=== PATIENT | female | born 1970 | race Caucasian/White ===

== ENCOUNTER 2019-11-09 12:31 | Observation (INO) | payer BC ==
[2019-11-09] MEDS ORDERED: Sodium Chloride 0.9% 1,000 ML IV ONE ×3 (12:49→14:53)
[2019-11-09] MEDS ORDERED: Ondansetron 4 MG/2 ML SDV IVPUSH ONE (13:15)
--- NOTE | 2019-11-09 13:21 | EDM.PDOC ---
ED HPI GENERAL MEDICAL PROBLEM - General Chief Complaint: General Stated Complaint: VOMITING Time Seen by Provider: 11/09/19 12:53 Source of Information: Reports: Patient History Limitations: Reports: No Limitations - History of Present Illness INITIAL COMMENTS - FREE TEXT/NARRATIVE: HISTORY AND PHYSICAL: History of present illness: Patient is a 49-year-old female who presents to the emergency room today with vague complaints of dizziness and nausea/vomiting. She states she has not felt well over the past few days. She did see Dr. Méndez yesterday, for a follow ( not regarding today s/s) but did mention her nausea and vomiting. He wrote for her to receive Zofran, but hasn't pick it up yet. Patient does mention that she had a family member last month and did have some increased stress related to this, although does not feel this is what is causing her symptoms today. She states that when she gets up from sitting she has the sensation of near syncope and dizziness that improves with taking a few moments to collect herself. She states she does have some generalized shortness of breath with ambulation although states it is not bothersome. She is asymptomatic when at rest. Patient denies any fever, chills, headache, change in vision, syncope or near syncope. Denies any recent head injury, trauma or falls. Denies any chest pain, back pain or cough. Denies any abdominal pain, diarrhea, constipation or dysuria. Denies any chance of . Has not noted any blood in urine or stool. Patient has been eating and drinking appropriately. Review of systems: As per history of present illness and below otherwise all systems reviewed and negative. Past medical history: As per history of present illness and as reviewed below otherwise noncontributory. Surgical history: As per history of present illness and as reviewed below otherwise noncontributory. Social history: See social history for further information Family history: As per history of present illness and as reviewed below otherwise noncontributory. Physical exam: General: Well developed and well nourished 49-year-old female. Alert and oriented. Nontoxic-appearing and in no acute distress. HEENT: Atraumatic, normocephalic, pupils equal and reactive bilaterally, negative for conjunctival pallor or scleral icterus, mucous membranes moist, TMs normal bilaterally, throat clear, neck supple, nontender, trachea midline. No drooling or trismus noted. No meningeal signs. No hot potato voice noted. Lungs: Clear to auscultation, breath sounds equal bilaterally, chest nontender. Heart: S1S2, regular rate and rhythm without overt murmur Abdomen: Soft, nondistended, nontender. Negative for masses or hepatosplenomegaly. Negative for costovertebral tenderness. Pelvis: Stable nontender. Skin: Intact, warm, dry. No lesions or rashes noted. Extremities: Atraumatic, moves all extremities per self without difficulty or deficits, negative for cords or calf pain. Neurovascular unremarkable. Neuro: Awake, alert, oriented. Cranial nerves II through XII unremarkable. Cerebellum unremarkable. Motor and sensory unremarkable throughout. Exam nonfocal. Notes: Patient's pulse remained slightly elevated, lactic was added to her lab work. She does have a pretty significant urinary tract infection along with elevated lactic. Fluids have been running. Patient states she does not have any abdominal or flank pain/tenderness. The hospitalist was consulted on this patient and she is agreeable to keeping her for further care and management. Patient is aware and agreeable as well. Vital signs remained stable Diagnostics: CBC, CMP, UA, CXR, EKG, lactic Therapeutics: Normal Saline x 2, Zofran, Rocephin Impression: Urosepsis Plan: Observation admission to med/surg Definitive disposition and diagnosis as appropriate pending reevaluation and review of above. - Related Data Allergies Allergy/AdvReac Type Severity Reaction Status Date / Time No Known Allergies Allergy Verified 05/04/18 04:11 Home Meds: Home Meds buPROPion HCl [Wellbutrin Xl] 11/09/19 [History] Past Medical History - Past Health History Medical/Surgical History: Denies Medical/Surgical History Cardiovascular History: Reports: Blood Clots/VTE/DVT Musculoskeletal History: Reports: Back Pain, Chronic - Infectious Disease History Infectious Disease History: Reports: Chicken Pox - Past Surgical History HEENT Surgical History: Reports: Tonsillectomy GI Surgical History: Reports: Appendectomy Female Surgical History: Reports: Tubal Ligation Other Musculoskeletal Surgeries/Procedures:: had back surgery with rods/pins Social & Family History - Family History Family Medical History: Noncontributory - Tobacco Use Smoking Status *Q: Never Smoker - Caffeine Use Caffeine Use: Reports: Coffee, Soda - Recreational Drug Use Recreational Drug Use: No ED ROS GENERAL - Review of Systems Review Of Systems: Comprehensive ROS is negative, except as noted in HPI. ED EXAM, GENERAL - Physical Exam Exam: See Below (See dictation) Course - Vital Signs Last Recorded V/S: Last Vital Signs Temp 96.5 F L 11/09/19 12:42 Pulse 101 H 11/09/19 14:05 Resp 18 11/09/19 14:05 BP 138/90 11/09/19 14:05 Pulse Ox 98 11/09/19 14:05 - Orders/Labs/Meds Orders: Active Orders 24 hr Category Date Time Status Admission Status [Patient Status] [ADT] Stat ADT 11/09/19 15:09 Active EKG Documentation Completion [RC] STAT Care 11/09/19 12:49 Active CULTURE URINE [RM] Stat Lab 11/09/19 13:58 Received Sodium Chloride 0.9% [Normal Saline] 1,000 ml Med 11/09/19 14:31 Active IV STAT Sodium Chloride 0.9% [Normal Saline] 1,000 ml Med 11/09/19 14:53 Active IV STAT cefTRIAXone [Rocephin in Dextrose,Iso-Osm 1 GM/50 ML] 1 Med 11/09/19 14:45 Active gm Premix Bag 1 bag IV ONETIME Medication Orders Sodium Chloride (Normal Saline) 1,000 mls @ 999 mls/hr IV STAT ONE Stop: 11/09/19 15:31 Last Admin: 11/09/19 14:57 Dose: 999 mls/hr Ceftriaxone Sodium/Dextrose 1 (gm/ Premix) 50 mls @ 100 mls/hr IV ONETIME ONE Stop: 11/09/19 15:14 Last Admin: 11/09/19 14:57 Dose: 100 mls/hr Sodium Chloride (Normal Saline) 1,000 mls @ 999 mls/hr IV STAT ONE Stop: 11/09/19 15:53 Last Admin: 11/09/19 15:11 Dose: Not Given Labs: Laboratory Tests 11/09/19 11/09/19 11/09/19 Range/Units 12:55 12:55 13:58 WBC 5.95 (4.0-11.0) K/uL RBC 4.42 (4.30-5.90) M/uL Hgb 13.0 (12.0-16.0) g/dL Hct 39.2 (36.0-46.0) % MCV 88.7 (80.0-98.0) fL MCH 29.4 (27.0-32.0) pg MCHC 33.2 (31.0-37.0) g/dL RDW Std Deviation 58.2 (28.0-62.0) fl RDW Coeff of Michalea 18 H (11.0-15.0) % Plt Count 217 (150-400) K/uL MPV 10.80 (7.40-12.00) fL Neut % (Auto) 73.1 (48.0-80.0) % Lymph % (Auto) 15.0 L (16.0-40.0) % [place] % (Auto) 10.4 (0.0-15.0) % Eos % (Auto) 1.0 (0.0-7.0) % Baso % (Auto) 0.5 (0.0-1.5) % Neut # (Auto) 4.4 (1.4-5.7) K/uL Lymph # (Auto) 0.9 (0.6-2.4) K/uL [place] # (Auto) 0.6 (0.0-0.8) K/uL Eos # (Auto) 0.1 (0.0-0.7) K/uL Baso # (Auto) 0.0 (0.0-0.1) K/uL Nucleated RBC % 0.0 /100WBC Nucleated RBCs # 0 K/uL Lactate (0.20-2.00) mmol/L Sodium 139 (136-145) mmol/L Potassium 3.3 L (3.5-5.1) mmol/L Chloride 99 (98-107) mmol/L Carbon Dioxide 24.4 (21.0-32.0) mmol/L BUN 8 (7.0-18.0) mg/dL Creatinine 1.0 (0.6-1.0) mg/dL Est Cr Clr Drug Dosing 78.53 mL/min Estimated GFR (MDRD) 58.9 ml/min Glucose 96 (74-106) mg/dL Calcium 9.6 (8.5-10.1) mg/dL Total Bilirubin 1.6 H (0.2-1.0) mg/dL AST 88 H (15-37) IU/L ALT 73 H (14-63) IU/L Alkaline Phosphatase 84 (46-116) U/L Total Protein 7.8 (6.4-8.2) g/dL Albumin 4.0 (3.4-5.0) g/dL Globulin 3.8 (2.6-4.0) g/dL Albumin/Globulin Ratio 1.1 (0.9-1.6) Urine Color DARK YELLOW Urine Appearance SLT CLOUDY Urine pH 6.0 (5.0-8.0) Ur Specific [place] 1.025 (1.001-1.035) Urine Protein TRACE H (NEGATIVE) mg/dL Urine Glucose (UA) NEGATIVE (NEGATIVE) mg/dL Urine Ketones TRACE H (NEGATIVE) mg/dL Urine Occult Blood NEGATIVE (NEGATIVE) Urine Nitrite POSITIVE H (NEGATIVE) Urine Bilirubin MODERATE H (NEGATIVE) Urine Ictotest NEGATIVE Urine Urobilinogen 4.0 H (<2.0) EU/dL Ur Leukocyte Esterase TRACE H (NEGATIVE) Urine RBC 0-2 (0-2/HPF) Urine WBC 4-6 (0-5/HPF) Ur Epithelial Cells MODERATE (NONE-FEW) Urine Bacteria 4+ H (NEGATIVE) Urine Mucus LIGHT (NONE-MOD) 11/09/19 Range/Units 14:55 WBC (4.0-11.0) K/uL RBC (4.30-5.90) M/uL Hgb (12.0-16.0) g/dL Hct (36.0-46.0) % MCV (80.0-98.0) fL MCH (27.0-32.0) pg MCHC (31.0-37.0) g/dL RDW Std Deviation (28.0-62.0) fl RDW Coeff of Michaela (11.0-15.0) % Plt Count (150-400) K/uL MPV (7.40-12.00) fL Neut % (Auto) (48.0-80.0) % Lymph % (Auto) (16.0-40.0) % [place] % (Auto) (0.0-15.0) % Eos % (Auto) (0.0-7.0) % Baso % (Auto) (0.0-1.5) % Neut # (Auto) (1.4-5.7) K/uL Lymph # (Auto) (0.6-2.4) K/uL [place] # (Auto) (0.0-0.8) K/uL Eos # (Auto) (0.0-0.7) K/uL Baso # (Auto) (0.0-0.1) K/uL Nucleated RBC % /100WBC Nucleated RBCs # K/uL Lactate 3.0 H* (0.20-2.00) mmol/L Sodium (136-145) mmol/L Potassium (3.5-5.1) mmol/L Chloride (98-107) mmol/L Carbon Dioxide (21.0-32.0) mmol/L BUN (7.0-18.0) mg/dL Creatinine (0.6-1.0) mg/dL Est Cr Clr Drug Dosing mL/min Estimated GFR (MDRD) ml/min Glucose (74-106) mg/dL Calcium (8.5-10.1) mg/dL Total Bilirubin (0.2-1.0) mg/dL AST (15-37) IU/L ALT (14-63) IU/L Alkaline Phosphatase (46-116) U/L Total Protein (6.4-8.2) g/dL Albumin (3.4-5.0) g/dL Globulin (2.6-4.0) g/dL Albumin/Globulin Ratio (0.9-1.6) Urine Color Urine Appearance Urine pH (5.0-8.0) Ur Specific [place] (1.001-1.035) Urine Protein (NEGATIVE) mg/dL Urine Glucose (UA) (NEGATIVE) mg/dL Urine Ketones (NEGATIVE) mg/dL Urine Occult Blood (NEGATIVE) Urine Nitrite (NEGATIVE) Urine Bilirubin (NEGATIVE) Urine Ictotest Urine Urobilinogen (<2.0) EU/dL Ur Leukocyte Esterase (NEGATIVE) Urine RBC (0-2/HPF) Urine WBC (0-5/HPF) Ur Epithelial Cells (NONE-FEW) Urine Bacteria (NEGATIVE) Urine Mucus (NONE-MOD) Meds: Medications Generic Name Dose Route Start Last Admin Trade Name Freq PRN Reason Stop Dose Admin Sodium Chloride 1,000 mls @ 999 mls/hr 11/09/19 14:31 11/09/19 14:57 Normal Saline IV 11/09/19 15:31 999 mls/hr STAT ONE Administration Ceftriaxone Sodium/Dextrose 1 50 mls @ 100 mls/hr 11/09/19 14:45 11/09/19 14: 57 gm/ Premix IV 11/09/19 15:14 100 mls/hr ONETIME ONE Administration Sodium Chloride 1,000 mls @ 999 mls/hr 11/09/19 14:53 11/09/19 15:11 Normal Saline IV 11/09/19 15:53 Not Given STAT ONE Discontinued Medications Generic Name Dose Route Start Last Admin Trade Name Alpehsq PRN Reason Stop Dose Admin Sodium Chloride 1,000 mls @ 999 mls/hr 11/09/19 12:49 11/09/19 12:54 Normal Saline IV 11/09/19 13:49 999 mls/hr STAT ONE Administration Ondansetron HCl 4 mg 11/09/19 13:15 11/09/19 13:25 Zofran IVPUSH 11/09/19 13:16 4 mg ONETIME ONE Administration Departure - Departure Time of Disposition: 15:13 Disposition: Refer to Observation Clinical Impression: UTI, Urinary tract infectious disease Sepsis Qualifiers: Sepsis type: sepsis due to unspecified organism Sepsis acute organ dysfunction status: unspecified Qualified Code(s): A41.9 - Sepsis, unspecified organism - Discharge Information Referrals: Ryder Mann MD [Primary Care Provider] - Forms: ED Department Discharge Sepsis Event Note - Evaluation Sepsis Screening Result: No Definite Risk - Focused Exam Vital Signs: Vital Signs Temp Pulse Resp BP Pulse Ox 11/09/19 14:05 101 H 18 138/90 98 11/09/19 12:42 96.5 F L 106 H 16 138/92 H 100 Date Exam was Performed: 11/09/19 Time Exam was Performed: 15:12 - My Orders Last 24 Hours: My Active Orders 11/09/19 12:49 EKG Documentation Completion [RC] STAT 11/09/19 13:58 CULTURE URINE [RM] Stat 11/09/19 14:31 Sodium Chloride 0.9% [Normal Saline] 1,000 ml IV STAT 11/09/19 14:45 cefTRIAXone [Rocephin in Dextrose,Iso-Osm 1 GM/50 ML] 1 gm Premix Bag 1 bag IV ONETIME 11/09/19 14:53 Sodium Chloride 0.9% [Normal Saline] 1,000 ml IV STAT 11/09/19 15:09 Admission Status [Patient Status] [ADT] Stat - Assessment/Plan Last 24 Hours: My Active Orders 11/09/19 12:49 EKG Documentation Completion [RC] STAT 11/09/19 13:58 CULTURE URINE [RM] Stat 11/09/19 14:31 Sodium Chloride 0.9% [Normal Saline] 1,000 ml IV STAT 11/09/19 14:45 cefTRIAXone [Rocephin in Dextrose,Iso-Osm 1 GM/50 ML] 1 gm Premix Bag 1 bag IV ONETIME 11/09/19 14:53 Sodium Chloride 0.9% [Normal Saline] 1,000 ml IV STAT 11/09/19 15:09 Admission Status [Patient Status] [ADT] Stat
[2019-11-09 14:03] LABS: CARBON DIOXIDE,CO2 24.4 mmol/L (21.0-32.0); POTASSIUM,K 3.3 mmol/L (3.5-5.1)
--- NOTE | 2019-11-09 14:15 | CR ---
Chest: Portable view of the chest was obtained. Comparison: Prior chest x-ray of 05/04/18. Heart size and mediastinum are normal. Lungs are clear. Bony structures are grossly intact. Impression: 1. Nothing acute is seen on portable chest x-ray. Diagnostic code #1 This report was dictated in [place] Standard Time
[2019-11-09] MEDS ORDERED: cefTRIAXone 1 GM in Premix Bag 1 BAG IV ONE ×2 (14:45→18:15)
[2019-11-09] MEDS ORDERED: Ondansetron 4 MG Tab.DIS PO PRN (15:22)
[2019-11-09] MEDS ORDERED: Ondansetron 4 MG/2 ML SDV IVPUSH PRN (15:22)
[2019-11-09] MEDS ORDERED: Ibuprofen 600 MG Tab PO PRN (15:22)
[2019-11-09] MEDS ORDERED: Ketorolac 30 MG/ML SDV IV PRN (15:22)
[2019-11-09] MEDS ORDERED: Acetaminophen 325 MG Tab PO PRN (15:22)
[2019-11-09] MEDS ORDERED: Enoxaparin 40 MG/0.4 ML Syringe SUBCUT SCH (15:30)
[2019-11-09] MEDS ORDERED: Pantoprazole 40 MG in Sodium Chloride 0.9% 10 ML IV ONE (15:33)
--- NOTE | 2019-11-09 15:36 | PCM.HP.2 ---
H&P History of Present Illness - General Date of Service: 11/09/19 Admit Problem/Dx: Admission Diagnosis/Problem Admission Diagnosis/Problem Urosepsis - History of Present Illness Initial Comments - Free Text/Narative: 49 y/o female with history of alcohol abuse who presented to the ER complaining of nausea, vomiting and generalized weakness. She was seen yesterday by her PCP and was prescribed Zofran but she states she never picked it up. States she woke up this morning feeling nauseous, dry heaving. No chest pain, dyspnea. She would feel lightheaded when standing up. No syncopal episodes. Denies abdominal pain, dysuria, diarrhea. However, in the ER she was found to have UTI and elevated lactate 3.0. No leukocytosis. Mildly elevated LFTs. She was administered 2 L NS in the ER. - Related Data Allergies/Adverse Reactions: Allergies Allergy/AdvReac Type Severity Reaction Status Date / Time No Known Allergies Allergy Verified 05/04/18 04:11 Home Medications: Home Meds Ondansetron [Zofran ODT] 1 tab PO Q6HR PRN 11/09/19 [History] buPROPion HCl [Wellbutrin Xl] 300 mg PO DAILY 11/09/19 [History] Past Medical History - Past Health History Medical/Surgical History: Denies Medical/Surgical History Cardiovascular History: Reports: Blood Clots/VTE/DVT Musculoskeletal History: Reports: Back Pain, Chronic - Infectious Disease History Infectious Disease History: Reports: Chicken Pox - Past Surgical History HEENT Surgical History: Reports: Tonsillectomy GI Surgical History: Reports: Appendectomy Female Surgical History: Reports: Tubal Ligation Other Musculoskeletal Surgeries/Procedures:: had back surgery with rods/pins Social & Family History - Family History Family Medical History: Noncontributory - Tobacco Use Smoking Status *Q: Never Smoker - Caffeine Use Caffeine Use: Reports: Coffee, Soda - Recreational Drug Use Recreational Drug Use: No H&P Review of Systems - Review of Systems: Review Of Systems: Comprehensive ROS is negative, except as noted in HPI. Exam - Exam Exam: See Below - Vital Signs Vital Signs: Last Vital Signs Temp 36.3 C 11/09/19 14:35 Pulse 89 11/09/19 14:35 Resp 18 11/09/19 14:35 BP 141/92 H 11/09/19 14:35 Pulse Ox 99 02/12/20 14:35 Weight: 102.058 kg - Exam General: Alert, Oriented, Cooperative HEENT: Conjunctiva Clear. No: Mucosa Moist & [place] Lungs: Clear to Auscultation, Normal Respiratory Effort. No: Crackles, Wheezing Cardiovascular: Regular Rate, Regular Rhythm GI/Abdominal Exam: Normal Bowel Sounds, Soft, Non-Tender, No Distention Back Exam: Normal Inspection. No: CVA Tenderness (L), CVA Tenderness (R) Extremities: Normal Inspection, Non-Tender, No Pedal Edema Skin: Warm, Dry - Patient Data Lab Results Last 24 hrs: Laboratory Results - last 24 hr 11/09/19 11/09/19 11/09/19 Range/Units 12:55 12:55 13:58 WBC 5.95 (4.0-11.0) K/uL RBC 4.42 (4.30-5.90) M/uL Hgb 13.0 (12.0-16.0) g/dL Hct 39.2 (36.0-46.0) % MCV 88.7 (80.0-98.0) fL MCH 29.4 (27.0-32.0) pg MCHC 33.2 (31.0-37.0) g/dL RDW Std Deviation 58.2 (28.0-62.0) fl RDW Coeff of Michaela 18 H (11.0-15.0) % Plt Count 217 (150-400) K/uL MPV 10.80 (7.40-12.00) fL Neut % (Auto) 73.1 (48.0-80.0) % Lymph % (Auto) 15.0 L (16.0-40.0) % [place] % (Auto) 10.4 (0.0-15.0) % Eos % (Auto) 1.0 (0.0-7.0) % Baso % (Auto) 0.5 (0.0-1.5) % Neut # (Auto) 4.4 (1.4-5.7) K/uL Lymph # (Auto) 0.9 (0.6-2.4) K/uL [place] # (Auto) 0.6 (0.0-0.8) K/uL Eos # (Auto) 0.1 (0.0-0.7) K/uL Baso # (Auto) 0.0 (0.0-0.1) K/uL Nucleated RBC % 0.0 /100WBC Nucleated RBCs # 0 K/uL Lactate (0.20-2.00) mmol/L Sodium 139 (136-145) mmol/L Potassium 3.3 L (3.5-5.1) mmol/L Chloride 99 (98-107) mmol/L Carbon Dioxide 24.4 (21.0-32.0) mmol/L BUN 8 (7.0-18.0) mg/dL Creatinine 1.0 (0.6-1.0) mg/dL Est Cr Clr Drug Dosing 78.53 mL/min Estimated GFR (MDRD) 58.9 ml/min Glucose 96 (74-106) mg/dL Calcium 9.6 (8.5-10.1) mg/dL Total Bilirubin 1.6 H (0.2-1.0) mg/dL AST 88 H (15-37) IU/L ALT 73 H (14-63) IU/L Alkaline Phosphatase 84 (46-116) U/L Total Protein 7.8 (6.4-8.2) g/dL Albumin 4.0 (3.4-5.0) g/dL Globulin 3.8 (2.6-4.0) g/dL Albumin/Globulin Ratio 1.1 (0.9-1.6) Urine Color DARK YELLOW Urine Appearance SLT CLOUDY Urine pH 6.0 (5.0-8.0) Ur Specific [place] 1.025 (1.001-1.035) Urine Protein TRACE H (NEGATIVE) mg/dL Urine Glucose (UA) NEGATIVE (NEGATIVE) mg/dL Urine Ketones TRACE H (NEGATIVE) mg/dL Urine Occult Blood NEGATIVE (NEGATIVE) Urine Nitrite POSITIVE H (NEGATIVE) Urine Bilirubin MODERATE H (NEGATIVE) Urine Ictotest NEGATIVE Urine Urobilinogen 4.0 H (<2.0) EU/dL Ur Leukocyte Esterase TRACE H (NEGATIVE) Urine RBC 0-2 (0-2/HPF) Urine WBC 4-6 (0-5/HPF) Ur Epithelial Cells MODERATE (NONE-FEW) Urine Bacteria 4+ H (NEGATIVE) Urine Mucus LIGHT (NONE-MOD) 11/09/19 Range/Units 14:55 WBC (4.0-11.0) K/uL RBC (4.30-5.90) M/uL Hgb (12.0-16.0) g/dL Hct (36.0-46.0) % MCV (80.0-98.0) fL MCH (27.0-32.0) pg MCHC (31.0-37.0) g/dL RDW Std Deviation (28.0-62.0) fl RDW Coeff of Michaela (11.0-15.0) % Plt Count (150-400) K/uL MPV (7.40-12.00) fL Neut % (Auto) (48.0-80.0) % Lymph % (Auto) (16.0-40.0) % [place] % (Auto) (0.0-15.0) % Eos % (Auto) (0.0-7.0) % Baso % (Auto) (0.0-1.5) % Neut # (Auto) (1.4-5.7) K/uL Lymph # (Auto) (0.6-2.4) K/uL [place] # (Auto) (0.0-0.8) K/uL Eos # (Auto) (0.0-0.7) K/uL Baso # (Auto) (0.0-0.1) K/uL Nucleated RBC % /100WBC Nucleated RBCs # K/uL Lactate 3.0 H* (0.20-2.00) mmol/L Sodium (136-145) mmol/L Potassium (3.5-5.1) mmol/L Chloride (98-107) mmol/L Carbon Dioxide (21.0-32.0) mmol/L BUN (7.0-18.0) mg/dL Creatinine (0.6-1.0) mg/dL Est Cr Clr Drug Dosing mL/min Estimated GFR (MDRD) ml/min Glucose (74-106) mg/dL Calcium (8.5-10.1) mg/dL Total Bilirubin (0.2-1.0) mg/dL AST (15-37) IU/L ALT (14-63) IU/L Alkaline Phosphatase (46-116) U/L Total Protein (6.4-8.2) g/dL Albumin (3.4-5.0) g/dL Globulin (2.6-4.0) g/dL Albumin/Globulin Ratio (0.9-1.6) Urine Color Urine Appearance Urine pH (5.0-8.0) Ur Specific [place] (1.001-1.035) Urine Protein (NEGATIVE) mg/dL Urine Glucose (UA) (NEGATIVE) mg/dL Urine Ketones (NEGATIVE) mg/dL Urine Occult Blood (NEGATIVE) Urine Nitrite (NEGATIVE) Urine Bilirubin (NEGATIVE) Urine Ictotest Urine Urobilinogen (<2.0) EU/dL Ur Leukocyte Esterase (NEGATIVE) Urine RBC (0-2/HPF) Urine WBC (0-5/HPF) Ur Epithelial Cells (NONE-FEW) Urine Bacteria (NEGATIVE) Urine Mucus (NONE-MOD) Result Diagrams: 11/09/19 12:55 11/09/19 12:55 Angel Luis Results Last 24 hrs: Microbiology 11/09/19 14:34 Influenza Type A Antigen Screen - Final Nasopharyngeal Swab NEGATIVE INFLUENZA A VIRUS AG REFERENCE RANGE: NEGATIVE Influenza Type B Antigen Screen - Final NEGATIVE INFLUENZA B VIRUS AG REFERENCE RANGE: NEGATIVE Sepsis Event Note - Evaluation Sepsis Screening Result: No Definite Risk - Focused Exam Vital Signs: Vital Signs Temp Pulse Resp BP Pulse Ox 11/09/19 14:35 36.3 C 89 18 141/92 H 99 11/09/19 14:05 101 H 18 138/90 98 11/09/19 13:15 89 18 100 11/09/19 12:42 35.8 C L 106 H 16 138/92 H 100 Date Exam was Performed: 11/09/19 Time Exam was Performed: 17:26 Problem List Initiated/Reviewed/Updated: Yes Orders Last 24hrs: Active Orders 24 hr Category Date Time Status Admission Status [Patient Status] [ADT] Stat ADT 11/09/19 15:09 Active EKG Documentation Completion [RC] STAT Care 11/09/19 12:49 Active Intake and Output [RC] QSHIFT Care 11/09/19 15:22 Active Oxygen Therapy [RC] PRN Care 11/09/19 15:22 Active Up ad [place] [RC] ASDIRECTED Care 11/09/19 15:22 Active VTE/DVT Education [RC] PER UNIT ROUTINE Care 11/09/19 15:22 Active Vital Signs [RC] Q4H Care 11/09/19 15:22 Active Nothing per Oral Now Diet [DIET] Diet 11/09/19 Dinner Active Abdomen Pelvis w Cont [CT] Stat Exams 11/09/19 15:28 Ordered CBC WITH AUTO DIFF [HEME] AM Lab 11/10/19 05:11 Ordered CBC WITH AUTO DIFF [HEME] AM Lab 11/11/19 05:11 Ordered COMPREHENSIVE METABOLIC PN,CMP [CHEM] AM Lab 11/10/19 05:11 Ordered COMPREHENSIVE METABOLIC PN,CMP [CHEM] AM Lab 11/11/19 05:11 Ordered CULTURE BLOOD [BC] Stat Lab 11/09/19 15:25 Ordered CULTURE BLOOD [BC] Stat Lab 11/09/19 15:25 Ordered CULTURE URINE [RM] Stat Lab 11/09/19 13:58 Received HCG QUALITATIVE,URINE [URCHEM] Stat Lab 11/09/19 13:58 Received LACTATE WITH REFLEX [BG] Stat Lab 11/09/19 20:00 Ordered MAGNESIUM [CHEM] Stat Lab 11/09/19 15:35 Ordered Acetaminophen [Tylenol] Med 11/09/19 15:22 Active 650 mg PO Q4H PRN Enoxaparin [Lovenox] Med 11/09/19 15:30 Active 40 mg SUBCUT Q24H Ibuprofen [Motrin] Med 11/09/19 15:22 Active 600 mg PO Q6H PRN Ketorolac [Toradol] Med 11/09/19 15:22 Active 30 mg IV Q6H PRN Ondansetron [Zofran ODT] Med 11/09/19 15:22 Active 4 mg PO Q4H PRN Ondansetron [Zofran] Med 11/09/19 15:22 Active 4 mg IVPUSH Q4H PRN Pantoprazole [ProTONIX IV] 40 mg Med 11/10/19 09:00 Active Sodium Chloride 0.9% [Normal Saline] 10 ml IV DAILY Sodium Chloride 0.9% [Normal Saline] 1,000 ml Med 11/09/19 14:53 Active IV STAT Sodium Chloride 0.9% [Normal Saline] 1,000 ml Med 11/09/19 15:30 Active IV STAT cefTRIAXone [Rocephin in Dextrose,Iso-Osm 1 GM/50 ML] 1 Med 11/09/19 15:32 Active gm Premix Bag 1 bag IV ONETIME cefTRIAXone [Rocephin in Dextrose,Iso-Osm 2 GM/50 ML] 2 Med 11/10/19 14:00 Active gm Premix Bag 1 bag IV Q24H Blood Culture x2 Reflex Set [OM.PC] Stat Oth 11/09/19 15:25 Ordered Resuscitation Status Routine Resus Stat 11/09/19 15:22 Ordered Medication Orders Acetaminophen (Tylenol) 650 mg PO Q4H PRN PRN Reason: Pain (Mild 1-3)/fever Enoxaparin Sodium (Lovenox) 40 mg SUBCUT Q24H MARYAN Sodium Chloride (Normal Saline) 1,000 mls @ 999 mls/hr IV STAT ONE Stop: 11/09/19 15:53 Last Admin: 11/09/19 15:11 Dose: Not Given Sodium Chloride (Normal Saline) 1,000 mls @ 200 mls/hr IV STAT MARYAN Stop: 11/10/19 20:29 Ceftriaxone Sodium/Dextrose 1 (gm/ Premix) 50 mls @ 100 mls/hr IV ONETIME ONE Stop: 11/09/19 16:01 Ceftriaxone Sodium/Dextrose 2 (gm/ Premix) 50 mls @ 100 mls/hr IV Q24H MARYAN Pantoprazole Sodium 40 mg/ (Sodium Chloride) 10 mls @ 300 mls/hr IV DAILY MARYAN Ibuprofen (Motrin) 600 mg PO Q6H PRN PRN Reason: Pain (mild 1-3) Ketorolac Tromethamine (Toradol) 30 mg IV Q6H PRN PRN Reason: Pain (moderate 4-6) Ondansetron HCl (Zofran Odt) 4 mg PO Q4H PRN PRN Reason: nausea, able to take PO Ondansetron HCl (Zofran) 4 mg IVPUSH Q4H PRN PRN Reason: Nausea Assessment/Plan Comment:: A: 1. Severe sepsis secondary to UTI 2. Nausea, vomiting 3. Mildly elevated liver enzymes 4. PMH alcohol abuse, depression P: 1. Unsure about elevated lactate. Likely multifactorial due to UTI, dehydration. Will treat for sepsis secondary to UTI. Hydrate with NS 2L. Continue ceftriaxone 2 g IV daily, pending urine, blood cultures. Repeat lactate Q5H until normalized. Will advance diet as tolerated. Pantoprazole IV daily for suspected gastritis due to alcohol intake. May consider starting carafate once she can tolerate PO. CIWA assessment and ativan PRN for withdrawal symptoms. Dispo: 1-2 days.
[2019-11-09] MEDS: Sodium Chloride 0.9% 1,000 ML IV SCH ×2 (16:25→22:22)
[2019-11-09] MEDS ORDERED: Magnesium Sulfate/Water 2 GM in Premix Bag 1 BAG IV ONE (16:46)
[2019-11-09] MEDS: cefTRIAXone 1 GM in Premix Bag 1 BAG IV ONE ×2 (16:46→18:22)
[2019-11-09] MEDS ORDERED: Iopamidol 755 MG/ML 200 ML Multipack Bottle IVPUSH ONE (16:54)
--- NOTE | 2019-11-09 17:15 | CT ---
CT abdomen and pelvis Technique: Multiple axial sections were obtained from above the dome of the diaphragm inferiorly through the pubic symphysis. Intravenous contrast was utilized. No oral contrast has been given. Comparison: No prior abdominal imaging. Findings: Visualized lung bases show nothing acute. Diffuse fatty infiltration is seen within the liver. Spleen appears within normal limits. Adrenal glands show no nodule. Pancreas appears within normal limits. Gallbladder contains no calcified gallstones. Kidneys show symmetric contrast enhancement. No inflammatory change is noted around the kidneys. Aorta shows no aneurysm. No retroperitoneal adenopathy or mesenteric abnormalities are seen. No pelvic mass or adenopathy is seen. No free fluid or inflammatory change is seen within the abdomen or pelvis. Surgical material is seen next to the tip of the cecum. Appendix is not visualized. Bone window settings were reviewed which show degenerative change within the spine with previous surgery at L5-S1. No acute osseous finding is appreciated. Small fat-containing umbilical hernia is noted. Impression: 1. Diffuse fatty infiltration within the liver. 2. Other findings believed to be incidental as noted above. 3. Nothing acute is appreciated on CT study of the abdomen and pelvis. Note: Normal CT study does not exclude pyelonephritis. Study does excludes complications of pyelonephritis. Diagnostic code #2 This report was dictated in [place] Standard Time
[2019-11-09] MEDS ORDERED: LORazepam 2 MG/ML SDV IVPUSH PRN (17:17)
[2019-11-09] MEDS ORDERED: Temazepam 15 MG Cap PO PRN (17:39)
[2019-11-09] MEDS ORDERED: Morphine 2 MG/ML Syringe IVPUSH PRN (23:46)
[2019-11-10] MEDS: Apixaban 5 MG Tab PO SCH ×2 (00:24→08:34)
[2019-11-10] MEDS ORDERED: Sodium Chloride 0.9% 1,000 ML IV SCH (03:30)
[2019-11-10 06:25] LABS: BLOOD UREA NITROGEN,BUN 6 mg/dL (7.0-18.0); CARBON DIOXIDE,CO2 25.7 mmol/L (21.0-32.0); CHLORIDE,CL 106 mmol/L (98-107); GLUCOSE RANDOM 75 mg/dL (74-106); POTASSIUM,K 3.6 mmol/L (3.5-5.1); SODIUM,NA 140 mmol/L (136-145)
[2019-11-10] MEDS ORDERED: Pantoprazole 40 MG in Sodium Chloride 0.9% 10 ML IV SCH (09:00)
[2019-11-10 11:49] VITALS: BP 144/96; PULSE 79
--- NOTE | 2019-11-10 12:28 | PCM.DCSUM1 ---
Discharge Summary - Hospital Course Free Text/Narrative:: 49 y/o female who presented to the ER complaining of nausea, vomiting. She was found to have elevated lactate and UTI. Admitted for severe sepsis secondary to UTI. She was aggressively hydrated and started on ceftriaxone. She did relatively well. Lactate normalized and symptoms had resolved. She was discharged home on omeprazole, carafate and nitrofurantoin. She was advised to abstain from alcohol and any mood altering substance. Follow-up with PCP in 1-2 weeks. - Discharge Data Discharge Date: 11/10/19 Discharge Disposition: Home, Self-Care 01 Condition: Good - Referral to Home Health Primary Care Physician: Ryder Brewer MD - Patient Instructions Diet: Regular Diet as Tolerated, No Alcoholic Beverages Activity: As Tolerated Notify Provider of: Fever, Increased Pain, Swelling and Redness, Nausea and/or Vomiting - Discharge Plan Prescriptions/Med Rec: Nitrofurantoin Monohyd/M-Cryst [Macrobid 100 mg Capsule] 100 mg PO BID 3 Days # 6 capsule Omeprazole 20 mg PO ACBREAKFAST 30 Days #30 cap.sr Sucralfate [Carafate] 1 gm PO TIDAC 5 Days #15 cup Home Medications: Home Meds Apixaban [Eliquis] 5 mg PO BID 11/09/19 [History] Ondansetron [Zofran ODT] 1 tab PO Q6HR PRN 11/09/19 [History] buPROPion HCl [Wellbutrin Xl] 300 mg PO DAILY 11/09/19 [History] Nitrofurantoin Monohyd/M-Cryst [Macrobid 100 mg Capsule] 100 mg PO BID 3 Days # 6 capsule 11/10/19 [Rx] Omeprazole 20 mg PO ACBREAKFAST 30 Days #30 cap.sr 11/10/19 [Rx] Sucralfate [Carafate] 1 gm PO TIDAC 5 Days #15 cup 11/10/19 [Rx] Patient Handouts: Nitrofurantoin tablets or capsules, Gastritis, Adult, Sucralfate tablets, Urosepsis, Omeprazole tablets (OTC) Referrals: Ryder Mann MD [Primary Care Provider] - 11/22/19 1:00 pm - Discharge Summary/Plan Comment DC Time >30 min.: No - Patient Data Vitals - Most Recent: Last Vital Signs Temp 36.6 C 11/10/19 11:57 Pulse 79 11/10/19 11:57 Resp 16 11/10/19 11:57 BP 144/96 H 11/10/19 11:57 Pulse Ox 96 11/10/19 11:57 Weight - Most Recent: 102.058 kg I&O - Last 24 hours: Intake & Output 11/09/19 11/10/19 11/10/19 22:59 06:59 14:59 Intake Total 60 980 Output Total 400 Balance 60 580 Lab Results - Last 24 hrs: Laboratory Results - last 24 hr 11/09/19 11/09/19 11/09/19 Range/Units 12:55 12:55 12:55 WBC 5.95 (4.0-11.0) K/uL RBC 4.42 (4.30-5.90) M/uL Hgb 13.0 (12.0-16.0) g/dL Hct 39.2 (36.0-46.0) % MCV 88.7 (80.0-98.0) fL MCH 29.4 (27.0-32.0) pg MCHC 33.2 (31.0-37.0) g/dL RDW Std Deviation 58.2 (28.0-62.0) fl RDW Coeff of Michaela 18 H (11.0-15.0) % Plt Count 217 (150-400) K/uL MPV 10.80 (7.40-12.00) fL Neut % (Auto) 73.1 (48.0-80.0) % Lymph % (Auto) 15.0 L (16.0-40.0) % Meade % (Auto) 10.4 (0.0-15.0) % Eos % (Auto) 1.0 (0.0-7.0) % Baso % (Auto) 0.5 (0.0-1.5) % Neut # (Auto) 4.4 (1.4-5.7) K/uL Lymph # (Auto) 0.9 (0.6-2.4) K/uL Meade # (Auto) 0.6 (0.0-0.8) K/uL Eos # (Auto) 0.1 (0.0-0.7) K/uL Baso # (Auto) 0.0 (0.0-0.1) K/uL Nucleated RBC % 0.0 /100WBC Nucleated RBCs # 0 K/uL Lactate (0.20-2.00) mmol/L Sodium 139 (136-145) mmol/L Potassium 3.3 L (3.5-5.1) mmol/L Chloride 99 (98-107) mmol/L Carbon Dioxide 24.4 (21.0-32.0) mmol/L BUN 8 (7.0-18.0) mg/dL Creatinine 1.0 (0.6-1.0) mg/dL Est Cr Clr Drug Dosing 78.53 mL/min Estimated GFR (MDRD) 58.9 ml/min Glucose 96 (74-106) mg/dL Calcium 9.6 (8.5-10.1) mg/dL Magnesium 1.3 L (1.8-2.4) mg/dL Total Bilirubin 1.6 H (0.2-1.0) mg/dL AST 88 H (15-37) IU/L ALT 73 H (14-63) IU/L Alkaline Phosphatase 84 (46-116) U/L Total Protein 7.8 (6.4-8.2) g/dL Albumin 4.0 (3.4-5.0) g/dL Globulin 3.8 (2.6-4.0) g/dL Albumin/Globulin Ratio 1.1 (0.9-1.6) Urine Color Urine Appearance Urine pH (5.0-8.0) Ur Specific [place] (1.001-1.035) Urine Protein (NEGATIVE) mg/dL Urine Glucose (UA) (NEGATIVE) mg/dL Urine Ketones (NEGATIVE) mg/dL Urine Occult Blood (NEGATIVE) Urine Nitrite (NEGATIVE) Urine Bilirubin (NEGATIVE) Urine Ictotest Urine Urobilinogen (<2.0) EU/dL Ur Leukocyte Esterase (NEGATIVE) Urine RBC (0-2/HPF) Urine WBC (0-5/HPF) Ur Epithelial Cells (NONE-FEW) Urine Bacteria (NEGATIVE) Urine Mucus (NONE-MOD) Urine HCG, Qual (NEGATIVE) 11/09/19 11/09/19 11/09/19 Range/Units 13:58 13:58 14:55 WBC (4.0-11.0) K/uL RBC (4.30-5.90) M/uL Hgb (12.0-16.0) g/dL Hct (36.0-46.0) % MCV (80.0-98.0) fL MCH (27.0-32.0) pg MCHC (31.0-37.0) g/dL RDW Std Deviation (28.0-62.0) fl RDW Coeff of Michaela (11.0-15.0) % Plt Count (150-400) K/uL MPV (7.40-12.00) fL Neut % (Auto) (48.0-80.0) % Lymph % (Auto) (16.0-40.0) % Meade % (Auto) (0.0-15.0) % Eos % (Auto) (0.0-7.0) % Baso % (Auto) (0.0-1.5) % Neut # (Auto) (1.4-5.7) K/uL Lymph # (Auto) (0.6-2.4) K/uL Meade # (Auto) (0.0-0.8) K/uL Eos # (Auto) (0.0-0.7) K/uL Baso # (Auto) (0.0-0.1) K/uL Nucleated RBC % /100WBC Nucleated RBCs # K/uL Lactate 3.0 H* (0.20-2.00) mmol/L Sodium (136-145) mmol/L Potassium (3.5-5.1) mmol/L Chloride (98-107) mmol/L Carbon Dioxide (21.0-32.0) mmol/L BUN (7.0-18.0) mg/dL Creatinine (0.6-1.0) mg/dL Est Cr Clr Drug Dosing mL/min Estimated GFR (MDRD) ml/min Glucose (74-106) mg/dL Calcium (8.5-10.1) mg/dL Magnesium (1.8-2.4) mg/dL Total Bilirubin (0.2-1.0) mg/dL AST (15-37) IU/L ALT (14-63) IU/L Alkaline Phosphatase (46-116) U/L Total Protein (6.4-8.2) g/dL Albumin (3.4-5.0) g/dL Globulin (2.6-4.0) g/dL Albumin/Globulin Ratio (0.9-1.6) Urine Color DARK YELLOW Urine Appearance SLT CLOUDY Urine pH 6.0 (5.0-8.0) Ur Specific [place] 1.025 (1.001-1.035) Urine Protein TRACE H (NEGATIVE) mg/dL Urine Glucose (UA) NEGATIVE (NEGATIVE) mg/dL Urine Ketones TRACE H (NEGATIVE) mg/dL Urine Occult Blood NEGATIVE (NEGATIVE) Urine Nitrite POSITIVE H (NEGATIVE) Urine Bilirubin MODERATE H (NEGATIVE) Urine Ictotest NEGATIVE Urine Urobilinogen 4.0 H (<2.0) EU/dL Ur Leukocyte Esterase TRACE H (NEGATIVE) Urine RBC 0-2 (0-2/HPF) Urine WBC 4-6 (0-5/HPF) Ur Epithelial Cells MODERATE (NONE-FEW) Urine Bacteria 4+ H (NEGATIVE) Urine Mucus LIGHT (NONE-MOD) Urine HCG, Qual NEGATIVE (NEGATIVE) 11/09/19 11/10/19 11/10/19 Range/Units 20:06 05:57 05:57 WBC 2.39 L (4.0-11.0) K/uL RBC 3.50 L (4.30-5.90) M/uL Hgb 10.3 L (12.0-16.0) g/dL Hct 32.0 L (36.0-46.0) % MCV 91.4 (80.0-98.0) fL MCH 29.4 (27.0-32.0) pg MCHC 32.2 (31.0-37.0) g/dL RDW Std Deviation 61.1 (28.0-62.0) fl RDW Coeff of Michaela 18 H (11.0-15.0) % Plt Count 121 L (150-400) K/uL MPV 10.30 (7.40-12.00) fL Neut % (Auto) 62.0 (48.0-80.0) % Lymph % (Auto) 22.6 (16.0-40.0) % [place] % (Auto) 12.1 (0.0-15.0) % Eos % (Auto) 2.5 (0.0-7.0) % Baso % (Auto) 0.8 (0.0-1.5) % Neut # (Auto) 1.5 (1.4-5.7) K/uL Lymph # (Auto) 0.5 L (0.6-2.4) K/uL [place] # (Auto) 0.3 (0.0-0.8) K/uL Eos # (Auto) 0.1 (0.0-0.7) K/uL Baso # (Auto) 0.0 (0.0-0.1) K/uL Nucleated RBC % 0.0 /100WBC Nucleated RBCs # 0 K/uL Lactate 1.3 (0.20-2.00) mmol/L Sodium 140 (136-145) mmol/L Potassium 3.6 (3.5-5.1) mmol/L Chloride 106 (98-107) mmol/L Carbon Dioxide 25.7 (21.0-32.0) mmol/L BUN 6 L (7.0-18.0) mg/dL Creatinine 0.8 (0.6-1.0) mg/dL Est Cr Clr Drug Dosing 98.16 mL/min Estimated GFR (MDRD) > 60.0 ml/min Glucose 75 (74-106) mg/dL Calcium 7.7 L (8.5-10.1) mg/dL Magnesium 1.8 (1.8-2.4) mg/dL Total Bilirubin 1.0 (0.2-1.0) mg/dL AST 49 H (15-37) IU/L ALT 53 (14-63) IU/L Alkaline Phosphatase 62 (46-116) U/L Total Protein 5.8 L (6.4-8.2) g/dL Albumin 2.8 L (3.4-5.0) g/dL Globulin 3.0 (2.6-4.0) g/dL Albumin/Globulin Ratio 0.9 (0.9-1.6) Urine Color Urine Appearance Urine pH (5.0-8.0) Ur Specific [place] (1.001-1.035) Urine Protein (NEGATIVE) mg/dL Urine Glucose (UA) (NEGATIVE) mg/dL Urine Ketones (NEGATIVE) mg/dL Urine Occult Blood (NEGATIVE) Urine Nitrite (NEGATIVE) Urine Bilirubin (NEGATIVE) Urine Ictotest Urine Urobilinogen (<2.0) EU/dL Ur Leukocyte Esterase (NEGATIVE) Urine RBC (0-2/HPF) Urine WBC (0-5/HPF) Ur Epithelial Cells (NONE-FEW) Urine Bacteria (NEGATIVE) Urine Mucus (NONE-MOD) Urine HCG, Qual (NEGATIVE) KAYLYN Results - Last 24 hrs: Microbiology 11/09/19 14:34 Influenza Type A Antigen Screen - Final Nasopharyngeal Swab NEGATIVE INFLUENZA A VIRUS AG REFERENCE RANGE: NEGATIVE Influenza Type B Antigen Screen - Final NEGATIVE INFLUENZA B VIRUS AG REFERENCE RANGE: NEGATIVE Med Orders - Current: Current Medications Acetaminophen (Tylenol) 650 mg PO Q4H PRN PRN Reason: Pain (Mild 1-3)/fever Apixaban (Eliquis) 5 mg PO BID [facility] Last Admin: 11/10/19 08:34 Dose: 5 mg Ceftriaxone Sodium/Dextrose 2 (gm/ Premix) 50 mls @ 100 mls/hr IV Q24H [facility] Pantoprazole Sodium 40 mg/ (Sodium Chloride) 10 mls @ 300 mls/hr IV DAILY [facility] Last Admin: 11/10/19 08:35 Dose: 300 mls/hr Ibuprofen (Motrin) 600 mg PO Q6H PRN PRN Reason: Pain (mild 1-3) Lorazepam (Ativan) 0 mg IVPUSH Q4H PRN; Protocol PRN Reason: Withdrawal Symptoms Morphine Sulfate (Morphine) 1 mg IVPUSH Q4H PRN PRN Reason: Pain Ondansetron HCl (Zofran Odt) 4 mg PO Q4H PRN PRN Reason: nausea, able to take PO Ondansetron HCl (Zofran) 4 mg IVPUSH Q4H PRN PRN Reason: Nausea Temazepam (Restoril) 15 mg PO BEDTIME PRN PRN Reason: Insomnia Discontinued Medications Enoxaparin Sodium (Lovenox) 40 mg SUBCUT Q24H [facility] Last Admin: 11/09/19 17:24 Dose: 40 mg Sodium Chloride (Normal Saline) 1,000 mls @ 999 mls/hr IV STAT ONE Stop: 11/09/19 13:49 Last Admin: 11/09/19 12:54 Dose: 999 mls/hr Sodium Chloride (Normal Saline) 1,000 mls @ 999 mls/hr IV STAT ONE Stop: 11/09/19 15:31 Last Admin: 11/09/19 14:57 Dose: 999 mls/hr Ceftriaxone Sodium/Dextrose 1 (gm/ Premix) 50 mls @ 100 mls/hr IV ONETIME ONE Stop: 11/09/19 15:14 Last Admin: 11/09/19 14:57 Dose: 100 mls/hr Sodium Chloride (Normal Saline) 1,000 mls @ 999 mls/hr IV STAT ONE Stop: 11/09/19 15:53 Last Admin: 11/09/19 15:11 Dose: Not Given Sodium Chloride (Normal Saline) 1,000 mls @ 200 mls/hr IV STAT MARYAN Stop: 11/10/19 20:29 Last Admin: 11/09/19 22:22 Dose: 200 mls/hr Ceftriaxone Sodium/Dextrose 1 (gm/ Premix) 50 mls @ 100 mls/hr IV ONETIME ONE Stop: 11/09/19 16:01 Last Admin: 11/09/19 18:22 Dose: Not Given Pantoprazole Sodium 40 mg/ (Sodium Chloride) 10 mls @ 300 mls/hr IV NOW ONE Stop: 11/09/19 15:34 Last Admin: 11/09/19 17:22 Dose: 300 mls/hr Magnesium Sulfate 2 gm/ Premix 50 mls @ 25 mls/hr IV ONETIME ONE Stop: 11/09/19 18:45 Last Admin: 11/09/19 17:26 Dose: 25 mls/hr Ceftriaxone Sodium/Dextrose 1 (gm/ Premix) 50 mls @ 100 mls/hr IV ONETIME ONE Stop: 11/09/19 18:44 Last Admin: 11/09/19 19:26 Dose: 100 mls/hr Sodium Chloride (Normal Saline) 1,000 mls @ 125 mls/hr IV ASDIRECTED MARYAN Last Admin: 11/10/19 03:34 Dose: 125 mls/hr Iopamidol (Isovue Multipack-370 (76%)) 100 ml IVPUSH ONETIME ONE Stop: 11/09/19 16:55 Last Admin: 11/09/19 16:55 Dose: 100 ml Ketorolac Tromethamine (Toradol) 30 mg IV Q6H PRN PRN Reason: Pain (moderate 4-6) Ondansetron HCl (Zofran) 4 mg IVPUSH ONETIME ONE Stop: 11/09/19 13:16 Last Admin: 11/09/19 13:25 Dose: 4 mg
[2019-11-10] MEDS ORDERED: cefTRIAXone 2 GM in Premix Bag 1 BAG IV SCH (14:00)
== END 2019-11-10 12:55 | disposition home or self-care (01) ==
LOC: MW.ED 12:31 → MW.MS 15:09
PROVIDERS: ADMIT Student in an Organized Health Care Education/Training Program; ATTEND Student in an Organized Health Care Education/Training Program
DX: A41.9 Sepsis, unspecified organism (principal); N39.0 Urinary tract infection, site not specified; E86.0 Dehydration; R94.5 Abnormal results of liver function studies; R74.0 Nonspecific elevation of levels of transaminase and lactic acid dehydrogenase [LDH]; F32.9 Major depressive disorder, single episode, unspecified; Z86.718 Personal history of other venous thrombosis and embolism; Z79.01 Long term (current) use of anticoagulants
CPT/HCPCS: 36415; 71045; 74177; 80053; 81001; 81025; 83605; 83735; 85025; 87040; 87086; 87088; 87186; 87804; 93005; 96361; 96365; 96375; 99285; A9270; C9113; J0696; J1650; J2405; J3475; J7030; J7050; Q9967

== ENCOUNTER 2020-01-08 09:30 | Emergency (ER) | payer BC ==
[2020-01-08] MEDS: Acetaminophen 325 MG Tab PO ONE (09:55)
--- NOTE | 2020-01-08 10:00 | EDM.PDOC ---
ED HPI GENERAL MEDICAL PROBLEM - General Chief Complaint: Lower Extremity Injury/Pain Stated Complaint: INJURED LT FOOT Time Seen by Provider: 01/08/20 09:58 Source of Information: Reports: Patient History Limitations: Reports: No Limitations - History of Present Illness INITIAL COMMENTS - FREE TEXT/NARRATIVE: Patient is 49-year-old female with a complaint of left foot pain. Patient states she had a mechanical fall down several stairs on Thursday. Patient denies any other bodily trauma. Patient reports constant left foot pain without radiation. Pain is mostly in the left lateral foot. Patient states pain is slightly relieved with Motrin and Tylenol. Patient reports problems with numbness and tingling in her abdomen and lower extremities bilaterally which is a chronic problem for which she has an MRI tomorrow. She denies any new numbness or tingling of the foot. Denies head injuries Pmhx: Per chart Pshx: None Family Hx: noncontributory Smoking history? no Etoh use? none Drug use? none Comprehensive review of systems performed and otherwise negative I have reviewed the triage vital signs Const: Well nourished, well developed, appears stated age Eyes: PERRL, no conjunctival injection HENT: NCAT, Neck supple without meningismus CV: RRR, Warm, well-perfused extremities RESP: CTAB, Unlabored respiratory effort GI: soft, non-tender, non-distended, no masses MSK: Tender about tenderness palpation of the left fifth metatarsal. Left lateral malleolus is tender to palpation. Neuro and vascularly intact. No gross deformities appreciated Skin: Warm, dry. No rashes Neuro: Alert, database admin II-XII grossly intact. Sensation and motor function of extremities grossly intact. Psych: Appropriate mood and affect Assessment and plan: Patient's 49-year-old female presenting with left foot pain status post injury. Patient has a fracture of the fifth metatarsal base. The fracture is nondisplaced not requiring any urgent intervention. Patient was placed in a boot and made nonweightbearing with assistance of crutches. Patient instructed to follow-up as an outpatient with either podiatry or orthopedics for possible surgical correction. All questions were addressed and answered. Patient agrees with plan. left foot Pain Score (Numeric/FACES): 10 - Related Data Allergies Allergy/AdvReac Type Severity Reaction Status Date / Time No Known Allergies Allergy Verified 01/08/20 09:39 Home Meds: Home Meds Apixaban [Eliquis] 5 mg PO BID 11/09/19 [History] Ondansetron [Zofran ODT] 1 tab PO Q6HR PRN 11/09/19 [History] buPROPion HCl [Wellbutrin Xl] 300 mg PO DAILY 11/09/19 [History] Past Medical History - Past Health History Medical/Surgical History: Denies Medical/Surgical History HEENT History: Reports: None Cardiovascular History: Reports: Blood Clots/VTE/DVT Respiratory History: Reports: None Gastrointestinal History: Reports: None Genitourinary History: Reports: None GROUP TESTER History: Reports: Musculoskeletal History: Reports: Back Pain, Chronic Neurological History: Reports: None Psychiatric History: Reports: Anxiety, Other (See Below) Other Psychiatric History: anxiety after of brother Endocrine/Metabolic History: Reports: None Hematologic History: Reports: None Immunologic History: Reports: None Oncologic (Cancer) History: Reports: None Dermatologic History: Reports: None - Infectious Disease History Infectious Disease History: Reports: None - Past Surgical History Head Surgeries/Procedures: Reports: None HEENT Surgical History: Reports: Tonsillectomy Cardiovascular Surgical History: Reports: None Respiratory Surgical History: Reports: None GI Surgical History: Reports: Appendectomy Female Surgical History: Reports: Tubal Ligation Endocrine Surgical History: Reports: None Neurological Surgical History: Reports: None Musculoskeletal Surgical History: Reports: Other (See Below) Other Musculoskeletal Surgeries/Procedures:: had back surgery with rods/pins Oncologic Surgical History: Reports: None Dermatological Surgical History: Reports: None Social & Family History - Family History Family Medical History: Noncontributory Oncologic: Reports: Brain - Tobacco Use Smoking Status *Q: Never Smoker Second Hand Smoke Exposure: No - Caffeine Use Caffeine Use: Reports: Soda, Tea - Recreational Drug Use Recreational Drug Use: No Review of Systems - Review of Systems Review Of Systems: See Below ED EXAM, GENERAL - Physical Exam Exam: See Below Course - Vital Signs Last Recorded V/S: Last Vital Signs Temp 36.0 C L 01/08/20 09:40 Pulse 96 01/08/20 10:25 Resp 18 01/08/20 10:25 BP 102/72 01/08/20 10:25 Pulse Ox 98 01/08/20 10:25 - Orders/Labs/Meds Orders: Active Orders 24 hr Category Date Time Status DME for Discharge [COMM] Stat Oth 01/08/20 10:28 Ordered Meds: Medications Discontinued Medications Generic Name Dose Route Start Last Admin Trade Name Maxx PRN Reason Stop Dose Admin Acetaminophen 650 mg 01/08/20 09:46 01/08/20 09:55 Tylenol PO 01/08/20 09:47 650 mg NOW ONE Administration Departure - Departure Time of Disposition: 10:13 Disposition: Home, Self-Care 01 Clinical Impression: Law fracture, Nondisplaced fracture of fifth left metatarsal bone - Discharge Information Instructions: Metatarsal Fracture Referrals: Janak Bales MD [Primary Care Provider] - Forms: ED Department Discharge Additional Instructions: The following information is given to patients seen in the emergency department who are being discharged to home. This information is to outline your options for follow-up care. We provide all patients seen in our emergency department with a follow-up referral. The need for follow-up, as well as the timing and circumstances, are variable depending upon the specifics of your emergency department visit. If you don't have a primary care physician on staff, we will provide you with a referral. We always advise you to contact your personal physician following an emergency department visit to inform them of the circumstance of the visit and for follow-up with them and/or the need for any referrals to a consulting specialist. The emergency department will also refer you to a specialist when appropriate. This referral assures that you have the opportunity for follow-up care with a specialist. All of these measure are taken in an effort to provide you with optimal care, which includes your follow-up. Under all circumstances we always encourage you to contact your private physician who remains a resource for coordinating your care. When calling for follow-up care, please make the office aware that this follow-up is from your recent emergency room visit. If for any reason you are refused follow-up, please contact the [facility] Emergency Department at and asked to speak to the emergency department charge nurse. Avoid weightbearing on the left foot until evaluated by specialist. Use crutches to assist with ambulation. Sepsis Event Note - Evaluation Sepsis Screening Result: No Definite Risk - Focused Exam Vital Signs: Vital Signs Temp Pulse Resp BP Pulse Ox 01/08/20 10:25 96 18 102/72 98 04/12/20 09:40 36.0 C L 108 H 18 104/80 98 Date Exam was Performed: 01/08/20 Time Exam was Performed: 10:44 - My Orders Last 24 Hours: My Active Orders 01/08/20 10:28 DME for Discharge [COMM] Stat - Assessment/Plan Last 24 Hours: My Active Orders 01/08/20 10:28 DME for Discharge [COMM] Stat
--- NOTE | 2020-01-08 10:08 | CR ---
Left ankle: 2 views of the left ankle were obtained. Comparison: No prior ankle imaging is available. Fracture is identified within the base of the fifth metatarsal. Ankle mortise is symmetric. Plantar spur is noted. No additional fracture or other bony abnormality is identified. Impression: 1. Nondisplaced fracture involving the base of the fifth metatarsal. 2. Plantar spur. 3. No additional abnormality is identified. Diagnostic code #3 Study was dictated in MDT
--- NOTE | 2020-01-08 10:13 | CR ---
Left foot: 3 views of the left foot were obtained. Comparison: Study correlated with ankle exam performed on the same day, no previous left foot study is available. Plantar spur is noted. Fracture is identified within the base of the fifth metatarsal. Alignment remains close to anatomic. No additional fracture or other bony abnormality is appreciated. Impression: 1. Plantar spur. 2. Nondisplaced fracture within the base of the fifth metatarsal. Diagnostic code #3 Study was dictated in MDT
[2020-01-08 10:41] VITALS: BP 102/72; PULSE 96
== END 2020-01-08 10:30 | disposition home or self-care (01) ==
LOC: MW.ED 09:30
DX: S92.355A Nondisplaced fracture of fifth metatarsal bone, left foot, initial encounter for closed fracture (principal); F41.9 Anxiety disorder, unspecified; Z86.718 Personal history of other venous thrombosis and embolism; Z79.01 Long term (current) use of anticoagulants; W10.9XXA Fall (on) (from) unspecified stairs and steps, initial encounter
CPT/HCPCS: 73600; 73630; 99283; A9270

== ENCOUNTER 2020-03-04 13:09 | Inpatient (IN) | payer BC ==
[2020-03-04] MEDS ORDERED: Sodium Chloride 0.9% 2.5 ML Syringe FLUSH PRN (13:25)
[2020-03-04] MEDS ORDERED: Sodium Chloride 0.9% 10 ML SDV IV PRN (13:25)
[2020-03-04] MEDS ORDERED: Sodium Chloride 0.9% 10 ML Syringe FLUSH PRN (13:25)
[2020-03-04] MEDS ORDERED: fentaNYL 50 MCG/ML SDV IVPUSH ONE ×2 (13:31→16:01)
--- NOTE | 2020-03-04 13:35 | EDM.PDOC ---
ED HPI GENERAL MEDICAL PROBLEM - General Chief Complaint: Abdominal Pain Stated Complaint: UPPER ABDOMINAL PAIN Time Seen by Provider: 03/04/20 13:15 Source of Information: Reports: Patient History Limitations: Reports: No Limitations - History of Present Illness INITIAL COMMENTS - FREE TEXT/NARRATIVE: 49-year-old female with past medical history of alcohol dependence and withdrawal, depression, DVT (partially completed course of anticoagulation in 2019) presenting with abdominal pain. She reports an 11-hour history of epigastric abdominal pain. It woke her up from sleep, sudden onset. Described as "sharp", radiating to the back. Rated as 10 out of 10. Nothing makes it better or worse. No history of prior pain. No self treatment prior to arrival. No extremity pain, swelling, SOB, or chest discomfort. No other complaints. Upper Abdomen Pain Score (Numeric/FACES): 8 - Related Data Allergies Allergy/AdvReac Type Severity Reaction Status Date / Time No Known Allergies Allergy Verified 03/04/20 13:25 Home Meds: Home Meds . [No Known Home Meds] 03/04/20 [History] Past Medical History - Past Health History Medical/Surgical History: Denies Medical/Surgical History HEENT History: Reports: None Cardiovascular History: Reports: Blood Clots/VTE/DVT Respiratory History: Reports: None Gastrointestinal History: Reports: None Genitourinary History: Reports: None [employer] History: Reports: Musculoskeletal History: Reports: Back Pain, Chronic Neurological History: Reports: None Psychiatric History: Reports: Anxiety, Other (See Below) Other Psychiatric History: anxiety after of brother Endocrine/Metabolic History: Reports: None Hematologic History: Reports: None Immunologic History: Reports: None Oncologic (Cancer) History: Reports: None Dermatologic History: Reports: None - Infectious Disease History Infectious Disease History: Reports: None - Past Surgical History Head Surgeries/Procedures: Reports: None HEENT Surgical History: Reports: Tonsillectomy Cardiovascular Surgical History: Reports: None Respiratory Surgical History: Reports: None GI Surgical History: Reports: Appendectomy Female Surgical History: Reports: Tubal Ligation Endocrine Surgical History: Reports: None Neurological Surgical History: Reports: None Musculoskeletal Surgical History: Reports: Other (See Below) Other Musculoskeletal Surgeries/Procedures:: had back surgery with rods/pins Oncologic Surgical History: Reports: None Dermatological Surgical History: Reports: None Social & Family History - Family History Family Medical History: Noncontributory Oncologic: Reports: Brain - Tobacco Use Smoking Status *Q: Never Smoker Second Hand Smoke Exposure: No - Caffeine Use Caffeine Use: Reports: None - Alcohol Use Days Per Week of Alcohol Use: 1 Number of Drinks Per Day: 2 Total Drinks Per Week: 2 - Recreational Drug Use Recreational Drug Use: No ED ROS GENERAL - Review of Systems Review Of Systems: See Below Constitutional: Denies: Fever, Chills HEENT: Reports: No Symptoms Respiratory: Denies: Shortness of Breath Cardiovascular: Denies: Chest Pain, Edema GI/Abdominal: Reports: Abdominal Pain. Denies: Black Stool, Bloody Stool, Diarrhea, Distension, Hematemesis, Hematochezia, Melena, Nausea, Vomiting : Denies: Discharge, Dysuria, Flank Pain, Hematuria, Urgency Musculoskeletal: Denies: Neck Pain Skin: Denies: Pallor Neurological: Denies: Headache Psychiatric: Reports: No Symptoms Hematologic/Lymphatic: Reports: No Symptoms Immunologic: Reports: No Symptoms ED EXAM, GI/ABD - Physical Exam Exam: See Below Text/Narrative:: Vital signs reviewed. Nursing notes reviewed. Constitutional: Awake, alert, non-distressed. Head: Normocephalic, atraumatic. Eyes: EOMI, conjunctiva normal, no discharge, no scleral icterus. Ears, Nose, Throat: External ears and nose normal, moist oral mucosa. Cardiovascular: 2+ radial pulse, capillary refill less than 2 seconds. Pulmonary: normal work of breathing, no accessory muscle use. Abdomen/GI: Soft, moderate tenderness in the epigastrium, nondistended, no guarding or rigidity, no masses. Musculoskeletal: No deformities. Integumentary: Appropriate color for ethnicity, warm, dry, no pallor or jaundice , no rash. Neurologic: Alert, answering questions appropriately, normal speech, no facial droop, moving all extremities well. Psychiatric: Appropriate mood and affect, normal thought process. EKG INTERPRETATION EKG Interpretation Comments: 12-Lead ECG Interpretation Acquired: 1:31 PM Rhythm: Sinus rhythm Rate: 74 bpm [place]: Normal Intervals: Normal Ectopy: None Ischemic Changes: None apparent RV Strain: No obvious RV strain pattern. ST Segments/T-Waves: No notable changes Interpretation: Unremarkable Course - Vital Signs Text/Narrative:: 49-year-old female presenting with epigastric abdominal pain. Patient [hemodynamically stable, afebrile], well-appearing, looks nontoxic. Differential diagnosis includes but is not limited to: pancreatitis, gastritis, GERD, peptic ulcer disease, AAA, acute coronary syndrome, acute hepatitis, cholecystitis, biliary colic, pyelonephritis, nonspecific abdominal pain, and many others CBC shows a normocytic anemia, normal white blood cell count. Chemistry panel shows moderate hypokalemia, hypochloremia, normal renal function. Troponin is negative. Lipase is normal, test is negative. LFTs are deranged, bilirubin is elevated at 2.4, AST 186, ALT 68. Hypokalemia was addressed with IV magnesium sulfate and enteral potassium replacement. CT abdomen pelvis showed mild fatty infiltration of the liver, the appendix was not visualized. Otherwise no acute findings were noted. There was some concern for acute alcoholic hepatitis, however, the patient states she is only had 1 alcoholic beverage in the past 6 to 7 days. No urinary symptoms. Ultrasound of the abdomen demonstrated a thickened gallbladder wall with gallstones, a positive sonographic Brown sign. The CBD was measured within normal limits. Given her abnormal LFTs with ongoing pain and concerning ultrasound, there is some concern for early cholecystitis or a common bile duct stone. I did contact the hospitalist Dr. Rivera for admission, she agrees to admit. IV Zosyn was ordered. I also consulted our general surgeon Dr. Waldrop who evaluated the patient in the emergency department. She is concerned for cholecystitis or CBD stone as well and requested that the patient be made n.p.o. , will plan for MRCP when available, likely tomorrow. Patient will be admitted to the hospitalist service in the interim. Last Recorded V/S: Last Vital Signs Temp 36.6 C 03/04/20 18:25 Pulse 80 03/04/20 18:25 Resp 14 03/04/20 18:25 BP 123/92 H 03/04/20 18:25 Pulse Ox 100 03/04/20 18:25 - Orders/Labs/Meds Orders: Active Orders 24 hr Category Date Time Status Cardiac Monitoring [RC] . DIRECTED Care 03/04/20 13:26 Active Sodium Chloride 0.9% [Normal Saline] Med 03/04/20 13:25 Active 10 ml IV ASDIRECTED PRN Sodium Chloride 0.9% [Saline Flush] Med 03/04/20 13:25 Active 10 ml FLUSH ASDIRECTED PRN Sodium Chloride 0.9% [Saline Flush] Med 03/04/20 13:25 Active 2.5 ml FLUSH ASDIRECTED PRN Peripheral IV Insertion Adult [OM.PC] Stat Oth 03/04/20 13:25 Ordered Medication Orders Albuterol/Ipratropium (Duoneb 3.0-0.5 Mg/3 Ml) 3 ml NEB Q4HRRT PRN PRN Reason: Shortness Of Breath/wheezing Enoxaparin Sodium (Lovenox) 40 mg SUBCUT Q24H MARYAN Hydromorphone HCl (Dilaudid) 0.5 mg IVPUSH Q2H PRN PRN Reason: Pain (severe 7-10) Lactated Ringer's (Ringers, Lactated) 1,000 mls @ 125 mls/hr IV ASDIRECTED MARYAN Last Admin: 03/04/20 17:47 Dose: 125 mls/hr Pantoprazole Sodium 40 mg/ (Sodium Chloride) 10 mls @ 300 mls/hr IV DAILY MARYAN Potassium Chloride 40 meq/ (Dextrose/Lactated Ringer's) 1,020 mls @ 100 mls/hr IV ONETIME ONE Stop: 03/05/20 03:11 Piperacillin Sod/Tazobactam (Sod 3.375 gm/ Sodium Chloride) 50 mls @ 100 mls/ hr IV Q6H MARYAN Ondansetron HCl (Zofran) 4 mg IVPUSH Q4H PRN PRN Reason: Nausea/Vomiting Sodium Chloride (Saline Flush) 10 ml FLUSH ASDIRECTED PRN PRN Reason: Keep Vein Open Sodium Chloride (Saline Flush) 2.5 ml FLUSH ASDIRECTED PRN PRN Reason: Keep Vein Open Sodium Chloride (Normal Saline) 10 ml IV ASDIRECTED PRN PRN Reason: IV Use Labs: Laboratory Tests 03/04/20 03/04/20 03/04/20 Range/Units 13:28 13:28 13:28 WBC 6.42 (4.0-11.0) K/uL RBC 3.86 L (4.30-5.90) M/uL Hgb 11.1 L (12.0-16.0) g/dL Hct 34.6 L (36.0-46.0) % MCV 89.6 (80.0-98.0) fL MCH 28.8 (27.0-32.0) pg MCHC 32.1 (31.0-37.0) g/dL RDW Std Deviation 56.9 (28.0-62.0) fl RDW Coeff of Michaela 18 H (11.0-15.0) % Plt Count 183 (150-400) K/uL MPV 9.80 (7.40-12.00) fL Neut % (Auto) 81.1 H (48.0-80.0) % Lymph % (Auto) 11.5 L (16.0-40.0) % Ellis % (Auto) 6.9 (0.0-15.0) % Eos % (Auto) 0.3 (0.0-7.0) % Baso % (Auto) 0.2 (0.0-1.5) % Neut # (Auto) 5.2 (1.4-5.7) K/uL Lymph # (Auto) 0.7 (0.6-2.4) K/uL Ellis # (Auto) 0.4 (0.0-0.8) K/uL Eos # (Auto) 0.0 (0.0-0.7) K/uL Baso # (Auto) 0.0 (0.0-0.1) K/uL Nucleated RBC % 0.0 /100WBC Nucleated RBCs # 0 K/uL Sodium 136 (136-145) mmol/L Potassium 2.8 L (3.5-5.1) mmol/L Chloride 97 L (98-107) mmol/L Carbon Dioxide 27.5 (21.0-32.0) mmol/L BUN 9 (7.0-18.0) mg/dL Creatinine 0.8 (0.6-1.0) mg/dL Est Cr Clr Drug Dosing 98.16 mL/min Estimated GFR (MDRD) > 60.0 ml/min Glucose 106 (74-106) mg/dL Calcium 8.4 L (8.5-10.1) mg/dL Total Bilirubin 2.4 H (0.2-1.0) mg/dL AST 186 H (15-37) IU/L ALT 68 H (14-63) IU/L Alkaline Phosphatase 103 (46-116) U/L Troponin I < 0.050 (0.000-0.056) ng/mL Total Protein 6.8 (6.4-8.2) g/dL Albumin 3.2 L (3.4-5.0) g/dL Globulin 3.6 (2.6-4.0) g/dL Albumin/Globulin Ratio 0.9 (0.9-1.6) Lipase 339 (73-393) U/L HCG, Qual NEGATIVE (NEG) Meds: Medications Generic Name Dose Route Start Last Admin Trade Name Freq PRN Reason Stop Dose Admin Albuterol/Ipratropium 3 ml 03/04/20 16:59 Duoneb 3.0-0.5 Mg/3 Ml NEB Q4HRRT PRN Shortness Of Breath/wheezing Enoxaparin Sodium 40 mg 03/05/20 09:00 Lovenox SUBCUT Q24H MARYAN Hydromorphone HCl 0.5 mg 03/04/20 16:52 Dilaudid IVPUSH Q2H PRN Pain (severe 7-10) Lactated Ringer's 1,000 mls @ 125 mls/hr 03/04/20 17:00 03/04/20 17:47 Ringers, Lactated IV 125 mls/hr ASDIRECTED MARYAN Administration Pantoprazole Sodium 40 mg/ 10 mls @ 300 mls/hr 03/05/20 09:00 Sodium Chloride IV DAILY MARYAN Potassium Chloride 40 meq/ 1,020 mls @ 100 mls/hr 03/04/20 17:21 Dextrose/Lactated Ringer's IV 03/05/20 03:11 ONETIME ONE Piperacillin Sod/Tazobactam 50 mls @ 100 mls/hr 03/05/20 00:00 Sod 3.375 gm/ Sodium Chloride IV Q6H MARYAN Ondansetron HCl 4 mg 03/04/20 16:52 Zofran IVPUSH Q4H PRN Nausea/Vomiting Sodium Chloride 10 ml 03/04/20 13:25 Saline Flush FLUSH ASDIRECTED PRN Keep Vein Open Sodium Chloride 2.5 ml 03/04/20 13:25 Saline Flush FLUSH ASDIRECTED PRN Keep Vein Open Sodium Chloride 10 ml 03/04/20 13:25 Normal Saline IV ASDIRECTED PRN IV Use Discontinued Medications Generic Name Dose Route Start Last Admin Trade Name Freq PRN Reason Stop Dose Admin Fentanyl 50 mcg 03/04/20 13:31 03/04/20 13:35 Fentanyl IVPUSH 03/04/20 13:32 50 mcg ONETIME ONE Administration Fentanyl 50 mcg 03/04/20 16:01 03/04/20 17:55 Fentanyl IVPUSH 03/04/20 16:02 50 mcg ONETIME ONE Administration Magnesium Sulfate 2 gm/ Premix 50 mls @ 50 mls/hr 03/04/20 14:48 03/04/20 14: 59 IV 03/04/20 15:47 50 mls/hr ONETIME ONE Administration Piperacillin Sod/Tazobactam 50 mls @ 100 mls/hr 03/04/20 16:25 03/04/20 17:47 Sod 3.375 gm/ Sodium Chloride IV 03/04/20 16:54 100 mls/hr ONETIME ONE Administration Piperacillin Sod/Tazobactam 50 mls @ 100 mls/hr 03/04/20 01:00 03/04/20 18:31 Sod 3.375 gm/ Sodium Chloride IV Not Given Q8H [facility] Potassium Chloride 40 meq/ 1,020 mls @ 100 mls/hr 03/04/20 17:15 Dextrose/Lactated Ringer's IV ASDIRECTED MARYAN Iopamidol 100 ml 03/04/20 14:38 03/04/20 14:38 Isovue Multipack-370 (76%) IVPUSH 03/04/20 14:39 100 ml ONETIME ONE Administration Potassium Chloride 60 meq 03/04/20 14:49 03/04/20 14:58 Potassium Chloride PO 03/04/20 14:50 60 meq ONETIME ONE Administration Departure - Departure Time of Disposition: 17:30 Disposition: Refer to Observation Condition: Good Clinical Impression: Acute cholecystitis - Discharge Information Sepsis Event Note - Evaluation Sepsis Screening Result: No Definite Risk - Focused Exam Vital Signs: Vital Signs Temp Pulse Resp BP Pulse Ox 03/04/20 15:30 78 17 150/99 H 98 03/04/20 14:40 74 17 145/98 H 98 03/04/20 13:22 36.4 C 77 18 141/93 H 100 Date Exam was Performed: 03/04/20 Time Exam was Performed: 18:34 - My Orders Last 24 Hours: My Active Orders 03/04/20 13:25 Sodium Chloride 0.9% [Normal Saline] 10 ml IV ASDIRECTED PRN Sodium Chloride 0.9% [Saline Flush] 10 ml FLUSH ASDIRECTED PRN Sodium Chloride 0.9% [Saline Flush] 2.5 ml FLUSH ASDIRECTED PRN Peripheral IV Insertion Adult [OM.PC] Stat 03/04/20 13:26 Cardiac Monitoring [RC] . DIRECTED - Assessment/Plan Last 24 Hours: My Active Orders 03/04/20 13:25 Sodium Chloride 0.9% [Normal Saline] 10 ml IV ASDIRECTED PRN Sodium Chloride 0.9% [Saline Flush] 10 ml FLUSH ASDIRECTED PRN Sodium Chloride 0.9% [Saline Flush] 2.5 ml FLUSH ASDIRECTED PRN Peripheral IV Insertion Adult [OM.PC] Stat 03/04/20 13:26 Cardiac Monitoring [RC] . DIRECTED
[2020-03-04 14:03] LABS: BLOOD UREA NITROGEN,BUN 9 mg/dL (7.0-18.0); CARBON DIOXIDE,CO2 27.5 mmol/L (21.0-32.0); CHLORIDE,CL 97 mmol/L (98-107); GLUCOSE RANDOM 106 mg/dL (74-106); LIPASE 339 U/L (73-393); SODIUM,NA 136 mmol/L (136-145)
[2020-03-04 14:07] LABS: POTASSIUM,K 2.8 mmol/L (3.5-5.1)
[2020-03-04] MEDS ORDERED: Iopamidol 755 MG/ML 500 ML Multipack Bottle IVPUSH ONE (14:38)
[2020-03-04] MEDS ORDERED: Magnesium Sulfate/Water 2 GM in Premix Bag 1 BAG IV ONE (14:48)
[2020-03-04] MEDS ORDERED: Potassium Chloride 10% 20 MEQ/15 ML Soln 30 ML UD Cup PO ONE (14:49)
--- NOTE | 2020-03-04 15:03 | CT ---
CT abdomen and pelvis Technique: Multiple axial sections were obtained from above the dome of the diaphragm inferiorly through the pubic symphysis. Intravenous contrast was utilized. Comparison: Prior CT abdomen and pelvis exam of 11/09/19. Findings: Visualized lung bases show nothing acute. Liver shows mild fatty infiltration. Spleen shows no focal abnormality. Gallbladder contains no calcified gallstones. Pancreas is within normal limits. Adrenal glands show no nodule. Kidneys show symmetric contrast enhancement without hydronephrosis or mass. Aorta shows no aneurysm. No retroperitoneal adenopathy or mesenteric abnormalities are seen. Small fat-containing umbilical hernia is noted. Appendix not visualized. No pelvic mass or adenopathy is seen. Minimal diverticulosis is noted within the sigmoid colon without diverticuli. Bone window settings were reviewed which shows surgical change at L5-S1. Mild scattered degenerative change noted within other portions of the visualized spine. No acute osseous abnormality is appreciated. Impression: 1. Findings believed to be incidental as noted above. 2. Nothing acute is identified on CT study of the abdomen and pelvis. Diagnostic code #2 This report was dictated in MDT
--- NOTE | 2020-03-04 16:10 | US ---
Abdominal ultrasound: Multiple real-time images of the abdomen were obtained. Comparison: Prior CT abdomen and pelvis exam performed earlier on the same day (2:35 PM). Findings: Spleen size is normal. Kidneys show no hydronephrosis or mass. Right kidney has a length of 10.3 cm and left kidney has a length of 10.6 cm. Aorta shows no aneurysm. Liver is slightly echogenic compatible with fatty infiltration. No focal abnormality is seen within the liver. Gallbladder shows a mild amount of sludge as well as gallstones. Minimal areas of gallbladder wall thickening are seen. No pericholecystic fluid is seen. No definite biliary duct dilatation is seen. Inferior vena cava is patent. Visualized portions of the pancreas shows no discrete abnormality. Impression: 1. Sludge and gallstones within the gallbladder. Gallbladder wall shows minimal areas of wall thickening. No pericholecystic fluid is seen. No biliary duct dilatation is seen. 2. Fatty infiltration within the liver. 3. No additional abnormality is appreciated. Diagnostic code #3 This report was dictated in MDT
[2020-03-04] MEDS ORDERED: Piperacillin/Tazobactam 3.375 GM in Sodium Chloride 0.9% 50 ML IV ONE (16:25)
[2020-03-04] MEDS ORDERED: Ondansetron 4 MG/2 ML SDV IVPUSH PRN (16:52)
[2020-03-04] MEDS ORDERED: Albuterol/Ipratropium 3.0-0.5 MG/3 ML Neb Soln NEB PRN (16:59)
[2020-03-04] MEDS ORDERED: Potassium Chloride 40 MEQ in Dextrose 5%-Lactated Ringers 1,000 ML IV SCH (17:15)
[2020-03-04] MEDS ORDERED: Potassium Chloride 40 MEQ in Dextrose 5%-Lactated Ringers 1,000 ML IV ONE (17:21)
[2020-03-04] MEDS: Lactated Ringers 1,000 ML IV SCH (17:47)
--- NOTE | 2020-03-04 17:55 | PCM.CONS ---
H&P History of Present Illness - General Date of Service: 03/04/20 Admit Problem/Dx: Admission Diagnosis/Problem Admission Diagnosis/Problem Cholecystitis Source of Information: Patient History Limitations: Reports: No Limitations - History of Present Illness Initial Comments - Free Text/Narative: Patient is a 49 year old female who presents with severe epigastric pain. She states that Thursday she was feeling malaise and lack of appetite. This slowly improved. Last evening she had spaghetti. This morning she was woken up with severe pain in her epigastric area. This did not improve with movement. She states that it felt like "gas pain". The pain radiates around and to her back. It continued and got more severe so she came to the ER. Her past medical history is significant for alcohol abuse, but states she has cut back significantly and hasnet drank in ~ 5 days. She has a history of withdrawl symptoms but has not had these lately. She has a history of a spontaneous DVT with no known etiology. She stopped her anticoagulation herself. She was hypertensive on vital signs. WBC was normal but there was a predominance of neutrophils. AST and ALT were mildly elevated. Her bilirubin was 2.4. CT abdomen pelvis was read as negative however the gallbladder appeared distended to me and I could see what I felt were small stones. US showed cholelithiasis with a normal sized CBD and no evidence of fluid or uniform wall thickening. Upper Abdomen Pain Score (Numeric/FACES): 8 - Related Data Allergies/Adverse Reactions: Allergies Allergy/AdvReac Type Severity Reaction Status Date / Time No Known Allergies Allergy Verified 03/04/20 13:25 Home Medications: Home Meds . 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 CATH History: Reports: Musculoskeletal History: Reports: Back Pain, Chronic Neurological History: Reports: None Psychiatric History: Reports: Anxiety, Other (See Below) Other Psychiatric History: anxiety after of brother Endocrine/Metabolic History: Reports: None Hematologic History: Reports: None Immunologic History: Reports: None Oncologic (Cancer) History: Reports: None Dermatologic History: Reports: None - Infectious Disease History Infectious Disease History: Reports: None - Past Surgical History Head Surgeries/Procedures: Reports: None HEENT Surgical History: Reports: Tonsillectomy Cardiovascular Surgical History: Reports: None Respiratory Surgical History: Reports: None GI Surgical History: Reports: Appendectomy Female Surgical History: Reports: Tubal Ligation Endocrine Surgical History: Reports: None Neurological Surgical History: Reports: None Musculoskeletal Surgical History: Reports: Other (See Below) Other Musculoskeletal Surgeries/Procedures:: had back surgery with rods/pins Oncologic Surgical History: Reports: None Dermatological Surgical History: Reports: None Social & Family History - Family History Family Medical History: Noncontributory Oncologic: Reports: Brain - Tobacco Use Smoking Status *Q: Never Smoker Second Hand Smoke Exposure: No - Caffeine Use Caffeine Use: Reports: None - Alcohol Use Days Per Week of Alcohol Use: 1 Number of Drinks Per Day: 2 Total Drinks Per Week: 2 - Recreational Drug Use Recreational Drug Use: No H&P Review of Systems - Review of Systems: Review Of Systems: Comprehensive ROS is negative, except as noted in HPI. Exam - Exam Exam: See Below - Vital Signs Vital Signs: Last Vital Signs Temp 36.4 C 03/04/20 13:22 Pulse 78 03/04/20 15:30 Resp 17 03/04/20 15:30 BP 150/99 H 03/04/20 15:30 Pulse Ox 98 03/04/20 15:30 Weight: 96 kg - Exam General: Alert, Oriented, Mild Distress HEENT: Conjunctiva Clear, Mucosa Moist & [place], Posterior Pharynx Clear Neck: Trachea Midline Lungs: Clear to Auscultation, Normal Respiratory Effort Cardiovascular: Regular Rate, Regular Rhythm GI/Abdominal Exam: Soft, No Distention, Other (positive florentino's sign. I think I can feel her gallbladder in the RUQ. ) Rectal (Female) Exam: Normal Exam, Normal Rectal Tone Back Exam: Normal Inspection, Full Range of Motion Extremities: Normal Inspection Skin: Warm, Dry, Intact - Patient Data Lab Results Last 24 hrs: Laboratory Results - last 24 hr 03/04/20 03/04/20 03/04/20 Range/Units 13:28 13:28 13:28 WBC 6.42 (4.0-11.0) K/uL RBC 3.86 L (4.30-5.90) M/uL Hgb 11.1 L (12.0-16.0) g/dL Hct 34.6 L (36.0-46.0) % MCV 89.6 (80.0-98.0) fL MCH 28.8 (27.0-32.0) pg MCHC 32.1 (31.0-37.0) g/dL RDW Std Deviation 56.9 (28.0-62.0) fl RDW Coeff of Michaela 18 H (11.0-15.0) % Plt Count 183 (150-400) K/uL MPV 9.80 (7.40-12.00) fL Neut % (Auto) 81.1 H (48.0-80.0) % Lymph % (Auto) 11.5 L (16.0-40.0) % [place] % (Auto) 6.9 (0.0-15.0) % Eos % (Auto) 0.3 (0.0-7.0) % Baso % (Auto) 0.2 (0.0-1.5) % Neut # (Auto) 5.2 (1.4-5.7) K/uL Lymph # (Auto) 0.7 (0.6-2.4) K/uL [place] # (Auto) 0.4 (0.0-0.8) K/uL Eos # (Auto) 0.0 (0.0-0.7) K/uL Baso # (Auto) 0.0 (0.0-0.1) K/uL Nucleated RBC % 0.0 /100WBC Nucleated RBCs # 0 K/uL Sodium 136 (136-145) mmol/L Potassium 2.8 L (3.5-5.1) mmol/L Chloride 97 L (98-107) mmol/L Carbon Dioxide 27.5 (21.0-32.0) mmol/L BUN 9 (7.0-18.0) mg/dL Creatinine 0.8 (0.6-1.0) mg/dL Est Cr Clr Drug Dosing 98.16 mL/min Estimated GFR (MDRD) > 60.0 ml/min Glucose 106 (74-106) mg/dL Calcium 8.4 L (8.5-10.1) mg/dL Total Bilirubin 2.4 H (0.2-1.0) mg/dL AST 186 H (15-37) IU/L ALT 68 H (14-63) IU/L Alkaline Phosphatase 103 (46-116) U/L Troponin I < 0.050 (0.000-0.056) ng/mL Total Protein 6.8 (6.4-8.2) g/dL Albumin 3.2 L (3.4-5.0) g/dL Globulin 3.6 (2.6-4.0) g/dL Albumin/Globulin Ratio 0.9 (0.9-1.6) Lipase 339 (73-393) U/L HCG, Qual NEGATIVE (NEG) Result Diagrams: 03/04/20 13:28 03/04/20 13:28 Sepsis Event Note - Evaluation Sepsis Screening Result: No Definite Risk - Focused Exam Vital Signs: Vital Signs Temp Pulse Resp BP Pulse Ox 03/04/20 15:30 78 17 150/99 H 98 03/04/20 14:40 74 17 145/98 H 98 03/04/20 13:22 36.4 C 77 18 141/93 H 100 Date Exam was Performed: 03/04/20 Time Exam was Performed: 17:50 Consult PN Assessment/Plan Procedures: Procedures ASSAY OF FOLIC ACID SERUM (11/17/19) ASSAY OF LACTIC ACID (11/09/19) ASSAY OF LIPASE (08/11/18) ASSAY OF MAGNESIUM (11/09/19) ASSAY OF TROPONIN QUANT (04/18/15) ASSAY THYROID STIM HORMONE (11/17/19) BLOOD CULTURE FOR BACTERIA (11/09/19) CHEST X-RAY 1 VIEW FRONTAL (04/18/15) COMPLETE CBC W/AUTO DIFF WBC (11/09/19) COMPREHEN METABOLIC PANEL (11/09/19) CT ABD & PELV W/CONTRAST (11/09/19) ECHO EXAM OF ABDOMEN (08/18/18) ELECTROCARDIOGRAM TRACING (11/09/19) EMERGENCY DEPT VISIT (01/08/20) EMERGENCY DEPT VISIT (11/09/19) GLYCOSYLATED HEMOGLOBIN TEST (11/17/19) HYDRATE IV INFUSION ADD-ON (11/09/19) INFLUENZA ASSAY W/OPTIC (11/09/19) MICROBE SUSCEPTIBLE KAYLYN (11/09/19) MRI CHEST SPINE W/O & W/DYE (01/09/20) MRI NECK SPINE W/O & W/DYE (01/09/20) ROUTINE VENIPUNCTURE (11/17/19) THER/PROPH/DIAG INJ SC/IM (11/09/19) THER/PROPH/DIAG IV INF ADDON (11/09/19) THER/PROPH/DIAG IV INF INIT (11/09/19) TX/PRO/DX INJ NEW DRUG ADDON (11/09/19) TX/PRO/DX INJ SAME DRUG MYSQL DBA (11/09/19) TX/PROPH/DG ADDL SEQ IV INF (11/09/19) URINALYSIS AUTO W/SCOPE (11/09/19) URINE BACTERIA CULTURE (11/09/19) URINE CULTURE/COLONY COUNT (11/09/19) URINE TEST (11/09/19) VITAMIN B-12 (11/17/19) X-RAY EXAM CHEST 1 VIEW (11/09/19) X-RAY EXAM OF ANKLE (01/08/20) X-RAY EXAM OF FOOT (02/23/20) (1) Cholelithiasis SNOMED Code(s): 825467559 Code(s): K80.20 - CALCULUS OF GALLBLADDER W/O CHOLECYSTITIS W/O OBSTRUCTION Current Visit: Yes (2) Elevated liver function tests SNOMED Code(s): 518410530, 887238880 Code(s): R94.5 - ABNORMAL RESULTS OF LIVER FUNCTION STUDIES Current Visit: No Problem List Initiated/Reviewed/Updated: Yes Plan: The patient and I discussed the pathology of biliary disease. I am concerned that she may have choledocholithiasis or has passed a stone. However given her mild elevation of bili and LFTs, will admit with medicine for close monitoring. As I told her we will recheck her labs in the AM. If her LFTs and/or bilirubin is higher will need to be transfered to [place] for an ERCP. If they are the same or better, will get an MRCP. NPO except ice chips, but strict NPO at midnight for possible MRCP. IV dilaudid 0.5mg q 1hr as needed. Ok to give IV zosyn 3.375mg q 6hr. Fluid resucitation. Will continue to follow closely. Please call with questions.
--- NOTE | 2020-03-04 18:20 | PCM.HP.2 ---
H&P History of Present Illness - General Date of Service: 03/04/20 Admit Problem/Dx: Admission Diagnosis/Problem Admission Diagnosis/Problem Cholecystitis - History of Present Illness Initial Comments - Free Text/Narative: Patient is a 49 year old female with PMH of alcohol abuse, alcohol withdrawal, DVT not on any AC, who came in to the ER with c/o of severe epigastric pain. She states her symptoms started on Thursday with generalized weakness, and decreased appetite. States this morning she was woken up with severe pain in her epigastric areawhich was radiating to her back. Her pain didnt improve so she came in to ER. Patient states that she has cut back on her alcohol consumption significantly significantly and hasn't drank in ~ 5 days although she did have a bottle of beer 2 days back. In the ER patient was fiund to be hypertensive, Lab showed that WBC count was normal but there was a predominance of neutrophils. AST and ALT were mildly elevated. Her bilirubin was 2.4. CT abdomen pelvis was read as negative, US showed cholelithiasis with a normal sized CBD and no evidence of fluid or uniform wall thickening. Surgery evlauated the patient , felt that gallbladder appeared distended on CT scan with small stones. Patient was admitted for further care Upper Abdomen Pain Score (Numeric/FACES): 8 - Related Data Allergies/Adverse Reactions: Allergies Allergy/AdvReac Type Severity Reaction Status Date / Time No Known Allergies Allergy Verified 03/04/20 18:37 Home Medications: Home Meds . [No Known Home Meds] 03/04/20 [History] Past Medical History - Past Health History Medical/Surgical History: Denies Medical/Surgical History HEENT History: Reports: None Cardiovascular History: Reports: Blood Clots/VTE/DVT Respiratory History: Reports: None Gastrointestinal History: Reports: None Genitourinary History: Reports: None [employer] History: Reports: Musculoskeletal History: Reports: Back Pain, Chronic Neurological History: Reports: None Psychiatric History: Reports: Anxiety, Other (See Below) Other Psychiatric History: anxiety after of brother Endocrine/Metabolic History: Reports: None Hematologic History: Reports: None Immunologic History: Reports: None Oncologic (Cancer) History: Reports: None Dermatologic History: Reports: None - Infectious Disease History Infectious Disease History: Reports: None - Past Surgical History Head Surgeries/Procedures: Reports: None HEENT Surgical History: Reports: Tonsillectomy Cardiovascular Surgical History: Reports: None Respiratory Surgical History: Reports: None GI Surgical History: Reports: Appendectomy Female Surgical History: Reports: Tubal Ligation Endocrine Surgical History: Reports: None Neurological Surgical History: Reports: None Musculoskeletal Surgical History: Reports: Other (See Below) Other Musculoskeletal Surgeries/Procedures:: had back surgery with rods/pins Oncologic Surgical History: Reports: None Dermatological Surgical History: Reports: None Social & Family History - Family History Family Medical History: Noncontributory Oncologic: Reports: Brain - Tobacco Use Smoking Status *Q: Never Smoker Second Hand Smoke Exposure: No - Caffeine Use Caffeine Use: Reports: None - Alcohol Use Days Per Week of Alcohol Use: 1 Number of Drinks Per Day: 2 Total Drinks Per Week: 2 - Recreational Drug Use Recreational Drug Use: No H&P Review of Systems - Review of Systems: Review Of Systems: See Below General: Reports: Fever, Malaise. Denies: Chills, Diaphoresis HEENT: Reports: Dysphasia. Denies: Ear Pain Pulmonary: Reports: Shortness of Breath. Denies: Wheezing, Pleuritic Chest Pain Cardiovascular: Reports: Chest Pain. Denies: Palpitations, Dyspnea on Exertion Gastrointestinal: Reports: Abdominal Pain, Anorexia, Decreased Appetite, Nausea , Vomiting. Denies: Black Stool, Constipation, Diarrhea Genitourinary: Denies: Dysuria, Frequency, Burning Musculoskeletal: Denies: Neck Pain, Shoulder Pain, Arm Pain Exam - Exam Exam: See Below - Vital Signs Vital Signs: Last Vital Signs Temp 36.4 C 03/04/20 13:22 Pulse 78 03/04/20 15:30 Resp 17 03/04/20 15:30 BP 150/99 H 03/04/20 15:30 Pulse Ox 98 03/04/20 15:30 Weight: 96 kg - Exam General: Alert, Oriented Neck: Supple, Trachea Midline Lungs: Clear to Auscultation Cardiovascular: Regular Rate, Regular Rhythm GI/Abdominal Exam: Normal Bowel Sounds, Soft, Guarding, Tender. No: Hernia, Mass, Hepatomegaly, Splenomegaly Skin: Warm, Intact - Patient Data Lab Results Last 24 hrs: Laboratory Results - last 24 hr 03/04/20 03/04/20 03/04/20 Range/Units 13:28 13:28 13:28 WBC 6.42 (4.0-11.0) K/uL RBC 3.86 L (4.30-5.90) M/uL Hgb 11.1 L (12.0-16.0) g/dL Hct 34.6 L (36.0-46.0) % MCV 89.6 (80.0-98.0) fL MCH 28.8 (27.0-32.0) pg MCHC 32.1 (31.0-37.0) g/dL RDW Std Deviation 56.9 (28.0-62.0) fl RDW Coeff of Michaela 18 H (11.0-15.0) % Plt Count 183 (150-400) K/uL MPV 9.80 (7.40-12.00) fL Neut % (Auto) 81.1 H (48.0-80.0) % Lymph % (Auto) 11.5 L (16.0-40.0) % [place] % (Auto) 6.9 (0.0-15.0) % Eos % (Auto) 0.3 (0.0-7.0) % Baso % (Auto) 0.2 (0.0-1.5) % Neut # (Auto) 5.2 (1.4-5.7) K/uL Lymph # (Auto) 0.7 (0.6-2.4) K/uL [place] # (Auto) 0.4 (0.0-0.8) K/uL Eos # (Auto) 0.0 (0.0-0.7) K/uL Baso # (Auto) 0.0 (0.0-0.1) K/uL Nucleated RBC % 0.0 /100WBC Nucleated RBCs # 0 K/uL Sodium 136 (136-145) mmol/L Potassium 2.8 L (3.5-5.1) mmol/L Chloride 97 L (98-107) mmol/L Carbon Dioxide 27.5 (21.0-32.0) mmol/L BUN 9 (7.0-18.0) mg/dL Creatinine 0.8 (0.6-1.0) mg/dL Est Cr Clr Drug Dosing 98.16 mL/min Estimated GFR (MDRD) > 60.0 ml/min Glucose 106 (74-106) mg/dL Calcium 8.4 L (8.5-10.1) mg/dL Total Bilirubin 2.4 H (0.2-1.0) mg/dL AST 186 H (15-37) IU/L ALT 68 H (14-63) IU/L Alkaline Phosphatase 103 (46-116) U/L Troponin I < 0.050 (0.000-0.056) ng/mL Total Protein 6.8 (6.4-8.2) g/dL Albumin 3.2 L (3.4-5.0) g/dL Globulin 3.6 (2.6-4.0) g/dL Albumin/Globulin Ratio 0.9 (0.9-1.6) Lipase 339 (73-393) U/L HCG, Qual NEGATIVE (NEG) Result Diagrams: 03/04/20 13:28 03/04/20 13:28 Sepsis Event Note - Evaluation Sepsis Screening Result: No Definite Risk - Focused Exam Vital Signs: Vital Signs Temp Pulse Resp BP Pulse Ox 03/04/20 15:30 78 17 150/99 H 98 03/04/20 14:40 74 17 145/98 H 98 03/04/20 13:22 36.4 C 77 18 141/93 H 100 Date Exam was Performed: 03/04/20 Time Exam was Performed: 21:12 - Problem List (1) Alcohol abuse SNOMED Code(s): 05157485 ICD Code: F10.10 - ALCOHOL ABUSE, UNCOMPLICATED Status: Acute Current Visit: Yes (2) Acute cholecystitis SNOMED Code(s): 26128458 ICD Code: K81.0 - ACUTE CHOLECYSTITIS Status: Acute Current Visit: Yes (3) Cholelithiasis SNOMED Code(s): 173889803 ICD Code: K80.20 - CALCULUS OF GALLBLADDER W/O CHOLECYSTITIS W/O OBSTRUCTION Status: Acute Current Visit: Yes (4) Elevated liver function tests SNOMED Code(s): 417089878, 436456381 ICD Code: R94.5 - ABNORMAL RESULTS OF LIVER FUNCTION STUDIES Status: Acute Current Visit: No Orders Last 24hrs: Active Orders 24 hr Category Date Time Status Patient Status [ADT] Stat ADT 03/04/20 16:30 Active Ambulate [RC] ASDIRECTED Care 03/04/20 16:52 Active Antiembolic Devices [RC] PER UNIT ROUTINE Care 03/04/20 16:53 Active Cardiac Monitoring [RC] . DIRECTED Care 03/04/20 13:26 Active Notify Provider Consults [RC] ASDIRECTED Care 03/04/20 17:05 Active Oxygen Therapy [RC] PRN Care 03/04/20 16:52 Active RT Aerosol Therapy [RC] ASDIRECTED Care 03/04/20 17:05 Active VTE/DVT Education [RC] PER UNIT ROUTINE Care 03/04/20 16:52 Active Vital Signs [RC] Q4H Care 03/04/20 16:52 Active Consult to Physician [CONS] Routine Cons 03/04/20 16:59 Active Nothing per Oral After Midnight Diet [DIET] Diet 03/04/20 Dinner Active Abdomen wo Cont [MR] Routine Exams 03/05/20 08:00 Ordered CORONAVIRUS COVID-19 RAPID PCR [MOLEC] Stat Lab 03/04/20 17:56 Received Albuterol/Ipratropium [DuoNeb 3.0-0.5 MG/3 ML] Med 03/04/20 16:59 Active 3 ml NEB Q4HRRT PRN Enoxaparin [Lovenox] Med 03/05/20 09:00 Active 40 mg SUBCUT Q24H HYDROmorphone [Dilaudid] Med 03/04/20 16:52 Active 0.5 mg IVPUSH Q2H PRN Lactated Ringers [Ringers, Lactated] 1,000 ml Med 03/04/20 17:00 Active IV ASDIRECTED Ondansetron [Zofran] Med 03/04/20 16:52 Active 4 mg IVPUSH Q4H PRN Pantoprazole [ProTONIX IV] 40 mg Med 03/05/20 09:00 Active Sodium Chloride 0.9% [Normal Saline] 10 ml IV DAILY Piperacillin/Tazobactam [Piperacil-Tazobact] 3.375 gm Med 03/04/20 18:30 Ordered Sodium Chloride 0.9% [Normal Saline] 50 ml IV Q6H Piperacillin/Tazobactam [Piperacil-Tazobact] 3.375 gm Med 03/04/20 01:00 Stop Req Sodium Chloride 0.9% [Normal Saline] 50 ml IV Q8H Potassium Chloride 40 meq Med 03/04/20 17:21 Active Dextrose 5%-Lactated Ringers 1,000 ml IV ONETIME Sodium Chloride 0.9% [Normal Saline] Med 03/04/20 13:25 Active 10 ml IV ASDIRECTED PRN Sodium Chloride 0.9% [Saline Flush] Med 03/04/20 13:25 Active 10 ml FLUSH ASDIRECTED PRN Sodium Chloride 0.9% [Saline Flush] Med 03/04/20 13:25 Active 2.5 ml FLUSH ASDIRECTED PRN Peripheral IV Insertion Adult [OM.PC] Stat Oth 03/04/20 13:25 Ordered Sequential Compression Device [OM.PC] Per Unit Routine Oth 03/04/20 16:53 Ordered Resuscitation Status Routine Resus Stat 03/04/20 16:52 Ordered Medication Orders Albuterol/Ipratropium (Duoneb 3.0-0.5 Mg/3 Ml) 3 ml NEB Q4HRRT PRN PRN Reason: Shortness Of Breath/wheezing Enoxaparin Sodium (Lovenox) 40 mg SUBCUT Q24H MARYAN Hydromorphone HCl (Dilaudid) 0.5 mg IVPUSH Q2H PRN PRN Reason: Pain (severe 7-10) Lactated Ringer's (Ringers, Lactated) 1,000 mls @ 125 mls/hr IV ASDIRECTED MARYAN Last Admin: 03/04/20 17:47 Dose: 125 mls/hr Piperacillin Sod/Tazobactam (Sod 3.375 gm/ Sodium Chloride) 50 mls @ 100 mls/ hr IV Q8H [facility] Pantoprazole Sodium 40 mg/ (Sodium Chloride) 10 mls @ 300 mls/hr IV DAILY [facility] Potassium Chloride 40 meq/ (Dextrose/Lactated Ringer's) 1,020 mls @ 100 mls/hr IV ONETIME ONE Stop: 03/05/20 03:11 Ondansetron HCl (Zofran) 4 mg IVPUSH Q4H PRN PRN Reason: Nausea/Vomiting Sodium Chloride (Saline Flush) 10 ml FLUSH ASDIRECTED PRN PRN Reason: Keep Vein Open Sodium Chloride (Saline Flush) 2.5 ml FLUSH ASDIRECTED PRN PRN Reason: Keep Vein Open Sodium Chloride (Normal Saline) 10 ml IV ASDIRECTED PRN PRN Reason: IV Use Assessment/Plan Comment:: A/P: 49 y/o F admitted for Acute cholecystitis Admit to telemetry Start IV Zosyn Dilaudid for pain per orders IV fluids for hydration IV Zofran for N/V NPO with Ice chips for now Strict NPO past midnight for MRCP in AM Monitor and replete electrolytes as needed SCD for DVT ppx CIWA protocol for alcohol withdrawal Surgery consulted, recommendations appreciated
[2020-03-04] MEDS: Piperacillin/Tazobactam 3.375 GM in Sodium Chloride 0.9% 50 ML IV SCH ×2 (18:30→18:31)
[2020-03-04] MEDS: HYDROmorphone 2 MG/ML Syringe IVPUSH PRN ×2 (19:58→23:45)
[2020-03-04] MEDS ORDERED: LORazepam 2 MG/ML SDV IVPUSH PRN (21:08)
[2020-03-05] MEDS: Piperacillin/Tazobactam 3.375 GM in Sodium Chloride 0.9% 50 ML IV SCH ×5 (00:12→23:35)
[2020-03-05] MEDS: HYDROmorphone 2 MG/ML Syringe IVPUSH PRN (03:28)
[2020-03-05 06:35] LABS: BLOOD UREA NITROGEN,BUN 7 mg/dL (7.0-18.0); CARBON DIOXIDE,CO2 26.4 mmol/L (21.0-32.0); CHLORIDE,CL 103 mmol/L (98-107); GLUCOSE RANDOM 104 mg/dL (74-106); POTASSIUM,K 3.5 mmol/L (3.5-5.1); SODIUM,NA 138 mmol/L (136-145)
[2020-03-05] MEDS: HYDROmorphone 1 MG/ML Syringe IVPUSH PRN ×5 (08:45→23:50)
[2020-03-05] MEDS: Pantoprazole 40 MG in Sodium Chloride 0.9% 10 ML IV SCH (08:46)
--- NOTE | 2020-03-05 08:46 | MR ---
MRI abdomen Technique: Various sequences were obtained in axial venous contrast was not utilized. MRCP was also performed. Comparison: Prior CT abdomen and pelvis of 03/04/20 as well as prior abdominal ultrasound 03/04/20. Findings numerous gallstones are seen within the gallbladder. Common bile duct measures at the upper limits of normal at 6 mm. There are no definite filling to indicate definite CBD stone. Small amount of pericholecystic fluid is seen. Small abnormality is noted within the posterior right lobe of the liver measuring 6 mm. This is not seen on prior ultrasound or CT exam but is felt to be benign as no other abnormalities are seen within the liver. Kidneys show no hydronephrosis or mass. Spleen appears normal. Adrenal glands show no discrete nodule. Pancreas shows no discrete abnormality. Impression: 1. Gallstones within the gallbladder. Mild amount of pericholecystic fluid is seen. Please correlate if patient has any symptoms to suggest acute cholecystitis. 2. CBD at the upper limits of normal at 6 mm without definite choledocholithiasis. 3. Small abnormality within the right lobe of the liver believed benign as no other liver lesion is seen. Diagnostic code #3 This report was dictated in MDT
[2020-03-05] MEDS: Enoxaparin 40 MG/0.4 ML Syringe SUBCUT SCH (08:47)
--- NOTE | 2020-03-05 09:31 | PCM.PN ---
- General Info Date of Service: 03/05/20 Admission Dx/Problem (Free Text): Admission Diagnosis/Problem Admission Diagnosis/Problem Cholecystitis Subjective Update: feeling a little improved today, but still having abdominal pain. Passing flatus. No BM. No chest pain or SOB. No alcohol withdrawal symptoms. Functional Status: Reports: Pain Controlled, Ambulating, Urinating - Review of Systems HEENT: Reports: No Symptoms. Denies: Headaches, Visual Changes Pulmonary: Reports: No Symptoms. Denies: Shortness of Breath Cardiovascular: Reports: No Symptoms. Denies: Chest Pain Gastrointestinal: Reports: Abdominal Pain (epigastric and RUQ), Flatus. Denies : Diarrhea, Nausea, Vomiting Genitourinary: Reports: No Symptoms. Denies: Dysuria, Frequency, Burning Musculoskeletal: Reports: No Symptoms. Denies: Neck Pain Skin: Reports: No Symptoms Neurological: Reports: No Symptoms Psychiatric: Reports: No Symptoms - Patient Data Vitals - Most Recent: Last Vital Signs Temp 97.9 F 03/05/20 07:10 Pulse 77 03/05/20 07:10 Resp 17 03/05/20 07:10 BP 124/86 03/05/20 07:10 Pulse Ox 98 03/05/20 07:10 Weight - Most Recent: 96 kg I&O - Last 24 Hours: Intake & Output 03/04/20 03/05/20 03/05/20 22:59 06:59 14:59 Intake Total 10 Output Total 300 Balance -290 Lab Results Last 24 Hours: Laboratory Results - last 24 hr 03/04/20 03/04/20 03/04/20 Range/Units 13:28 13:28 13:28 WBC 6.42 (4.0-11.0) K/uL RBC 3.86 L (4.30-5.90) M/uL Hgb 11.1 L (12.0-16.0) g/dL Hct 34.6 L (36.0-46.0) % MCV 89.6 (80.0-98.0) fL MCH 28.8 (27.0-32.0) pg MCHC 32.1 (31.0-37.0) g/dL RDW Std Deviation 56.9 (28.0-62.0) fl RDW Coeff of Michaela 18 H (11.0-15.0) % Plt Count 183 (150-400) K/uL MPV 9.80 (7.40-12.00) fL Neut % (Auto) 81.1 H (48.0-80.0) % Lymph % (Auto) 11.5 L (16.0-40.0) % [place] % (Auto) 6.9 (0.0-15.0) % Eos % (Auto) 0.3 (0.0-7.0) % Baso % (Auto) 0.2 (0.0-1.5) % Neut # (Auto) 5.2 (1.4-5.7) K/uL Lymph # (Auto) 0.7 (0.6-2.4) K/uL [place] # (Auto) 0.4 (0.0-0.8) K/uL Eos # (Auto) 0.0 (0.0-0.7) K/uL Baso # (Auto) 0.0 (0.0-0.1) K/uL Nucleated RBC % 0.0 /100WBC Nucleated RBCs # 0 K/uL Sodium 136 (136-145) mmol/L Potassium 2.8 L (3.5-5.1) mmol/L Chloride 97 L (98-107) mmol/L Carbon Dioxide 27.5 (21.0-32.0) mmol/L BUN 9 (7.0-18.0) mg/dL Creatinine 0.8 (0.6-1.0) mg/dL Est Cr Clr Drug Dosing 98.16 mL/min Estimated GFR (MDRD) > 60.0 ml/min Glucose 106 (74-106) mg/dL Calcium 8.4 L (8.5-10.1) mg/dL Phosphorus (2.6-4.7) mg/dL Magnesium (1.8-2.4) mg/dL Total Bilirubin 2.4 H (0.2-1.0) mg/dL AST 186 H (15-37) IU/L ALT 68 H (14-63) IU/L Alkaline Phosphatase 103 (46-116) U/L Troponin I < 0.050 (0.000-0.056) ng/mL Total Protein 6.8 (6.4-8.2) g/dL Albumin 3.2 L (3.4-5.0) g/dL Globulin 3.6 (2.6-4.0) g/dL Albumin/Globulin Ratio 0.9 (0.9-1.6) Lipase 339 (73-393) U/L HCG, Qual NEGATIVE (NEG) SARS-CoV-2 RNA (RT-PCR) (NEGATIVE) 03/04/20 03/05/20 03/05/20 Range/Units 17:56 05:55 05:55 WBC 2.03 L (4.0-11.0) K/uL RBC 3.41 L (4.30-5.90) M/uL Hgb 9.7 L (12.0-16.0) g/dL Hct 31.0 L (36.0-46.0) % MCV 90.9 (80.0-98.0) fL MCH 28.4 (27.0-32.0) pg MCHC 31.3 (31.0-37.0) g/dL RDW Std Deviation 57.9 (28.0-62.0) fl RDW Coeff of Michaela 18 H (11.0-15.0) % Plt Count 140 L (150-400) K/uL MPV 10.00 (7.40-12.00) fL Neut % (Auto) 64.5 (48.0-80.0) % Lymph % (Auto) 23.6 (16.0-40.0) % [place] % (Auto) 9.9 (0.0-15.0) % Eos % (Auto) 1.5 (0.0-7.0) % Baso % (Auto) 0.5 (0.0-1.5) % Neut # (Auto) 1.3 L (1.4-5.7) K/uL Lymph # (Auto) 0.5 L (0.6-2.4) K/uL [place] # (Auto) 0.2 (0.0-0.8) K/uL Eos # (Auto) 0.0 (0.0-0.7) K/uL Baso # (Auto) 0.0 (0.0-0.1) K/uL Nucleated RBC % 0.0 /100WBC Nucleated RBCs # 0 K/uL Sodium 138 (136-145) mmol/L Potassium 3.5 (3.5-5.1) mmol/L Chloride 103 (98-107) mmol/L Carbon Dioxide 26.4 (21.0-32.0) mmol/L BUN 7 (7.0-18.0) mg/dL Creatinine 0.8 (0.6-1.0) mg/dL Est Cr Clr Drug Dosing 98.16 mL/min Estimated GFR (MDRD) > 60.0 ml/min Glucose 104 (74-106) mg/dL Calcium 8.0 L (8.5-10.1) mg/dL Phosphorus 2.9 (2.6-4.7) mg/dL Magnesium 2.0 (1.8-2.4) mg/dL Total Bilirubin 1.5 H (0.2-1.0) mg/dL AST 108 H (15-37) IU/L ALT 66 H (14-63) IU/L Alkaline Phosphatase 84 (46-116) U/L Troponin I (0.000-0.056) ng/mL Total Protein 5.5 L (6.4-8.2) g/dL Albumin 2.5 L (3.4-5.0) g/dL Globulin 3.0 (2.6-4.0) g/dL Albumin/Globulin Ratio 0.8 L (0.9-1.6) Lipase (73-393) U/L HCG, Qual (NEG) SARS-CoV-2 RNA (RT-PCR) NEGATIVE (NEGATIVE) Med Orders - Current: Current Medications Albuterol/Ipratropium (Duoneb 3.0-0.5 Mg/3 Ml) 3 ml NEB Q4HRRT PRN PRN Reason: Shortness Of Breath/wheezing Enoxaparin Sodium (Lovenox) 40 mg SUBCUT Q24H [facility] Last Admin: 03/05/20 08:47 Dose: 40 mg Hydromorphone HCl (Dilaudid) 0.5 mg IVPUSH Q2H PRN PRN Reason: Pain (severe 7-10) Last Admin: 03/05/20 08:45 Dose: 0.5 mg Lactated Ringer's (Ringers, Lactated) 1,000 mls @ 125 mls/hr IV ASDIRECTED [facility] Last Admin: 03/04/20 17:47 Dose: 125 mls/hr Pantoprazole Sodium 40 mg/ (Sodium Chloride) 10 mls @ 300 mls/hr IV DAILY [facility] Last Admin: 03/05/20 08:46 Dose: 300 mls/hr Piperacillin Sod/Tazobactam (Sod 3.375 gm/ Sodium Chloride) 50 mls @ 100 mls/ hr IV Q6H [facility] Last Admin: 03/05/20 06:30 Dose: 100 mls/hr Lorazepam (Ativan) 0 mg IVPUSH Q4H PRN; Protocol PRN Reason: Withdrawal Symptoms Ondansetron HCl (Zofran) 4 mg IVPUSH Q4H PRN PRN Reason: Nausea/Vomiting Sodium Chloride (Saline Flush) 10 ml FLUSH ASDIRECTED PRN PRN Reason: Keep Vein Open Sodium Chloride (Saline Flush) 2.5 ml FLUSH ASDIRECTED PRN PRN Reason: Keep Vein Open Sodium Chloride (Normal Saline) 10 ml IV ASDIRECTED PRN PRN Reason: IV Use Discontinued Medications Fentanyl (Fentanyl) 50 mcg IVPUSH ONETIME ONE Stop: 03/04/20 13:32 Last Admin: 03/04/20 13:35 Dose: 50 mcg Fentanyl (Fentanyl) 50 mcg IVPUSH ONETIME ONE Stop: 03/04/20 16:02 Last Admin: 03/04/20 17:55 Dose: 50 mcg Hydromorphone HCl (Dilaudid) 0.5 mg IVPUSH Q2H PRN PRN Reason: Pain (severe 7-10) Last Admin: 03/05/20 03:28 Dose: 0.5 mg Magnesium Sulfate 2 gm/ Premix 50 mls @ 50 mls/hr IV ONETIME ONE Stop: 03/04/20 15:47 Last Admin: 03/04/20 14:59 Dose: 50 mls/hr Piperacillin Sod/Tazobactam (Sod 3.375 gm/ Sodium Chloride) 50 mls @ 100 mls/ hr IV ONETIME ONE Stop: 03/04/20 16:54 Last Admin: 03/04/20 17:47 Dose: 100 mls/hr Piperacillin Sod/Tazobactam (Sod 3.375 gm/ Sodium Chloride) 50 mls @ 100 mls/ hr IV Q8H [facility] Last Admin: 03/04/20 18:31 Dose: Not Given Potassium Chloride 40 meq/ (Dextrose/Lactated Ringer's) 1,020 mls @ 100 mls/hr IV ASDIRECTED MARYAN Potassium Chloride 40 meq/ (Dextrose/Lactated Ringer's) 1,020 mls @ 100 mls/hr IV ONETIME ONE Stop: 03/05/20 03:11 Last Admin: 03/04/20 20:04 Dose: 100 mls/hr Iopamidol (Isovue Multipack-370 (76%)) 100 ml IVPUSH ONETIME ONE Stop: 03/04/20 14:39 Last Admin: 03/04/20 14:38 Dose: 100 ml Potassium Chloride (Potassium Chloride) 60 meq PO ONETIME ONE Stop: 03/04/20 14:50 Last Admin: 03/04/20 14:58 Dose: 60 meq - Exam General: Alert, Oriented, Cooperative, No Acute Distress Lungs: Clear to Auscultation, Normal Respiratory Effort Cardiovascular: Regular Rate, Regular Rhythm GI/Abdominal Exam: Normal Bowel Sounds, Soft, Tender (epigastric and RUQ) Extremities: Normal Inspection, Normal Range of Motion, Non-Tender, No Pedal Edema Neurological: No New Focal Deficit Psy/Mental Status: No: Withdrawal Symptoms Sepsis Event Note - Evaluation Sepsis Screening Result: No Definite Risk - Focused Exam Vital Signs: Vital Signs Temp Pulse Resp BP Pulse Ox 03/05/20 07:10 97.9 F 77 17 124/86 98 03/05/20 04:40 97.9 F 76 16 122/88 97 03/05/20 00:00 97.0 F 74 16 138/100 H 97 Date Exam was Performed: 03/05/20 Time Exam was Performed: 11:33 - Problem List & Annotations (1) Acute cholecystitis SNOMED Code(s): 41170219 Code(s): K81.0 - ACUTE CHOLECYSTITIS Status: Acute Current Visit: Yes (2) Cholelithiasis SNOMED Code(s): 048095690 Code(s): K80.20 - CALCULUS OF GALLBLADDER W/O CHOLECYSTITIS W/O OBSTRUCTION Status: Acute Current Visit: Yes (3) History of alcohol abuse SNOMED Code(s): 934918292 Code(s): F10.11 - ALCOHOL ABUSE, IN REMISSION Status: Chronic Current Visit: Yes - Problem List Review Problem List Initiated/Reviewed/Updated: Yes - Plan Plan:: This 49 year old admitted for acute cholecystitis 1. Acute cholecystitis - Consult Dr Waldrop, general surgery. - MRCP obtained this morning, continues to show acute cholecystitis no CBD stone. - Clear liquids today, NPO at midnight - Continue Zosyn - Dilaudid for pain per orders - IV fluids for hydration - IV Zofran for N/V 2. Alcohol abuse - No current withdrawal symptoms. - CIWAA protocol with Ativan PRN, has not needed this. VTE prophylaxis: Lovenox Dispo: Will change to inpatient today as patient will have surgery in the morning and will need greater than 2 midnights stay.
--- NOTE | 2020-03-05 14:34 | PCM.CONSN ---
- General Info Date of Service: 03/05/20 Functional Status: Reports: Pain Controlled, Tolerating Diet, Ambulating, Urinating - Review of Systems General: Reports: No Symptoms HEENT: Reports: No Symptoms Pulmonary: Reports: No Symptoms Cardiovascular: Reports: No Symptoms Gastrointestinal: Reports: No Symptoms Genitourinary: Reports: No Symptoms Musculoskeletal: Reports: No Symptoms - Patient Data Vitals - Most Recent: Last Vital Signs Temp 36.8 C 03/05/20 11:00 Pulse 76 03/05/20 11:00 Resp 16 03/05/20 11:00 BP 136/92 H 03/05/20 11:00 Pulse Ox 100 03/05/20 11:00 Weight - Most Recent: 96 kg I&O - Last 24 Hours: Intake & Output 03/04/20 03/05/20 03/05/20 22:59 06:59 14:59 Intake Total 10 Output Total 300 Balance -290 Lab Results Last 24 Hours: Laboratory Results - last 24 hr 03/04/20 03/05/20 03/05/20 Range/Units 17:56 05:55 05:55 WBC 2.03 L (4.0-11.0) K/uL RBC 3.41 L (4.30-5.90) M/uL Hgb 9.7 L (12.0-16.0) g/dL Hct 31.0 L (36.0-46.0) % MCV 90.9 (80.0-98.0) fL MCH 28.4 (27.0-32.0) pg MCHC 31.3 (31.0-37.0) g/dL RDW Std Deviation 57.9 (28.0-62.0) fl RDW Coeff of Michaela 18 H (11.0-15.0) % Plt Count 140 L (150-400) K/uL MPV 10.00 (7.40-12.00) fL Neut % (Auto) 64.5 (48.0-80.0) % Lymph % (Auto) 23.6 (16.0-40.0) % Ritchie % (Auto) 9.9 (0.0-15.0) % Eos % (Auto) 1.5 (0.0-7.0) % Baso % (Auto) 0.5 (0.0-1.5) % Neut # (Auto) 1.3 L (1.4-5.7) K/uL Lymph # (Auto) 0.5 L (0.6-2.4) K/uL Ritchie # (Auto) 0.2 (0.0-0.8) K/uL Eos # (Auto) 0.0 (0.0-0.7) K/uL Baso # (Auto) 0.0 (0.0-0.1) K/uL Nucleated RBC % 0.0 /100WBC Nucleated RBCs # 0 K/uL Sodium 138 (136-145) mmol/L Potassium 3.5 (3.5-5.1) mmol/L Chloride 103 (98-107) mmol/L Carbon Dioxide 26.4 (21.0-32.0) mmol/L BUN 7 (7.0-18.0) mg/dL Creatinine 0.8 (0.6-1.0) mg/dL Est Cr Clr Drug Dosing 98.16 mL/min Estimated GFR (MDRD) > 60.0 ml/min Glucose 104 (74-106) mg/dL Calcium 8.0 L (8.5-10.1) mg/dL Phosphorus 2.9 (2.6-4.7) mg/dL Magnesium 2.0 (1.8-2.4) mg/dL Total Bilirubin 1.5 H (0.2-1.0) mg/dL AST 108 H (15-37) IU/L ALT 66 H (14-63) IU/L Alkaline Phosphatase 84 (46-116) U/L Total Protein 5.5 L (6.4-8.2) g/dL Albumin 2.5 L (3.4-5.0) g/dL Globulin 3.0 (2.6-4.0) g/dL Albumin/Globulin Ratio 0.8 L (0.9-1.6) SARS-CoV-2 RNA (RT-PCR) NEGATIVE (NEGATIVE) Med Orders - Current: Current Medications Albuterol/Ipratropium (Duoneb 3.0-0.5 Mg/3 Ml) 3 ml NEB Q4HRRT PRN PRN Reason: Shortness Of Breath/wheezing Enoxaparin Sodium (Lovenox) 40 mg SUBCUT Q24H [facility] Last Admin: 03/05/20 08:47 Dose: 40 mg Hydromorphone HCl (Dilaudid) 0.5 mg IVPUSH Q2H PRN PRN Reason: Pain (severe 7-10) Last Admin: 03/05/20 12:24 Dose: 0.5 mg Lactated Ringer's (Ringers, Lactated) 1,000 mls @ 125 mls/hr IV ASDIRECTED [facility] Last Admin: 03/04/20 17:47 Dose: 125 mls/hr Pantoprazole Sodium 40 mg/ (Sodium Chloride) 10 mls @ 300 mls/hr IV DAILY [facility] Last Admin: 03/05/20 08:46 Dose: 300 mls/hr Piperacillin Sod/Tazobactam (Sod 3.375 gm/ Sodium Chloride) 50 mls @ 100 mls/ hr IV Q6H [facility] Last Admin: 03/05/20 12:08 Dose: 100 mls/hr Lorazepam (Ativan) 0 mg IVPUSH Q4H PRN; Protocol PRN Reason: Withdrawal Symptoms Ondansetron HCl (Zofran) 4 mg IVPUSH Q4H PRN PRN Reason: Nausea/Vomiting Sodium Chloride (Saline Flush) 10 ml FLUSH ASDIRECTED PRN PRN Reason: Keep Vein Open Sodium Chloride (Saline Flush) 2.5 ml FLUSH ASDIRECTED PRN PRN Reason: Keep Vein Open Sodium Chloride (Normal Saline) 10 ml IV ASDIRECTED PRN PRN Reason: IV Use Discontinued Medications Fentanyl (Fentanyl) 50 mcg IVPUSH ONETIME ONE Stop: 03/04/20 13:32 Last Admin: 03/04/20 13:35 Dose: 50 mcg Fentanyl (Fentanyl) 50 mcg IVPUSH ONETIME ONE Stop: 03/04/20 16:02 Last Admin: 03/04/20 17:55 Dose: 50 mcg Hydromorphone HCl (Dilaudid) 0.5 mg IVPUSH Q2H PRN PRN Reason: Pain (severe 7-10) Last Admin: 03/05/20 03:28 Dose: 0.5 mg Magnesium Sulfate 2 gm/ Premix 50 mls @ 50 mls/hr IV ONETIME ONE Stop: 03/04/20 15:47 Last Admin: 03/04/20 14:59 Dose: 50 mls/hr Piperacillin Sod/Tazobactam (Sod 3.375 gm/ Sodium Chloride) 50 mls @ 100 mls/ hr IV ONETIME ONE Stop: 03/04/20 16:54 Last Admin: 03/04/20 17:47 Dose: 100 mls/hr Piperacillin Sod/Tazobactam (Sod 3.375 gm/ Sodium Chloride) 50 mls @ 100 mls/ hr IV Q8H [facility] Last Admin: 03/04/20 18:31 Dose: Not Given Potassium Chloride 40 meq/ (Dextrose/Lactated Ringer's) 1,020 mls @ 100 mls/hr IV ASDIRECTED [facility] Potassium Chloride 40 meq/ (Dextrose/Lactated Ringer's) 1,020 mls @ 100 mls/hr IV ONETIME ONE Stop: 03/05/20 03:11 Last Admin: 03/04/20 20:04 Dose: 100 mls/hr Iopamidol (Isovue Multipack-370 (76%)) 100 ml IVPUSH ONETIME ONE Stop: 03/04/20 14:39 Last Admin: 03/04/20 14:38 Dose: 100 ml Potassium Chloride (Potassium Chloride) 60 meq PO ONETIME ONE Stop: 03/04/20 14:50 Last Admin: 03/04/20 14:58 Dose: 60 meq - Exam Quality Assessment: Supplemental Oxygen General: Alert, Oriented HEENT: Pupils Equal, Pupils Reactive Lungs: Clear to Auscultation, Normal Respiratory Effort Cardiovascular: Regular Rate, Regular Rhythm GI/Abdominal Exam: Soft, Non-Tender, No Distention, No Mass Extremities: Normal Inspection Sepsis Event Note - Evaluation Sepsis Screening Result: No Definite Risk - Focused Exam Vital Signs: Vital Signs Temp Pulse Resp BP Pulse Ox 03/05/20 11:00 36.8 C 76 16 136/92 H 100 03/05/20 07:10 36.6 C 77 17 124/86 98 03/05/20 04:40 36.6 C 76 16 122/88 97 Date Exam was Performed: 03/05/20 Time Exam was Performed: 17:30 Consult PN Assessment/Plan Procedures: Procedures ASSAY OF FOLIC ACID SERUM (11/17/19) ASSAY OF LACTIC ACID (11/09/19) ASSAY OF LIPASE (08/11/18) ASSAY OF MAGNESIUM (11/09/19) ASSAY OF TROPONIN QUANT (04/18/15) ASSAY THYROID STIM HORMONE (11/17/19) BLOOD CULTURE FOR BACTERIA (11/09/19) CHEST X-RAY 1 VIEW FRONTAL (04/18/15) COMPLETE CBC W/AUTO DIFF WBC (11/09/19) COMPREHEN METABOLIC PANEL (11/09/19) CT ABD & PELV W/CONTRAST (11/09/19) ECHO EXAM OF ABDOMEN (08/18/18) ELECTROCARDIOGRAM TRACING (11/09/19) EMERGENCY DEPT VISIT (01/08/20) EMERGENCY DEPT VISIT (11/09/19) GLYCOSYLATED HEMOGLOBIN TEST (11/17/19) HYDRATE IV INFUSION ADD-ON (11/09/19) INFLUENZA ASSAY W/OPTIC (11/09/19) MICROBE SUSCEPTIBLE KAYLYN (11/09/19) MRI CHEST SPINE W/O & W/DYE (01/09/20) MRI NECK SPINE W/O & W/DYE (01/09/20) ROUTINE VENIPUNCTURE (11/17/19) THER/PROPH/DIAG INJ SC/IM (11/09/19) THER/PROPH/DIAG IV INF ADDON (11/09/19) THER/PROPH/DIAG IV INF INIT (11/09/19) TX/PRO/DX INJ NEW DRUG ADDON (11/09/19) TX/PRO/DX INJ SAME DRUG ETIOLOGIST (11/09/19) TX/PROPH/DG ADDL SEQ IV INF (11/09/19) URINALYSIS AUTO W/SCOPE (11/09/19) URINE BACTERIA CULTURE (11/09/19) URINE CULTURE/COLONY COUNT (11/09/19) URINE TEST (11/09/19) VITAMIN B-12 (11/17/19) X-RAY EXAM CHEST 1 VIEW (11/09/19) X-RAY EXAM OF ANKLE (01/08/20) X-RAY EXAM OF FOOT (02/23/20) (1) Cholelithiasis SNOMED Code(s): 371032397 Code(s): K80.20 - CALCULUS OF GALLBLADDER W/O CHOLECYSTITIS W/O OBSTRUCTION Current Visit: Yes (2) Elevated liver function tests SNOMED Code(s): 898190358, 919655244 Code(s): R94.5 - ABNORMAL RESULTS OF LIVER FUNCTION STUDIES Current Visit: No (3) Acute cholecystitis SNOMED Code(s): 10104089 Code(s): K81.0 - ACUTE CHOLECYSTITIS Current Visit: Yes Problem List Initiated/Reviewed/Updated: Yes Plan: The patient's MRI shows no evidence of a common bile duct stone. Her gallbladder does contain stones and there is pericholecystic fluid consistent with acute cholecystitis. Her LFTs and bilirubin are going down. It is unlikely she has a common bile duct stone since this is not seen on the MRCP and the improvement in her LFTs, bilirubin. Given how distended her gallbladder was, likely she had some obstruction due to the size of the gallbladder and/or she passed a very small stone. Her back pain is gone now and she is very comfortable. The patient and I discussed the pathophysiology of biliary disease. For acute cholelithiasis, treatment is removal of the gallbladder. The patient and I discussed the laparoscopic and open approach to cholecystectomy. Should I be unable to remove the gallbladder safely via the laparoscopic approach I will convert to open. We discussed the expected perioperative course as well as the risks including bleeding infection or damage to surrounding structures. Patient verbalized understanding and wishes to proceed. Please make the patient NPO at midnight. Continue IV zosyn. Continue IVF. CBC, CMP, and type and cross for the morning.
[2020-03-05] MEDS: Lactated Ringers 1,000 ML IV SCH (19:25)
[2020-03-06] MEDS: Lactated Ringers 1,000 ML IV SCH ×2 (04:46→16:40)
[2020-03-06] MEDS: HYDROmorphone 1 MG/ML Syringe IVPUSH PRN ×3 (04:47→21:06)
[2020-03-06] MEDS: Piperacillin/Tazobactam 3.375 GM in Sodium Chloride 0.9% 50 ML IV SCH ×4 (06:08→23:17)
[2020-03-06 06:36] LABS: BLOOD UREA NITROGEN,BUN 5 mg/dL (7.0-18.0); CARBON DIOXIDE,CO2 26.5 mmol/L (21.0-32.0); CHLORIDE,CL 103 mmol/L (98-107); GLUCOSE RANDOM 91 mg/dL (74-106); POTASSIUM,K 4.1 mmol/L (3.5-5.1); SODIUM,NA 137 mmol/L (136-145)
--- NOTE | 2020-03-06 08:03 | PCM.PN ---
- General Info Date of Service: 03/06/20 Admission Dx/Problem (Free Text): Admission Diagnosis/Problem Admission Diagnosis/Problem Cholecystitis Subjective Update: Feeling slightly improved, pain remains 5/10 to RUQ. No nausea. No chest pain or SOB. No other concerns this morning. Functional Status: Reports: Ambulating, Urinating - Review of Systems Pulmonary: Reports: No Symptoms. Denies: Shortness of Breath Cardiovascular: Reports: No Symptoms. Denies: Chest Pain Gastrointestinal: Reports: Abdominal Pain (RUQ), Flatus. Denies: Nausea, Vomiting Genitourinary: Reports: No Symptoms. Denies: Dysuria, Frequency, Burning Musculoskeletal: Reports: No Symptoms Skin: Reports: No Symptoms Neurological: Reports: No Symptoms Psychiatric: Reports: No Symptoms - Patient Data Vitals - Most Recent: Last Vital Signs Temp 98.3 F 03/06/20 07:34 Pulse 79 03/06/20 07:34 Resp 18 03/06/20 07:34 BP 139/102 H 03/06/20 07:34 Pulse Ox 100 03/06/20 07:34 Weight - Most Recent: 96 kg I&O - Last 24 Hours: Intake & Output 03/05/20 03/06/20 03/06/20 22:59 06:59 14:59 Intake Total 350 50 Output Total 1800 Balance -1450 50 Lab Results Last 24 Hours: Laboratory Results - last 24 hr 03/06/20 03/06/20 03/06/20 Range/Units 05:57 05:57 05:57 WBC 2.56 L (4.0-11.0) K/uL RBC 3.49 L (4.30-5.90) M/uL Hgb 10.0 L (12.0-16.0) g/dL Hct 31.9 L (36.0-46.0) % MCV 91.4 (80.0-98.0) fL MCH 28.7 (27.0-32.0) pg MCHC 31.3 (31.0-37.0) g/dL RDW Std Deviation 59.6 (28.0-62.0) fl RDW Coeff of Michaela 18 H (11.0-15.0) % Plt Count 145 L (150-400) K/uL MPV 10.30 (7.40-12.00) fL Neut % (Auto) 61.4 (48.0-80.0) % Lymph % (Auto) 23.0 (16.0-40.0) % Mccracken % (Auto) 11.7 (0.0-15.0) % Eos % (Auto) 3.5 (0.0-7.0) % Baso % (Auto) 0.4 (0.0-1.5) % Neut # (Auto) 1.6 (1.4-5.7) K/uL Lymph # (Auto) 0.6 (0.6-2.4) K/uL Mccracken # (Auto) 0.3 (0.0-0.8) K/uL Eos # (Auto) 0.1 (0.0-0.7) K/uL Baso # (Auto) 0.0 (0.0-0.1) K/uL Nucleated RBC % 0.0 /100WBC Nucleated RBCs # 0 K/uL Sodium 137 (136-145) mmol/L Potassium 4.1 (3.5-5.1) mmol/L Chloride 103 (98-107) mmol/L Carbon Dioxide 26.5 (21.0-32.0) mmol/L BUN 5 L (7.0-18.0) mg/dL Creatinine 0.6 (0.6-1.0) mg/dL Est Cr Clr Drug Dosing 130.89 mL/min Estimated GFR (MDRD) > 60.0 ml/min Glucose 91 (74-106) mg/dL Calcium 8.0 L (8.5-10.1) mg/dL Magnesium 1.8 (1.8-2.4) mg/dL Total Bilirubin 1.0 (0.2-1.0) mg/dL AST 68 H (15-37) IU/L ALT 58 (14-63) IU/L Alkaline Phosphatase 78 (46-116) U/L Total Protein 5.8 L (6.4-8.2) g/dL Albumin 2.5 L (3.4-5.0) g/dL Globulin 3.3 (2.6-4.0) g/dL Albumin/Globulin Ratio 0.8 L (0.9-1.6) Blood Type AB NEGATIVE Antibody Screen NEGATIVE Med Orders - Current: Current Medications Albuterol/Ipratropium (Duoneb 3.0-0.5 Mg/3 Ml) 3 ml NEB Q4HRRT PRN PRN Reason: Shortness Of Breath/wheezing Enoxaparin Sodium (Lovenox) 40 mg SUBCUT Q24H [facility] Last Admin: 03/05/20 08:47 Dose: 40 mg Hydromorphone HCl (Dilaudid) 0.5 mg IVPUSH Q2H PRN PRN Reason: Pain (severe 7-10) Last Admin: 03/06/20 04:47 Dose: 0.5 mg Lactated Ringer's (Ringers, Lactated) 1,000 mls @ 125 mls/hr IV ASDIRECTED [facility] Last Admin: 03/06/20 04:46 Dose: 125 mls/hr Pantoprazole Sodium 40 mg/ (Sodium Chloride) 10 mls @ 300 mls/hr IV DAILY [facility] Last Admin: 03/05/20 08:46 Dose: 300 mls/hr Piperacillin Sod/Tazobactam (Sod 3.375 gm/ Sodium Chloride) 50 mls @ 100 mls/ hr IV Q6H [facility] Last Admin: 03/06/20 06:08 Dose: 100 mls/hr Lorazepam (Ativan) 0 mg IVPUSH Q4H PRN; Protocol PRN Reason: Withdrawal Symptoms Ondansetron HCl (Zofran) 4 mg IVPUSH Q4H PRN PRN Reason: Nausea/Vomiting Sodium Chloride (Saline Flush) 10 ml FLUSH ASDIRECTED PRN PRN Reason: Keep Vein Open Sodium Chloride (Saline Flush) 2.5 ml FLUSH ASDIRECTED PRN PRN Reason: Keep Vein Open Sodium Chloride (Normal Saline) 10 ml IV ASDIRECTED PRN PRN Reason: IV Use Discontinued Medications Fentanyl (Fentanyl) 50 mcg IVPUSH ONETIME ONE Stop: 03/04/20 13:32 Last Admin: 03/04/20 13:35 Dose: 50 mcg Fentanyl (Fentanyl) 50 mcg IVPUSH ONETIME ONE Stop: 03/04/20 16:02 Last Admin: 03/04/20 17:55 Dose: 50 mcg Hydromorphone HCl (Dilaudid) 0.5 mg IVPUSH Q2H PRN PRN Reason: Pain (severe 7-10) Last Admin: 03/05/20 03:28 Dose: 0.5 mg Magnesium Sulfate 2 gm/ Premix 50 mls @ 50 mls/hr IV ONETIME ONE Stop: 03/04/20 15:47 Last Admin: 03/04/20 14:59 Dose: 50 mls/hr Piperacillin Sod/Tazobactam (Sod 3.375 gm/ Sodium Chloride) 50 mls @ 100 mls/ hr IV ONETIME ONE Stop: 03/04/20 16:54 Last Admin: 03/04/20 17:47 Dose: 100 mls/hr Piperacillin Sod/Tazobactam (Sod 3.375 gm/ Sodium Chloride) 50 mls @ 100 mls/ hr IV Q8H [facility] Last Admin: 03/04/20 18:31 Dose: Not Given Potassium Chloride 40 meq/ (Dextrose/Lactated Ringer's) 1,020 mls @ 100 mls/hr IV ASDIRECTED [facility] Potassium Chloride 40 meq/ (Dextrose/Lactated Ringer's) 1,020 mls @ 100 mls/hr IV ONETIME ONE Stop: 03/05/20 03:11 Last Admin: 03/04/20 20:04 Dose: 100 mls/hr Iopamidol (Isovue Multipack-370 (76%)) 100 ml IVPUSH ONETIME ONE Stop: 03/04/20 14:39 Last Admin: 03/04/20 14:38 Dose: 100 ml Potassium Chloride (Potassium Chloride) 60 meq PO ONETIME ONE Stop: 03/04/20 14:50 Last Admin: 03/04/20 14:58 Dose: 60 meq - Exam General: Alert, Oriented, Cooperative, No Acute Distress Lungs: Clear to Auscultation, Normal Respiratory Effort Cardiovascular: Regular Rate, Regular Rhythm GI/Abdominal Exam: Normal Bowel Sounds, Soft, Non-Tender Extremities: Normal Inspection, Normal Range of Motion, Non-Tender, No Pedal Edema Neurological: No New Focal Deficit Psy/Mental Status: Alert, Normal Affect, Normal Mood Sepsis Event Note - Evaluation Sepsis Screening Result: No Definite Risk - Focused Exam Vital Signs: Vital Signs Temp Pulse Resp BP Pulse Ox 03/06/20 07:34 98.3 F 79 18 139/102 H 100 03/06/20 04:00 98.6 F 74 17 148/98 H 100 03/05/20 23:42 99 F 79 17 139/85 98 Date Exam was Performed: 03/06/20 Time Exam was Performed: 09:18 - Problem List & Annotations (1) Acute cholecystitis SNOMED Code(s): 43816042 Code(s): K81.0 - ACUTE CHOLECYSTITIS Status: Acute Current Visit: Yes (2) Cholelithiasis SNOMED Code(s): 370039167 Code(s): K80.20 - CALCULUS OF GALLBLADDER W/O CHOLECYSTITIS W/O OBSTRUCTION Status: Acute Current Visit: Yes (3) History of alcohol abuse SNOMED Code(s): 815961860 Code(s): F10.11 - ALCOHOL ABUSE, IN REMISSION Status: Chronic Current Visit: Yes - Problem List Review Problem List Initiated/Reviewed/Updated: Yes - My Orders Last 24 Hours: My Active Orders 03/05/20 11:32 Patient Status [ADT] Routine 03/05/20 Dinner NPO After Midnight [Nothing per Oral After Midnight Diet] [DIET] 03/07/20 05:11 CBC WITH AUTO DIFF [HEME] AM COMPREHENSIVE METABOLIC PN,CMP [CHEM] AM MAGNESIUM [CHEM] AM 03/08/20 05:11 CBC WITH AUTO DIFF [HEME] AM COMPREHENSIVE METABOLIC PN,CMP [CHEM] AM MAGNESIUM [CHEM] AM - Plan Plan:: This 49 year old admitted for acute cholecystitis 1. Acute cholecystitis: - Consult Dr Waldrop, general surgery, to OR today for cholecystectomy. - MRCP yesterday revealed acute cholecystitis no CBD stone, cholelithiasis - NPO since midnight - Continue Zosyn - Dilaudid for pain per orders - IV fluids for hydration - IV Zofran for N/V 2. Alcohol abuse: - No current withdrawal symptoms. - CIWAA protocol with Ativan PRN, has not needed this. VTE prophylaxis: Lovenox Dispo: 2-3 days pending post-operative course.
[2020-03-06] MEDS: Pantoprazole 40 MG in Sodium Chloride 0.9% 10 ML IV SCH (09:12)
[2020-03-06] MEDS: Enoxaparin 40 MG/0.4 ML Syringe SUBCUT SCH (09:12)
[2020-03-06] MEDS ORDERED: Midazolam 1 MG/ML 2 ML SDV ONE (12:18)
[2020-03-06] MEDS ORDERED: Propofol 200 MG/20 ML SDV ONE (12:18)
[2020-03-06] MEDS ORDERED: fentaNYL 250 MCG/5 ML SDV ONE (12:18)
[2020-03-06] MEDS ORDERED: Succinylcholine/Sod PF 100 MG/5 ML SYRINGE IV ONE (12:21)
[2020-03-06] MEDS ORDERED: Rocuronium 100 MG/10 ML Syringe ONE (12:21)
[2020-03-06] MEDS ORDERED: Dexamethasone 4 MG/ML 5 ML MDV ONE (12:22)
[2020-03-06] MEDS ORDERED: Ondansetron 4 MG/2 ML SDV ONE (12:22)
--- NOTE | 2020-03-06 12:44 | PCM.PREANE ---
Preanesthetic Assessment - Anesthesia/Transfusion/Family Hx Anesthesia History: Prior Anesthesia Without Reaction Family History of Anesthesia Reaction: No Transfusion History: Prior Transfusion Without Reaction - Review of Systems General: No Symptoms Pulmonary: No Symptoms Cardiovascular: No Symptoms Gastrointestinal: No Symptoms Neurological: No Symptoms Other: Reports: None - Physical Assessment NPO Status Date: 03/05/20 Vital Signs: Last Vital Signs Temp 99 F 03/06/20 11:22 Pulse 78 03/06/20 11:22 Resp 16 03/06/20 11:22 BP 165/105 H 03/06/20 11:22 Pulse Ox 100 03/06/20 11:22 Height: 6 ft Weight: 96 kg ASA Class: 2 Mental Status: Alert & Oriented x3 Dentition: Reports: Normal Dentition ROM/Head Extension: Full Lungs: Clear to Auscultation, Normal Respiratory Effort Cardiovascular: Regular Rate, Regular Rhythm - Lab Values: Laboratory Last Values WBC 2.56 K/uL (4.0-11.0) L 03/06/20 05:57 RBC 3.49 M/uL (4.30-5.90) L 03/06/20 05:57 Hgb 10.0 g/dL (12.0-16.0) L 03/06/20 05:57 Hct 31.9 % (36.0-46.0) L 03/06/20 05:57 MCV 91.4 fL (80.0-98.0) 03/06/20 05:57 MCH 28.7 pg (27.0-32.0) 03/06/20 05:57 MCHC 31.3 g/dL (31.0-37.0) 03/06/20 05:57 RDW Std Deviation 59.6 fl (28.0-62.0) 03/06/20 05:57 RDW Coeff of Michaela 18 % (11.0-15.0) H 03/06/20 05:57 Plt Count 145 K/uL (150-400) L 03/06/20 05:57 MPV 10.30 fL (7.40-12.00) 03/06/20 05:57 Neut % (Auto) 61.4 % (48.0-80.0) 03/06/20 05:57 Lymph % (Auto) 23.0 % (16.0-40.0) 03/06/20 05:57 [place] % (Auto) 11.7 % (0.0-15.0) 03/06/20 05:57 Eos % (Auto) 3.5 % (0.0-7.0) 03/06/20 05:57 Baso % (Auto) 0.4 % (0.0-1.5) 03/06/20 05:57 Neut # (Auto) 1.6 K/uL (1.4-5.7) 03/06/20 05:57 Lymph # (Auto) 0.6 K/uL (0.6-2.4) 03/06/20 05:57 [place] # (Auto) 0.3 K/uL (0.0-0.8) 03/06/20 05:57 Eos # (Auto) 0.1 K/uL (0.0-0.7) 03/06/20 05:57 Baso # (Auto) 0.0 K/uL (0.0-0.1) 03/06/20 05:57 Nucleated RBC % 0.0 /100WBC 03/06/20 05:57 Nucleated RBCs # 0 K/uL 03/06/20 05:57 Sodium 137 mmol/L (136-145) 03/06/20 05:57 Potassium 4.1 mmol/L (3.5-5.1) 03/06/20 05:57 Chloride 103 mmol/L (98-107) 03/06/20 05:57 Carbon Dioxide 26.5 mmol/L (21.0-32.0) 03/06/20 05:57 BUN 5 mg/dL (7.0-18.0) L 03/06/20 05:57 Creatinine 0.6 mg/dL (0.6-1.0) 03/06/20 05:57 Est Cr Clr Drug Dosing 130.89 mL/min 03/06/20 05:57 Estimated GFR (MDRD) > 60.0 ml/min 03/06/20 05:57 Glucose 91 mg/dL (74-106) 03/06/20 05:57 Calcium 8.0 mg/dL (8.5-10.1) L 03/06/20 05:57 Phosphorus 2.9 mg/dL (2.6-4.7) 03/05/20 05:55 Magnesium 1.8 mg/dL (1.8-2.4) 03/06/20 05:57 Total Bilirubin 1.0 mg/dL (0.2-1.0) 03/06/20 05:57 AST 68 IU/L (15-37) H 03/06/20 05:57 ALT 58 IU/L (14-63) 03/06/20 05:57 Alkaline Phosphatase 78 U/L (46-116) 03/06/20 05:57 Troponin I < 0.050 ng/mL (0.000-0.056) 03/04/20 13:28 Total Protein 5.8 g/dL (6.4-8.2) L 03/06/20 05:57 Albumin 2.5 g/dL (3.4-5.0) L 03/06/20 05:57 Globulin 3.3 g/dL (2.6-4.0) 03/06/20 05:57 Albumin/Globulin Ratio 0.8 (0.9-1.6) L 03/06/20 05:57 Lipase 339 U/L (73-393) 03/04/20 13:28 HCG, Qual NEGATIVE (NEG) 03/04/20 13:28 SARS-CoV-2 RNA (RT-PCR) NEGATIVE (NEGATIVE) 03/04/20 17:56 Blood Type AB NEGATIVE 03/06/20 05:57 Antibody Screen NEGATIVE 03/06/20 05:57 - Allergies Allergies/Adverse Reactions: Allergies Allergy/AdvReac Type Severity Reaction Status Date / Time No Known Allergies Allergy Verified 03/04/20 18:37 - Anesthesia Plan Pre-Op Medication Ordered: None - Acknowledgements Anesthesia Type Planned: General Anesthesia Pt an Appropriate Candidate for the Planned Anesthesia: Yes Alternatives and Risks of Anesthesia Discussed w Pt/Guardian: Yes Pt/Guardian Understands and Agrees with Anesthesia Plan: Yes Additional Comments: PMH: anemia, hx of DVT, chronic LBP, anxiety, AUD- no alcohol x 7 days, no withdrawal sx. PLAN: get PreAnesthesia Questionnaire - Past Health History Medical/Surgical History: Denies Medical/Surgical History HEENT History: Reports: None Cardiovascular History: Reports: Blood Clots/VTE/DVT Respiratory History: Reports: None Gastrointestinal History: Reports: None Genitourinary History: Reports: None [employer] History: Reports: Musculoskeletal History: Reports: Back Pain, Chronic Neurological History: Reports: None Psychiatric History: Reports: Anxiety, Other (See Below) Other Psychiatric History: anxiety after of brother Endocrine/Metabolic History: Reports: None Hematologic History: Reports: None Immunologic History: Reports: None Oncologic (Cancer) History: Reports: None Dermatologic History: Reports: None - Infectious Disease History Infectious Disease History: Reports: None - Past Surgical History Head Surgeries/Procedures: Reports: None HEENT Surgical History: Reports: Tonsillectomy Cardiovascular Surgical History: Reports: None Respiratory Surgical History: Reports: None GI Surgical History: Reports: Appendectomy Female Surgical History: Reports: Tubal Ligation Endocrine Surgical History: Reports: None Neurological Surgical History: Reports: None Musculoskeletal Surgical History: Reports: Other (See Below) Other Musculoskeletal Surgeries/Procedures:: had back surgery with rods/pins Oncologic Surgical History: Reports: None Dermatological Surgical History: Reports: None - SUBSTANCE USE Smoking Status *Q: Never Smoker Second Hand Smoke Exposure: No Days Per Week of Alcohol Use: 1 Number of Drinks Per Day: 2 Total Drinks Per Week: 2 Date of Last Drink: 03/03/20 Recreational Drug Use History: No - HOME MEDS Home Medications: Home Meds . [No Known Home Meds] 03/04/20 [History] - CURRENT (IN HOUSE) MEDS Current Meds: Current Medications Albuterol/Ipratropium (Duoneb 3.0-0.5 Mg/3 Ml) 3 ml NEB Q4HRRT PRN PRN Reason: Shortness Of Breath/wheezing Enoxaparin Sodium (Lovenox) 40 mg SUBCUT Q24H [facility] Last Admin: 03/06/20 09:12 Dose: 40 mg Hydromorphone HCl (Dilaudid) 0.5 mg IVPUSH Q2H PRN PRN Reason: Pain (severe 7-10) Last Admin: 03/06/20 04:47 Dose: 0.5 mg Lactated Ringer's (Ringers, Lactated) 1,000 mls @ 125 mls/hr IV ASDIRECTED MARYAN Last Admin: 03/06/20 04:46 Dose: 125 mls/hr Pantoprazole Sodium 40 mg/ (Sodium Chloride) 10 mls @ 300 mls/hr IV DAILY MARYAN Last Admin: 03/06/20 09:12 Dose: 300 mls/hr Piperacillin Sod/Tazobactam (Sod 3.375 gm/ Sodium Chloride) 50 mls @ 100 mls/ hr IV Q6H MARYAN Last Admin: 03/06/20 11:24 Dose: 100 mls/hr Lorazepam (Ativan) 0 mg IVPUSH Q4H PRN; Protocol PRN Reason: Withdrawal Symptoms Ondansetron HCl (Zofran) 4 mg IVPUSH Q4H PRN PRN Reason: Nausea/Vomiting Sodium Chloride (Saline Flush) 10 ml FLUSH ASDIRECTED PRN PRN Reason: Keep Vein Open Sodium Chloride (Saline Flush) 2.5 ml FLUSH ASDIRECTED PRN PRN Reason: Keep Vein Open Sodium Chloride (Normal Saline) 10 ml IV ASDIRECTED PRN PRN Reason: IV Use Discontinued Medications Dexamethasone (Dexamethasone) Confirm Administered Dose 20 mg .ROUTE .STK-MED ONE Stop: 03/06/20 12:23 Fentanyl (Fentanyl) 50 mcg IVPUSH ONETIME ONE Stop: 03/04/20 13:32 Last Admin: 03/04/20 13:35 Dose: 50 mcg Fentanyl (Fentanyl) 50 mcg IVPUSH ONETIME ONE Stop: 03/04/20 16:02 Last Admin: 03/04/20 17:55 Dose: 50 mcg Fentanyl (Sublimaze) Confirm Administered Dose 250 mcg .ROUTE .STK-MED ONE Stop: 03/06/20 12:19 Hydromorphone HCl (Dilaudid) 0.5 mg IVPUSH Q2H PRN PRN Reason: Pain (severe 7-10) Last Admin: 03/05/20 03:28 Dose: 0.5 mg Magnesium Sulfate 2 gm/ Premix 50 mls @ 50 mls/hr IV ONETIME ONE Stop: 03/04/20 15:47 Last Admin: 03/04/20 14:59 Dose: 50 mls/hr Piperacillin Sod/Tazobactam (Sod 3.375 gm/ Sodium Chloride) 50 mls @ 100 mls/ hr IV ONETIME ONE Stop: 03/04/20 16:54 Last Admin: 03/04/20 17:47 Dose: 100 mls/hr Piperacillin Sod/Tazobactam (Sod 3.375 gm/ Sodium Chloride) 50 mls @ 100 mls/ hr IV Q8H [facility] Last Admin: 03/04/20 18:31 Dose: Not Given Potassium Chloride 40 meq/ (Dextrose/Lactated Ringer's) 1,020 mls @ 100 mls/hr IV ASDIRECTED MARYAN Potassium Chloride 40 meq/ (Dextrose/Lactated Ringer's) 1,020 mls @ 100 mls/hr IV ONETIME ONE Stop: 03/05/20 03:11 Last Admin: 03/04/20 20:04 Dose: 100 mls/hr Iopamidol (Isovue Multipack-370 (76%)) 100 ml IVPUSH ONETIME ONE Stop: 03/04/20 14:39 Last Admin: 03/04/20 14:38 Dose: 100 ml Lidocaine HCl (Xylocaine-Mpf 1%) Confirm Administered Dose 5 ml .ROUTE .STK-MED ONE Stop: 03/06/20 12:22 Midazolam HCl (Versed 1 Mg/Ml) Confirm Administered Dose 2 mg .ROUTE .STK-MED ONE Stop: 03/06/20 12:19 Ondansetron HCl (Zofran) Confirm Administered Dose 4 mg .ROUTE .STK-MED ONE Stop: 03/06/20 12:23 Potassium Chloride (Potassium Chloride) 60 meq PO ONETIME ONE Stop: 03/04/20 14:50 Last Admin: 03/04/20 14:58 Dose: 60 meq Propofol (Diprivan 20 Ml) Confirm Administered Dose 200 mg .ROUTE .STK-MED ONE Stop: 03/06/20 12:19 Rocuronium [place] (Zemuron) Confirm Administered Dose 100 mg .ROUTE .STK-MED ONE Stop: 03/06/20 12:22
[2020-03-06] MEDS ORDERED: Bupivacaine 0.5% 30 ML SDV ONE (12:56)
[2020-03-06] MEDS ORDERED: Vasopressin 20 Units/1 ML MDV ONE (14:44)
[2020-03-06] MEDS ORDERED: Glycopyrrolate 0.2 MG/ML SDV ONE (15:01)
[2020-03-06] MEDS ORDERED: Albumin 5% 250 ML IV PRN (15:02)
--- NOTE | 2020-03-06 15:47 | PCM.OPNOTE ---
- General Post-Op/Procedure Note Date of Surgery/Procedure: 03/06/20 Operative Procedure(s): Laparoscopic cholecystectomy Findings: Grossly enlarged and inflamed gallbladder consistent with acute cholecystitis. Gallbladder contained sludge-like dark bile. Pre Op Diagnosis: Acute cholecystitis Post-Op Diagnosis: same Anesthesia Technique: General ET Tube Primary Surgeon: Grace Waldrop Fluid Replacement, Intraop: 1,800 Output, Urine Amount: 550 EBL in mLs: 30 Condition: Fair Free Text/Narrative:: Intake & Output 03/06/20 03/06/20 03/06/20 06:59 14:59 22:59 Intake Total 350 50 Output Total 1800 Balance -1450 50
[2020-03-06] MEDS ORDERED: Acetaminophen 1,000 MG in Premix Bag 1 BAG IV PRN (15:51)
[2020-03-06] MEDS ORDERED: Ketorolac 30 MG/ML SDV IVPUSH ONE (15:53)
--- NOTE | 2020-03-06 15:56 | PCM.SN.2 ---
- Free Text/Narrative Note: Patient did well overnight. Vitals stable. LFTs and Bilirubin normal. WBC unchanged. Patient and I discussed the immobilizer boot on her left lower extremity. She has a broken bone. This will not be removed during the case since she will be placed into reverse Trendelenburg position and have to weight bear on that side. There is metal in the boot, however none of it is touching the patient. She and I discussed the slight risk of electrocautery injury and wright to the area. She verbalized understanding. Will proceed with laparoscopic possible open cholecystectomy today.
[2020-03-06] MEDS ORDERED: fentaNYL 100 MCG/2 ML SDV IVPUSH PRN (16:08)
[2020-03-06] MEDS: Cyclobenzaprine 5 MG Tab PO PRN (19:56)
[2020-03-06] MEDS ORDERED: Ketorolac 10 MG Tab PO PRN (22:00)
[2020-03-06] MEDS: Acetaminophen/oxyCODONE 325-5 MG Tab PO PRN (23:18)
[2020-03-07] MEDS: HYDROmorphone 1 MG/ML Syringe IVPUSH PRN (01:39)
[2020-03-07] MEDS: Lactated Ringers 1,000 ML IV SCH (01:48)
[2020-03-07] MEDS: Acetaminophen/oxyCODONE 325-5 MG Tab PO PRN ×2 (03:55→08:08)
[2020-03-07] MEDS: Piperacillin/Tazobactam 3.375 GM in Sodium Chloride 0.9% 50 ML IV SCH (05:51)
[2020-03-07 06:38] LABS: BLOOD UREA NITROGEN,BUN 6 mg/dL (7.0-18.0); CARBON DIOXIDE,CO2 25.3 mmol/L (21.0-32.0); CHLORIDE,CL 101 mmol/L (98-107); GLUCOSE RANDOM 86 mg/dL (74-106); POTASSIUM,K 4.4 mmol/L (3.5-5.1); SODIUM,NA 134 mmol/L (136-145)
[2020-03-07] MEDS ORDERED: Magnesium Sulfate/Water 2 GM in Premix Bag 1 BAG IV ONE (07:53)
[2020-03-07] MEDS: Pantoprazole 40 MG in Sodium Chloride 0.9% 10 ML IV SCH (08:09)
--- NOTE | 2020-03-07 08:35 | PCM.SURGPN ---
- General Info Date of Service: 03/07/20 Date of Surgery/Procedure: 03/06/20 POD#: 1 Functional Status: Reports: Pain Controlled, Tolerating Diet, Ambulating, Urinating. Denies: New Symptoms - Review of Systems General: Reports: No Symptoms HEENT: Reports: No Symptoms Pulmonary: Reports: No Symptoms, Other (Hiccups) Cardiovascular: Reports: No Symptoms Gastrointestinal: Reports: No Symptoms Musculoskeletal: Reports: No Symptoms - Patient Data Vitals - Most Recent: Last Vital Signs Temp 36.7 C 03/07/20 04:00 Pulse 82 03/07/20 04:00 Resp 17 03/07/20 04:00 BP 135/83 03/07/20 04:00 Pulse Ox 98 03/07/20 04:00 Weight - Most Recent: 96 kg I&O - Last 24 Hours: Intake & Output 03/06/20 03/07/20 03/07/20 22:59 06:59 14:59 Intake Total 5063 1948 50 Output Total 1100 1200 Balance 3963 748 50 Lab Results Last 24 Hrs: Laboratory Results - last 24 hr 03/07/20 03/07/20 Range/Units 06:04 06:04 WBC 4.75 (4.0-11.0) K/uL RBC 3.48 L (4.30-5.90) M/uL Hgb 10.0 L (12.0-16.0) g/dL Hct 31.6 L (36.0-46.0) % MCV 90.8 (80.0-98.0) fL MCH 28.7 (27.0-32.0) pg MCHC 31.6 (31.0-37.0) g/dL RDW Std Deviation 58.1 (28.0-62.0) fl RDW Coeff of Michaela 18 H (11.0-15.0) % Plt Count 165 (150-400) K/uL MPV 10.40 (7.40-12.00) fL Neut % (Auto) 74.1 (48.0-80.0) % Lymph % (Auto) 12.4 L (16.0-40.0) % [place] % (Auto) 13.3 (0.0-15.0) % Eos % (Auto) 0.2 (0.0-7.0) % Baso % (Auto) 0.0 (0.0-1.5) % Neut # (Auto) 3.5 (1.4-5.7) K/uL Lymph # (Auto) 0.6 (0.6-2.4) K/uL [place] # (Auto) 0.6 (0.0-0.8) K/uL Eos # (Auto) 0.0 (0.0-0.7) K/uL Baso # (Auto) 0.0 (0.0-0.1) K/uL Nucleated RBC % 0.0 /100WBC Nucleated RBCs # 0 K/uL Sodium 134 L (136-145) mmol/L Potassium 4.4 (3.5-5.1) mmol/L Chloride 101 (98-107) mmol/L Carbon Dioxide 25.3 (21.0-32.0) mmol/L BUN 6 L (7.0-18.0) mg/dL Creatinine 0.8 (0.6-1.0) mg/dL Est Cr Clr Drug Dosing 98.16 mL/min Estimated GFR (MDRD) > 60.0 ml/min Glucose 86 (74-106) mg/dL Calcium 8.1 L (8.5-10.1) mg/dL Magnesium 1.6 L (1.8-2.4) mg/dL Total Bilirubin 0.9 (0.2-1.0) mg/dL AST 42 H (15-37) IU/L ALT 46 (14-63) IU/L Alkaline Phosphatase 74 (46-116) U/L Total Protein 5.7 L (6.4-8.2) g/dL Albumin 2.4 L (3.4-5.0) g/dL Globulin 3.3 (2.6-4.0) g/dL Albumin/Globulin Ratio 0.7 L (0.9-1.6) Med Orders - Current: Current Medications Albuterol/Ipratropium (Duoneb 3.0-0.5 Mg/3 Ml) 3 ml NEB Q4HRRT PRN PRN Reason: Shortness Of Breath/wheezing Cyclobenzaprine HCl (Flexeril) 5 mg PO TID PRN PRN Reason: Muscle Spasm Last Admin: 03/06/20 19:56 Dose: 5 mg Enoxaparin Sodium (Lovenox) 40 mg SUBCUT Q24H MARYAN Last Admin: 03/06/20 09:12 Dose: 40 mg Pantoprazole Sodium 40 mg/ (Sodium Chloride) 10 mls @ 300 mls/hr IV DAILY MARYAN Last Admin: 03/07/20 08:09 Dose: 300 mls/hr Albumin Human (Buminate 5%) 250 mls @ 250 mls/hr IV ASDIRECTED PRN PRN Reason: Hypotension Acetaminophen 1,000 mg/ Premix 100 mls @ 400 mls/hr IV NOW PRN PRN Reason: Abdominal Pain Last Admin: 03/06/20 15:58 Dose: 400 mls/hr Magnesium Sulfate 2 gm/ Premix 50 mls @ 50 mls/hr IV ONETIME ONE Stop: 03/07/20 08:52 Last Admin: 03/07/20 08:09 Dose: 50 mls/hr Ketorolac Tromethamine (Toradol) 10 mg PO Q6H PRN PRN Reason: Abdominal Pain Stop: 03/11/20 22:01 Lorazepam (Ativan) 0 mg IVPUSH Q4H PRN; Protocol PRN Reason: Withdrawal Symptoms Ondansetron HCl (Zofran) 4 mg IVPUSH Q4H PRN PRN Reason: Nausea/Vomiting Oxycodone/Acetaminophen (Percocet 325-5 Mg) 2 tab PO Q4H PRN PRN Reason: Pain (severe 7-10) Last Admin: 03/07/20 08:08 Dose: 1 tab Sodium Chloride (Saline Flush) 10 ml FLUSH ASDIRECTED PRN PRN Reason: Keep Vein Open Sodium Chloride (Saline Flush) 2.5 ml FLUSH ASDIRECTED PRN PRN Reason: Keep Vein Open Sodium Chloride (Normal Saline) 10 ml IV ASDIRECTED PRN PRN Reason: IV Use Discontinued Medications Bupivacaine HCl (Marcaine 0.5%) Confirm Administered Dose 30 ml .ROUTE .STK-MED ONE Stop: 03/06/20 12:57 Dexamethasone (Dexamethasone) Confirm Administered Dose 20 mg .ROUTE .STK-MED ONE Stop: 03/06/20 12:23 Fentanyl (Fentanyl) 50 mcg IVPUSH ONETIME ONE Stop: 03/04/20 13:32 Last Admin: 03/04/20 13:35 Dose: 50 mcg Fentanyl (Fentanyl) 50 mcg IVPUSH ONETIME ONE Stop: 03/04/20 16:02 Last Admin: 03/04/20 17:55 Dose: 50 mcg Fentanyl (Sublimaze) Confirm Administered Dose 250 mcg .ROUTE .STK-MED ONE Stop: 03/06/20 12:19 Fentanyl (Sublimaze) 50 mcg IVPUSH Q5M PRN PRN Reason: Pain (severe 7-10) Stop: 03/06/20 18:00 Last Admin: 03/06/20 16:17 Dose: 50 mcg Glycopyrrolate (Robinul) Confirm Administered Dose 0.4 mg .ROUTE .STK-MED ONE Stop: 03/06/20 15:02 Hydromorphone HCl (Dilaudid) 0.5 mg IVPUSH Q2H PRN PRN Reason: Pain (severe 7-10) Last Admin: 03/05/20 03:28 Dose: 0.5 mg Hydromorphone HCl (Dilaudid) 0.5 mg IVPUSH Q2H PRN PRN Reason: Pain (severe 7-10) Last Admin: 03/07/20 01:39 Dose: 0.5 mg Magnesium Sulfate 2 gm/ Premix 50 mls @ 50 mls/hr IV ONETIME ONE Stop: 03/04/20 15:47 Last Admin: 03/04/20 14:59 Dose: 50 mls/hr Piperacillin Sod/Tazobactam (Sod 3.375 gm/ Sodium Chloride) 50 mls @ 100 mls/ hr IV ONETIME ONE Stop: 03/04/20 16:54 Last Admin: 03/04/20 17:47 Dose: 100 mls/hr Lactated Ringer's (Ringers, Lactated) 1,000 mls @ 125 mls/hr IV ASDIRECTED COUNT INCLUDES THE [facility] Last Admin: 03/07/20 01:48 Dose: 125 mls/hr Piperacillin Sod/Tazobactam (Sod 3.375 gm/ Sodium Chloride) 50 mls @ 100 mls/ hr IV Q8H COUNT INCLUDES THE [facility] Last Admin: 03/04/20 18:31 Dose: Not Given Potassium Chloride 40 meq/ (Dextrose/Lactated Ringer's) 1,020 mls @ 100 mls/hr IV ASDIRECTED COUNT INCLUDES THE [facility] Potassium Chloride 40 meq/ (Dextrose/Lactated Ringer's) 1,020 mls @ 100 mls/hr IV ONETIME ONE Stop: 03/05/20 03:11 Last Admin: 03/04/20 20:04 Dose: 100 mls/hr Piperacillin Sod/Tazobactam (Sod 3.375 gm/ Sodium Chloride) 50 mls @ 100 mls/ hr IV Q6H MARYAN Last Admin: 03/07/20 05:51 Dose: 100 mls/hr Acetaminophen (Ofirmev) Confirm Administered Dose 100 mls @ as directed .ROUTE .STK-MED ONE Stop: 03/06/20 15:57 Iopamidol (Isovue Multipack-370 (76%)) 100 ml IVPUSH ONETIME ONE Stop: 03/04/20 14:39 Last Admin: 03/04/20 14:38 Dose: 100 ml Ketorolac Tromethamine (Toradol) 30 mg IVPUSH ONETIME ONE Stop: 03/06/20 15:54 Last Admin: 03/06/20 16:01 Dose: 30 mg Lidocaine HCl (Xylocaine-Mpf 1%) Confirm Administered Dose 5 ml .ROUTE .STK-MED ONE Stop: 03/06/20 12:22 Midazolam HCl (Versed 1 Mg/Ml) Confirm Administered Dose 2 mg .ROUTE .STK-MED ONE Stop: 03/06/20 12:19 Ondansetron HCl (Zofran) Confirm Administered Dose 4 mg .ROUTE .STK-MED ONE Stop: 03/06/20 12:23 Potassium Chloride (Potassium Chloride) 60 meq PO ONETIME ONE Stop: 03/04/20 14:50 Last Admin: 03/04/20 14:58 Dose: 60 meq Propofol (Diprivan 20 Ml) Confirm Administered Dose 200 mg .ROUTE .STK-MED ONE Stop: 03/06/20 12:19 Rocuronium [place] (Zemuron) Confirm Administered Dose 100 mg .ROUTE .STK-MED ONE Stop: 03/06/20 12:22 Vasopressin (Vasopressin) Confirm Administered Dose 20 units .ROUTE .STK-MED ONE Stop: 03/06/20 14:45 - Exam Wound/Incisions: Healing Well, Dressing Dry and Intact General: Alert, Oriented HEENT: Pupils Equal, Pupils Reactive Lungs: Clear to Auscultation, Normal Respiratory Effort Cardiovascular: Regular Rate, Regular Rhythm GI/Abdominal Exam: Soft, Non-Tender, No Distention, No Mass Skin: Warm, Dry, Intact Sepsis Event Note - Evaluation Sepsis Screening Result: No Definite Risk - Focused Exam Vital Signs: Vital Signs Temp Pulse Resp BP Pulse Ox 03/07/20 04:00 36.7 C 82 17 135/83 98 03/06/20 23:26 36.6 C 79 18 143/97 H 100 Date Exam was Performed: 03/07/20 Time Exam was Performed: 08:32 - Problem List & Annotations (1) Cholelithiasis SNOMED Code(s): 996203295 Code(s): K80.20 - CALCULUS OF GALLBLADDER W/O CHOLECYSTITIS W/O OBSTRUCTION Status: Acute Current Visit: Yes (2) Elevated liver function tests SNOMED Code(s): 782419817, 793083904 Code(s): R94.5 - ABNORMAL RESULTS OF LIVER FUNCTION STUDIES Status: Acute Current Visit: No (3) Acute cholecystitis SNOMED Code(s): 12760711 Code(s): K81.0 - ACUTE CHOLECYSTITIS Status: Acute Current Visit: Yes - Problem List Review Problem List Initiated/Reviewed/Updated: Yes - My Orders Last 24 Hours: Active Orders 24 hr Category Date Time Status Clear Liquid Diet [DIET] Diet 03/07/20 Breakfast Active Regular Diet [DIET] Diet 03/07/20 Breakfast Active CBC WITH AUTO DIFF [HEME] AM Lab 03/08/20 05:11 Ordered COMPREHENSIVE METABOLIC PN,CMP [CHEM] AM Lab 03/08/20 05:11 Ordered MAGNESIUM [CHEM] AM Lab 03/08/20 05:11 Ordered Acetaminophen [Ofirmev] 1,000 mg Med 03/06/20 15:51 Active Premix Bag 1 bag IV NOW Acetaminophen/oxyCODONE [Percocet 325-5 MG] Med 03/06/20 15:51 Active 2 tab PO Q4H PRN Albumin 5% [Buminate 5%] 250 ml Med 03/06/20 15:02 Active IV ASDIRECTED Cyclobenzaprine [Flexeril] Med 03/06/20 15:51 Active 5 mg PO TID PRN Ketorolac [Toradol] Med 03/06/20 22:00 Active 10 mg PO Q6H PRN Magnesium Sulfate/Water [Magnesium Sulfate in Water Med 03/07/20 07:53 Active Premix] 2 gm Premix Bag 1 bag IV ONETIME Medication Orders Albuterol/Ipratropium (Duoneb 3.0-0.5 Mg/3 Ml) 3 ml NEB Q4HRRT PRN PRN Reason: Shortness Of Breath/wheezing Cyclobenzaprine HCl (Flexeril) 5 mg PO TID PRN PRN Reason: Muscle Spasm Last Admin: 03/06/20 19:56 Dose: 5 mg Enoxaparin Sodium (Lovenox) 40 mg SUBCUT Q24H MARYAN Last Admin: 03/06/20 09:12 Dose: 40 mg Admin: 03/05/20 08:47 Dose: 40 mg Pantoprazole Sodium 40 mg/ (Sodium Chloride) 10 mls @ 300 mls/hr IV DAILY AMRYAN Last Admin: 03/07/20 08:09 Dose: 300 mls/hr Infusion: 03/06/20 09:14 Dose: 300 mls/hr Admin: 03/06/20 09:12 Dose: 300 mls/hr Infusion: 03/05/20 08:48 Dose: 300 mls/hr Admin: 03/05/20 08:46 Dose: 300 mls/hr Albumin Human (Buminate 5%) 250 mls @ 250 mls/hr IV ASDIRECTED PRN PRN Reason: Hypotension Acetaminophen 1,000 mg/ Premix 100 mls @ 400 mls/hr IV NOW PRN PRN Reason: Abdominal Pain Last Admin: 03/06/20 15:58 Dose: 400 mls/hr Magnesium Sulfate 2 gm/ Premix 50 mls @ 50 mls/hr IV ONETIME ONE Stop: 03/07/20 08:52 Last Admin: 03/07/20 08:09 Dose: 50 mls/hr Ketorolac Tromethamine (Toradol) 10 mg PO Q6H PRN PRN Reason: Abdominal Pain Stop: 03/11/20 22:01 Lorazepam (Ativan) 0 mg IVPUSH Q4H PRN; Protocol PRN Reason: Withdrawal Symptoms Ondansetron HCl (Zofran) 4 mg IVPUSH Q4H PRN PRN Reason: Nausea/Vomiting Oxycodone/Acetaminophen (Percocet 325-5 Mg) 2 tab PO Q4H PRN PRN Reason: Pain (severe 7-10) Last Admin: 03/07/20 08:08 Dose: 1 tab Admin: 03/07/20 03:55 Dose: 2 tab Admin: 03/06/20 23:18 Dose: 2 tab Sodium Chloride (Saline Flush) 10 ml FLUSH ASDIRECTED PRN PRN Reason: Keep Vein Open Sodium Chloride (Saline Flush) 2.5 ml FLUSH ASDIRECTED PRN PRN Reason: Keep Vein Open Sodium Chloride (Normal Saline) 10 ml IV ASDIRECTED PRN PRN Reason: IV Use - Plan Plan (Free Text/Narrative):: Patient is doing well on postop day 1. LFTs and bilirubin are within normal limits. Hemoglobin is stable. Can discontinue IV Dilaudid. Patient should use Percocet, Flexeril, and Toradol to control pain. Can advance diet to regular diet. Discontinue IV fluids. Replace electrolytes as needed. Discontinue IV antibiotics. The patient is in a cam boot on her left leg. She has a history of DVTs and stopped her [place] toe on her own. I explained her that she may be higher risk for DVTs one month after surgery. I discussed this with the medicine team. I will leave the decision up to them if they would like to start anticoagulation for the next month. If they decide not to she should take at least a baby aspirin every day. Remove dressings in 2 days. Okay to shower after that. There are Steri-Strips over her incision. She should leave these on for a week. If they follow-up before then no need to replace. No driving for 1 week. Regular diet but avoid fatty meals for one month. No lifting greater than 20 pounds for 1 month. Patient will follow-up in clinic in 2 weeks. Call with any questions or concerns.
[2020-03-07] MEDS ORDERED: Apixaban 5 MG Tab PO SCH (09:00)
[2020-03-07] MEDS: Cyclobenzaprine 5 MG Tab PO PRN (10:00)
[2020-03-07 10:46] VITALS: BP 133/88; PULSE 74
--- NOTE | 2020-03-07 11:02 | PCM.DCSUM1 ---
Discharge Summary - Hospital Course Brief History: Patient is a 49 year old female with PMH of alcohol abuse, alcohol withdrawal, DVT not on any AC, who came in to the ER with c/o of severe epigastric pain. She states her symptoms started on Thursday with generalized weakness, and decreased appetite. States this morning she was woken up with severe pain in her epigastric areawhich was radiating to her back. Her pain didnt improve so she came in to ER. Patient states that she has cut back on her alcohol consumption significantly significantly and hasn't drank in ~ 5 days although she did have a bottle of beer 2 days back. In the ER patient was fiund to be hypertensive, Lab showed that WBC count was normal but there was a predominance of neutrophils. AST and ALT were mildly elevated. Her bilirubin was 2.4. CT abdomen pelvis was read as negative, US showed cholelithiasis with a normal sized CBD and no evidence of fluid or uniform wall thickening. Surgery evlauated the patient , felt that gallbladder appeared distended on CT scan with small stones. Patient was admitted for further care Diagnosis: Stroke: No - Discharge Data Discharge Date: 03/07/20 Discharge Disposition: Home, Self-Care 01 Condition: Good - Referral to Home Health Primary Care Physician: Ryder Brewer MD - Discharge Diagnosis/Problem(s) (1) Acute cholecystitis SNOMED Code(s): 43047702 ICD Code: K81.0 - ACUTE CHOLECYSTITIS Status: Acute Current Visit: Yes (2) Cholelithiasis SNOMED Code(s): 315971212 ICD Code: K80.20 - CALCULUS OF GALLBLADDER W/O CHOLECYSTITIS W/O OBSTRUCTION Status: Acute Current Visit: Yes (3) History of alcohol abuse SNOMED Code(s): 076788763 ICD Code: F10.11 - ALCOHOL ABUSE, IN REMISSION Status: Chronic Current Visit: Yes - Patient Summary/Data Operative Procedure(s) Performed: Laparoscopic cholecystectomy Consults: Consultations 03/04/20 16:59 Consult to Physician [CONS] Routine Hospital Course: Admission diagnoses: Acute cholecystitis Discharge diagnoses: Acute cholecystitis Other pmh: Alcohol abuse Hx DVT Shakira was admitted secondary to abdominal pain, found to have concern for acute cholecystitis. She was treated with Zosyn. Dr. Waldrop was consulted, recommended MRCP. She was treated with IVFs, bowel rest. MRCP revealed acute cholecystitis, no CBD stone noted, cholelithiasis noted thought. She was taken to the OR to laparoscopic cholecystectomy. Today she is doing well, tolerating diet well and pain is well controlled. She will be discharged home today. Eliquis is recommended to be restarted due to having surgery and recent ankle fracture and DVT. She could consider lab studies to further evaluate reason for DVT. She should continue Eliquis for at least [address] Waldrop prescribed pain medications and Flexeril. Encouraged to limit Toradol due to Eliquis use and risk of bleeding. She is to continue diet and return to ED or clinic if concerns should arise. She will have followup with Dr Waldrop and PCP as scheduled. - Patient Instructions Diet: Regular Diet as Tolerated, Drink 8-10+ Glasses/Day Diet, Other: Avoid very fatty meals for one month Activity: No Lifting Over 20 Pounds (for one month ), Rest and Relax Today Driving: Do Not Drive (for one week ) Showering/Bathing: No Showering (until morning ), No Tub Bathing/ Swimming (for 2 weeks after surgery ) Wound/Incision Care: Keep Operative Site/Wound Site Clean and Dry Notify Provider of: Fever, Increased Pain, Swelling and Redness, Drainage, Nausea and/or Vomiting - Discharge Plan *PRESCRIPTION DRUG MONITORING PROGRAM REVIEWED*: Not Applicable *COPY OF PRESCRIPTION DRUG MONITORING REPORT IN PATIENT LETICIA: Not Applicable Prescriptions/Med Rec: Apixaban [Eliquis] 5 mg PO BID #1 tablet Home Medications: Home Meds Acetaminophen/oxyCODONE [Percocet 325-5 MG] 2 tab PO Q4H PRN tablet 03/07/20 [ Rx] Apixaban [Eliquis] 5 mg PO BID #1 tablet 03/07/20 [Rx] Cyclobenzaprine [Flexeril] 5 mg PO TID PRN tablet 03/07/20 [Rx] Ketorolac [Toradol] 10 mg PO Q6H PRN tablet 03/07/20 [Rx] Oxygen Therapy Mode: Room Air Patient Handouts: Cyclobenzaprine tablets, Acetaminophen; Oxycodone tablets, Cholelithiasis, [id number]-[id number], Laparoscopic Cholecystectomy, Care After, Easy-to- Read, Ketorolac tablets, Apixaban oral tablets Referrals: Grace Waldrop MD [Physician] - 03/19/20 2:00 pm Marcelo Lara MD [Physician] - 03/12/20 1:00 pm - Discharge Summary/Plan Comment DC Time >30 min.: No - Patient Data Vitals - Most Recent: Last Vital Signs Temp 98.1 F 03/07/20 08:00 Pulse 74 03/07/20 08:00 Resp 18 03/07/20 08:00 BP 133/88 03/07/20 08:00 Pulse Ox 98 03/07/20 08:00 Weight - Most Recent: 96 kg I&O - Last 24 hours: Intake & Output 03/06/20 03/07/20 03/07/20 22:59 06:59 14:59 Intake Total 5063 1948 50 Output Total 1100 1200 Balance 3963 748 50 Lab Results - Last 24 hrs: Laboratory Results - last 24 hr 03/07/20 03/07/20 Range/Units 06:04 06:04 WBC 4.75 (4.0-11.0) K/uL RBC 3.48 L (4.30-5.90) M/uL Hgb 10.0 L (12.0-16.0) g/dL Hct 31.6 L (36.0-46.0) % MCV 90.8 (80.0-98.0) fL MCH 28.7 (27.0-32.0) pg MCHC 31.6 (31.0-37.0) g/dL RDW Std Deviation 58.1 (28.0-62.0) fl RDW Coeff of Michaela 18 H (11.0-15.0) % Plt Count 165 (150-400) K/uL MPV 10.40 (7.40-12.00) fL Neut % (Auto) 74.1 (48.0-80.0) % Lymph % (Auto) 12.4 L (16.0-40.0) % [place] % (Auto) 13.3 (0.0-15.0) % Eos % (Auto) 0.2 (0.0-7.0) % Baso % (Auto) 0.0 (0.0-1.5) % Neut # (Auto) 3.5 (1.4-5.7) K/uL Lymph # (Auto) 0.6 (0.6-2.4) K/uL [place] # (Auto) 0.6 (0.0-0.8) K/uL Eos # (Auto) 0.0 (0.0-0.7) K/uL Baso # (Auto) 0.0 (0.0-0.1) K/uL Nucleated RBC % 0.0 /100WBC Nucleated RBCs # 0 K/uL Sodium 134 L (136-145) mmol/L Potassium 4.4 (3.5-5.1) mmol/L Chloride 101 (98-107) mmol/L Carbon Dioxide 25.3 (21.0-32.0) mmol/L BUN 6 L (7.0-18.0) mg/dL Creatinine 0.8 (0.6-1.0) mg/dL Est Cr Clr Drug Dosing 98.16 mL/min Estimated GFR (MDRD) > 60.0 ml/min Glucose 86 (74-106) mg/dL Calcium 8.1 L (8.5-10.1) mg/dL Magnesium 1.6 L (1.8-2.4) mg/dL Total Bilirubin 0.9 (0.2-1.0) mg/dL AST 42 H (15-37) IU/L ALT 46 (14-63) IU/L Alkaline Phosphatase 74 (46-116) U/L Total Protein 5.7 L (6.4-8.2) g/dL Albumin 2.4 L (3.4-5.0) g/dL Globulin 3.3 (2.6-4.0) g/dL Albumin/Globulin Ratio 0.7 L (0.9-1.6) Med Orders - Current: Current Medications Albuterol/Ipratropium (Duoneb 3.0-0.5 Mg/3 Ml) 3 ml NEB Q4HRRT PRN PRN Reason: Shortness Of Breath/wheezing Apixaban (Eliquis) 5 mg PO BID MARYAN Last Admin: 03/07/20 09:56 Dose: 5 mg Cyclobenzaprine HCl (Flexeril) 5 mg PO TID PRN PRN Reason: Muscle Spasm Last Admin: 03/07/20 10:00 Dose: 5 mg Pantoprazole Sodium 40 mg/ (Sodium Chloride) 10 mls @ 300 mls/hr IV DAILY [facility] Last Admin: 03/07/20 08:09 Dose: 300 mls/hr Albumin Human (Buminate 5%) 250 mls @ 250 mls/hr IV ASDIRECTED PRN PRN Reason: Hypotension Acetaminophen 1,000 mg/ Premix 100 mls @ 400 mls/hr IV NOW PRN PRN Reason: Abdominal Pain Last Admin: 03/06/20 15:58 Dose: 400 mls/hr Ketorolac Tromethamine (Toradol) 10 mg PO Q6H PRN PRN Reason: Abdominal Pain Stop: 03/11/20 22:01 Lorazepam (Ativan) 0 mg IVPUSH Q4H PRN; Protocol PRN Reason: Withdrawal Symptoms Ondansetron HCl (Zofran) 4 mg IVPUSH Q4H PRN PRN Reason: Nausea/Vomiting Oxycodone/Acetaminophen (Percocet 325-5 Mg) 2 tab PO Q4H PRN PRN Reason: Pain (severe 7-10) Last Admin: 03/07/20 08:08 Dose: 1 tab Sodium Chloride (Saline Flush) 10 ml FLUSH ASDIRECTED PRN PRN Reason: Keep Vein Open Sodium Chloride (Saline Flush) 2.5 ml FLUSH ASDIRECTED PRN PRN Reason: Keep Vein Open Sodium Chloride (Normal Saline) 10 ml IV ASDIRECTED PRN PRN Reason: IV Use Discontinued Medications Bupivacaine HCl (Marcaine 0.5%) Confirm Administered Dose 30 ml .ROUTE .STK-MED ONE Stop: 03/06/20 12:57 Dexamethasone (Dexamethasone) Confirm Administered Dose 20 mg .ROUTE .STK-MED ONE Stop: 03/06/20 12:23 Enoxaparin Sodium (Lovenox) 40 mg SUBCUT Q24H MARYAN Last Admin: 03/06/20 09:12 Dose: 40 mg Fentanyl (Fentanyl) 50 mcg IVPUSH ONETIME ONE Stop: 03/04/20 13:32 Last Admin: 03/04/20 13:35 Dose: 50 mcg Fentanyl (Fentanyl) 50 mcg IVPUSH ONETIME ONE Stop: 03/04/20 16:02 Last Admin: 03/04/20 17:55 Dose: 50 mcg Fentanyl (Sublimaze) Confirm Administered Dose 250 mcg .ROUTE .STK-MED ONE Stop: 03/06/20 12:19 Fentanyl (Sublimaze) 50 mcg IVPUSH Q5M PRN PRN Reason: Pain (severe 7-10) Stop: 03/06/20 18:00 Last Admin: 03/06/20 16:17 Dose: 50 mcg Glycopyrrolate (Robinul) Confirm Administered Dose 0.4 mg .ROUTE .STK-MED ONE Stop: 03/06/20 15:02 Hydromorphone HCl (Dilaudid) 0.5 mg IVPUSH Q2H PRN PRN Reason: Pain (severe 7-10) Last Admin: 03/05/20 03:28 Dose: 0.5 mg Hydromorphone HCl (Dilaudid) 0.5 mg IVPUSH Q2H PRN PRN Reason: Pain (severe 7-10) Last Admin: 03/07/20 01:39 Dose: 0.5 mg Magnesium Sulfate 2 gm/ Premix 50 mls @ 50 mls/hr IV ONETIME ONE Stop: 03/04/20 15:47 Last Admin: 03/04/20 14:59 Dose: 50 mls/hr Piperacillin Sod/Tazobactam (Sod 3.375 gm/ Sodium Chloride) 50 mls @ 100 mls/ hr IV ONETIME ONE Stop: 03/04/20 16:54 Last Admin: 03/04/20 17:47 Dose: 100 mls/hr Lactated Ringer's (Ringers, Lactated) 1,000 mls @ 125 mls/hr IV ASDIRECTED [facility] Last Admin: 03/07/20 01:48 Dose: 125 mls/hr Piperacillin Sod/Tazobactam (Sod 3.375 gm/ Sodium Chloride) 50 mls @ 100 mls/ hr IV Q8H [facility] Last Admin: 03/04/20 18:31 Dose: Not Given Potassium Chloride 40 meq/ (Dextrose/Lactated Ringer's) 1,020 mls @ 100 mls/hr IV ASDIRECTED [facility] Potassium Chloride 40 meq/ (Dextrose/Lactated Ringer's) 1,020 mls @ 100 mls/hr IV ONETIME ONE Stop: 03/05/20 03:11 Last Admin: 03/04/20 20:04 Dose: 100 mls/hr Piperacillin Sod/Tazobactam (Sod 3.375 gm/ Sodium Chloride) 50 mls @ 100 mls/ hr IV Q6H [facility] Last Admin: 03/07/20 05:51 Dose: 100 mls/hr Acetaminophen (Ofirmev) Confirm Administered Dose 100 mls @ as directed .ROUTE .STK-MED ONE Stop: 03/06/20 15:57 Magnesium Sulfate 2 gm/ Premix 50 mls @ 50 mls/hr IV ONETIME ONE Stop: 03/07/20 08:52 Last Admin: 03/07/20 08:09 Dose: 50 mls/hr Iopamidol (Isovue Multipack-370 (76%)) 100 ml IVPUSH ONETIME ONE Stop: 03/04/20 14:39 Last Admin: 03/04/20 14:38 Dose: 100 ml Ketorolac Tromethamine (Toradol) 30 mg IVPUSH ONETIME ONE Stop: 03/06/20 15:54 Last Admin: 03/06/20 16:01 Dose: 30 mg Lidocaine HCl (Xylocaine-Mpf 1%) Confirm Administered Dose 5 ml .ROUTE .STK-MED ONE Stop: 03/06/20 12:22 Midazolam HCl (Versed 1 Mg/Ml) Confirm Administered Dose 2 mg .ROUTE .STK-MED ONE Stop: 03/06/20 12:19 Ondansetron HCl (Zofran) Confirm Administered Dose 4 mg .ROUTE .STK-MED ONE Stop: 03/06/20 12:23 Potassium Chloride (Potassium Chloride) 60 meq PO ONETIME ONE Stop: 03/04/20 14:50 Last Admin: 03/04/20 14:58 Dose: 60 meq Propofol (Diprivan 20 Ml) Confirm Administered Dose 200 mg .ROUTE .STK-MED ONE Stop: 03/06/20 12:19 Rocuronium [place] (Zemuron) Confirm Administered Dose 100 mg .ROUTE .STK-MED ONE Stop: 03/06/20 12:22 Vasopressin (Vasopressin) Confirm Administered Dose 20 units .ROUTE .STK-MED ONE Stop: 03/06/20 14:45 - Exam General: Reports: Alert, Oriented, Cooperative, No Acute Distress Neck: Reports: Supple Lungs: Reports: Clear to Auscultation, Normal Respiratory Effort Cardiovascular: Reports: Regular Rate, Regular Rhythm GI/Abdominal Exam: Normal Bowel Sounds, Soft, Non-Tender, Other (4 lap sites noted) Extremities: Normal Inspection, Normal Range of Motion, Non-Tender, No Pedal Edema, Other (boot to L lower extremity) Neurological: Reports: No New Focal Deficit Psy/Mental Status: Reports: Alert, Normal Affect, Normal Mood. Denies: Withdrawal Symptoms
--- NOTE | 2020-03-08 08:45 | OR ---
SURGEON: GRACE FAN MD DATE OF PROCEDURE: 03/06/2020 PREOPERATIVE DIAGNOSIS: Acute cholecystitis. POSTOPERATIVE DIAGNOSIS: Acute cholecystitis. PROCEDURE PERFORMED: Laparoscopic cholecystectomy. PRIMARY SURGEON: Grace Fan MD ANESTHESIA: General endotracheal anesthesia. FLUIDS: 1800 mL of crystalloid. ESTIMATED BLOOD LOSS: 30 mL. URINE OUTPUT: 550 mL. FINDINGS: Grossly inflamed and enlarged gallbladder consistent with acute cholecystitis. A large amount of edematous tissue around the gallbladder itself. The gallbladder contained sludge like dark bile. COMPLICATIONS: None. INDICATIONS: The patient is a 49-year-old female who presented to the hospital two days ago with sharp epigastric pain. Workup revealed a mild elevation in the patient's LFTs and bilirubin. CT scan showed a distended appearing gallbladder. Ultrasound confirmed cholelithiasis. There were no signs of choledocholithiasis. She was admitted to the Medicine team. An MRCP was performed the next day, which showed changes consistent with acute cholecystitis, but no evidence of any choledocholithiasis. Her LFTs improved and are now within normal limits. The decision was made to proceed to the operating room for laparoscopic, possible open, cholecystectomy. I explained the procedure, expected perioperative course, and the risks. The patient verbalized understanding and wishes to proceed. PROCEDURE IN DETAIL: The patient was brought into the OR and placed on the OR table in supine position. A time-out was completed verifying the patient's name, age, date of , allergies, and procedure to be performed. General endotracheal anesthesia was induced. The bilateral upper arms were tucked to the patient's side and a Han catheter placed. The abdomen was prepped and draped in usual standard fashion. I anesthetized the infraumbilical fold with 0.5% Marcaine plain. An 11 blade was used to make an incision along the infraumbilical fold. Cautery was used to dissect down to the level of subcutaneous fat. I bluntly dissected down to the fascia. The fascia was elevated with Sarah's and incised sharply with curved Borges scissors. I then identified the rectus muscles. These were along the midline. I grasped the posterior sheath and incised it sharply with the Metzenbaum scissors. I then identified the peritoneum. The peritoneum was elevated with Karen clamp and incised sharply with Metzenbaum scissors. Just below this was small bowel. I swept the small bowel away, but closely inspected it first. There appeared to be no damage to that area. A 12 mm Heath trocar was placed into the abdomen and the abdomen was insufflated. I then placed a 5 mm 30-degree scope inside. I inspected a piece of bowel that was immediately underneath my incision site. The bowel there appeared intact with no evidence of trauma. The patient was placed into reverse Trendelenburg position and airplaned slightly to the left. I placed 5 mm trocars under direct visualization in the following locations; one in the epigastric area, one in the right flank, and one 2 fingerbreadths below the right subcostal margin in the midclavicular line. The gallbladder appeared grossly inflamed and distended. The gallbladder wall was not severely thickened, however, and I was able to grasp it with an atraumatic grasper and lift it cranially. The infundibulum was identified. This was grasped with another atraumatic grasper and manipulated to allow dissection along the proximal one-third of the gallbladder itself. The peritoneal attachments around the gallbladder were very edematous. I was able to easily take these down using a [place] dissector, blunt dissection with a Kittner, and limited hook cautery. I dissected free both my cystic duct and artery. I then dissected one-third of the cystic plate. During my dissection, I identified the node of [place] overlying the cystic artery. When my critical view was achieved, a photograph was taken. I then doubly clipped and ligated my cystic duct and artery. I then began the dissection along the gallbladder fossa to separate the gallbladder from its liver attachments. The area was very inflamed with a large amount of edema. Using hook cautery as well as blunt dissection, I was able to separate the structures. There were some dilated veins that I doubly clipped and ligated to prevent bleeding. I was able to then remove the gallbladder safely and completely from the liver bed. It was placed in an Endo Catch bag and removed through the infraumbilical port site. My 12 mm Heath trocar was placed back into the abdomen. During my initial dissection, a small rent was made in the wall of the gallbladder. Bile was spilled into the abdomen. The bile appeared sludge like. I noticed only one or two very sandlike stones. I irrigated the abdomen with 2 L of normal saline and suctioned this out. I then inspected my operative field. The clips appeared to be in good position with no evidence of bleeding or bile leakage. The liver bed appeared to be hemostatic. I then removed my 5 mm trocars under direct visualization and allowed the abdomen to desufflate. The 12 mm trocar was removed as well. I closed my fascia at the infraumbilical port site with interrupted 0 Vicryl sutures. The subcutaneous fat layer was closed with layers of 3-0 Vicryl suture. The skin was closed with a running 4-0 Monocryl stitch. My 5 mm trocar sites were closed with interrupted 4-0 Monocryl suture. Steri- Strips and sterile dressings were applied. The patient tolerated the procedure well and was transferred to the PACU in stable condition. All counts were complete and correct at the end of the case. ALEKSANDER MORALES /[id number]
== END 2020-03-07 11:50 | disposition home or self-care (01) | DRG 263 ==
LOC: MW.ED 13:09 → MW.MS 16:30 → OBSVTOIN 03-05 11:32 → MW.MS 03-05 11:33
PROVIDERS: ADMIT Student in an Organized Health Care Education/Training Program; ATTEND Student in an Organized Health Care Education/Training Program
PROC: 0FT44ZZ Resection of Gallbladder, Percutaneous Endoscopic Approach (ICD-10-PCS; principal; 2020-03-06)
DX: K80.00 Calculus of gallbladder with acute cholecystitis without obstruction (principal); F10.11 Alcohol abuse, in remission; G89.29 Other chronic pain; M54.9 Dorsalgia, unspecified; F41.9 Anxiety disorder, unspecified; F32.9 Major depressive disorder, single episode, unspecified; Z86.718 Personal history of other venous thrombosis and embolism; Z79.01 Long term (current) use of anticoagulants; Z90.89 Acquired absence of other organs; Z90.49 Acquired absence of other specified parts of digestive tract; Z98.51 Tubal ligation status
CPT/HCPCS: 00790; 36415; 74177; 74177-26; 74181; 74181-26; 76700; 76700-26; 80053; 83690; 83735; 84100; 84484; 84703; 85025; 86850; 86900; 86901; 88304; 93005; 96361; 96365; 96367; 96372; 96375; 96376; 99284; 99285-25; A9270-GY; C9113; G0378; J0131; J0330; J1100; J1170; J1650; J1885; J2001; J2250; J2405; J2543; J2704; J3010; J3475; J3480; J3490; J7050; J7120; J7121; Q9967; U0002

== ENCOUNTER 2020-06-01 09:55 | Observation (INO) | payer BC ==
[2020-06-01] MEDS ORDERED: Sodium Chloride 0.9% 1,000 ML IV ONE (10:07)
[2020-06-01] MEDS ORDERED: Sodium Chloride 0.9% 10 ML Syringe FLUSH PRN (10:07)
[2020-06-01] MEDS ORDERED: Aspirin 81 MG Tab.Chew PO ONE (10:07)
[2020-06-01] MEDS ORDERED: Sodium Chloride 0.9% 2.5 ML Syringe FLUSH PRN (10:07)
--- NOTE | 2020-06-01 10:20 | EDM.PDOC ---
ED HPI GENERAL MEDICAL PROBLEM - General Chief Complaint: Chest Pain Stated Complaint: SOB AND CHEST PAIN Time Seen by Provider: 06/01/20 10:00 Source of Information: Reports: Patient - History of Present Illness INITIAL COMMENTS - FREE TEXT/NARRATIVE: History of present illness: 49-year-old female presenting with chest pain and difficulty breathing for the last 4 to 5 days. She reports that she has had a pressure feeling in her lower chest and upper abdomen/epigastric area and some mild difficulty breathing somewhat constantly over the last 4 to 5 days. No cough. No fever. She has had some dizziness as well including yesterday when she tried to take a shower she could barely even take the full shower due to dizziness. She has had some ongoing nausea for which she saw her primary care physician a few days ago and had CT scan but no etiology was found. She does report she has had some difficulty keeping down food, fluids and any medications although this morning she was able to take her antiemetic, Tylenol and ibuprofen and some ice cream. She had a cholecystectomy in February 2020 and she reports symptoms similar to the nausea prior to a cholecystectomy as well. No significant cardiac risk factors but she does report a remote history of DVT 1 year ago, for which she was on 6 months of anticoagulation. She also reports somewhat chronic numbness over her anterior abdomen and back radiating all the way down to her legs for at least the last few months for which she had an MRI and no etiology was found as of yet. Review of systems: As per history of present illness and below otherwise all systems reviewed and negative. Past medical history: As per history of present illness and as reviewed below otherwise noncontributory. Alcohol withdrawal, DVT, anxiety, chronic back pain, Surgical history: As per history of present illness and as reviewed below otherwise noncontributory. Cholecystectomy, tubal ligation, back surgery, appendectomy Social history: No reported history of drug abuse, does have history of alcohol abuse and withdrawal, never smoker Family history: As per history of present illness and as reviewed below otherwise noncontributory. Physical exam: GEN: no acute distress, well appearing HEENT: Atraumatic, normocephalic, mucous membranes moist, Neck: supple. Lungs: No respiratory distress. Heart: RRR Abdomen: Soft, nondistended, nontender. Pain located in the epigastrium but no tenderness at the site and she has no tenderness in the right upper quadrant, no rebound or guarding on abdominal exam. Back: nontender Extremities: Atraumatic. Neurovascularly intact. Neuro: Awake, alert, oriented. Neuro Exam nonfocal. Skin: warm, dry, no lesions Psych: Appears anxious, slightly tearful, reports is been a very difficult year for her. Otherwise mood and affect normal Diagnostics: Labs, EKG, CT angios chest Therapeutics: Aspirin MDM: Impression: [] Plan: [] Definitive disposition and diagnosis as appropriate pending reevaluation and r yenny of above. Chest pain Pain Score (Numeric/FACES): 8 - Related Data Allergies Allergy/AdvReac Type Severity Reaction Status Date / Time No Known Allergies Allergy Verified 06/01/20 10:05 Home Meds: Home Meds Acetaminophen/oxyCODONE [Percocet 325-5 MG] 2 tab PO Q4H PRN tablet 03/07/20 [Rx] Apixaban [Eliquis] 5 mg PO BID #1 tablet 03/07/20 [Rx] Cyclobenzaprine [Flexeril] 5 mg PO TID PRN tablet 03/07/20 [Rx] Ketorolac [Toradol] 10 mg PO Q6H PRN tablet 03/07/20 [Rx] Nitrofurantoin Monohyd/M-Cryst [Macrobid 100 mg Capsule] 1 dose .ROUTE DAILY 06/01/20 [History] Ondansetron [Ondansetron ODT] 1 dose .ROUTE Q4HR PRN 06/01/20 [History] Past Medical History - Past Health History Medical/Surgical History: Denies Medical/Surgical History HEENT History: Reports: None Cardiovascular History: Reports: Blood Clots/VTE/DVT Respiratory History: Reports: None Gastrointestinal History: Reports: None Genitourinary History: Reports: None [employer] History: Reports: Musculoskeletal History: Reports: Back Pain, Chronic Neurological History: Reports: None Psychiatric History: Reports: Anxiety, Other (See Below) Other Psychiatric History: anxiety after of brother Endocrine/Metabolic History: Reports: None Hematologic History: Reports: None Immunologic History: Reports: None Oncologic (Cancer) History: Reports: None Dermatologic History: Reports: None - Infectious Disease History Infectious Disease History: Reports: Chicken Pox - Past Surgical History Head Surgeries/Procedures: Reports: None HEENT Surgical History: Reports: Tonsillectomy Cardiovascular Surgical History: Reports: None Respiratory Surgical History: Reports: None GI Surgical History: Reports: Appendectomy Female Surgical History: Reports: Tubal Ligation Endocrine Surgical History: Reports: None Neurological Surgical History: Reports: None Musculoskeletal Surgical History: Reports: Other (See Below) Other Musculoskeletal Surgeries/Procedures:: had back surgery with rods/pins Oncologic Surgical History: Reports: None Dermatological Surgical History: Reports: None Social & Family History - Family History Family Medical History: Noncontributory Oncologic: Reports: Brain - Caffeine Use Caffeine Use: Reports: None ED ROS GENERAL - Review of Systems Review Of Systems: See Below (See HPI) ED EXAM, GENERAL - Physical Exam Exam: See Below (See HPI) EKG INTERPRETATION EKG Interpretation Comments: EKG performed today at 10:02 AM, sinus rhythm, rate 78, low voltage over precordial leads, mild wander, no acute ischemia, no STEMI, QTC 455. EKG independently interpreted by me. Course - Vital Signs Text/Narrative:: Chest pain and difficulty breathing. Differential diagnosis: Angina, ACS, pulmonary embolism, aortic dissection, ga stritis, GERD, pancreatitis, costochondritis, pain postoperatively from cholecystectomy Heart score:3 Wells criteria: 1.5, patient low risk: history of DVT, surgery 3 months ago. PERC negative. Therefore will perform ddimer. D-dimer was negative. However chest x-ray showed pulmonary nodule and radiology recommending CT scan for further characterization. Therefore CT scan was ordered with angio contrast to evaluate also for pulmonary embolism. No PE seen on CT and no pulmonary nodule. No other acute abnormality. Patient having ongoing chest pain with concerning type symptoms, continuing to have pain as a pressure/heaviness sensation. Electrolyte abnormalities with hypokalemia and hypomagnesemia. Will admit Last Recorded V/S: Last Vital Signs Temp 96.7 F L 06/01/20 10:02 Pulse 81 06/01/20 13:00 Resp 16 06/01/20 13:00 BP 158/101 H 06/01/20 15:10 Pulse Ox 100 06/01/20 13:00 - Orders/Labs/Meds Orders: Active Orders 24 hr Category Date Time Status Patient Status [ADT] Routine ADT 06/01/20 15:24 Active EKG Documentation Completion [RC] STAT Care 06/01/20 10:12 Active CORONAVIRUS COVID-19 SHABANA [MOLEC] Stat Lab 06/01/20 15:12 Received Sodium Chloride 0.9% [Saline Flush] Med 06/01/20 10:07 Active 10 ml FLUSH ASDIRECTED PRN Sodium Chloride 0.9% [Saline Flush] Med 06/01/20 10:07 Active 2.5 ml FLUSH ASDIRECTED PRN Saline Lock Insert [OM.PC] Stat Oth 06/01/20 10:11 Ordered Medication Orders Acetaminophen (Tylenol) 650 mg PO Q4H PRN PRN Reason: Pain (Mild 1-3)/fever Albuterol/Ipratropium (Duoneb 3.0-0.5 Mg/3 Ml) 3 ml NEB Q4HRRT PRN PRN Reason: Shortness Of Breath/wheezing Morphine Sulfate (Morphine) 1 mg IVPUSH Q2H PRN PRN Reason: Pain (severe 7-10) Stop: 06/02/20 15:52 Ondansetron HCl (Zofran) 4 mg IVPUSH Q4H PRN PRN Reason: Nausea/Vomiting Sodium Chloride (Saline Flush) 10 ml FLUSH ASDIRECTED PRN PRN Reason: Keep Vein Open Last Admin: 06/01/20 10:24 Dose: 10 ml Documented by: TIFFANY Sodium Chloride (Saline Flush) 2.5 ml FLUSH ASDIRECTED PRN PRN Reason: Keep Vein Open Last Admin: 06/01/20 10:24 Dose: 2.5 ml Documented by: TIFFANY Labs: Laboratory Tests 06/01/20 06/01/20 06/01/20 Range/Units 10:20 10:20 10:20 WBC 3.22 L (4.0-11.0) K/uL RBC 4.02 L (4.30-5.90) M/uL Hgb 11.6 L (12.0-16.0) g/dL Hct 36.5 (36.0-46.0) % MCV 90.8 (80.0-98.0) fL MCH 28.9 (27.0-32.0) pg MCHC 31.8 (31.0-37.0) g/dL RDW Std Deviation 66.4 H (28.0-62.0) fl RDW Coeff of Michaela 20 H (11.0-15.0) % Plt Count 157 (150-400) K/uL MPV 9.80 (7.40-12.00) fL Neut % (Auto) 63.4 (48.0-80.0) % Lymph % (Auto) 19.9 (16.0-40.0) % [place] % (Auto) 15.8 H (0.0-15.0) % Eos % (Auto) 0.6 (0.0-7.0) % Baso % (Auto) 0.3 (0.0-1.5) % Neut # (Auto) 2.0 (1.4-5.7) K/uL Lymph # (Auto) 0.6 (0.6-2.4) K/uL [place] # (Auto) 0.5 (0.0-0.8) K/uL Eos # (Auto) 0.0 (0.0-0.7) K/uL Baso # (Auto) 0.0 (0.0-0.1) K/uL Nucleated RBC % 0.0 /100WBC Nucleated RBCs # 0 K/uL INR 1.08 D-Dimer, Quantitative (0.0-0.50) mg/L FEU Sodium 135 L (136-145) mmol/L Potassium 3.0 L (3.5-5.1) mmol/L Chloride 99 (98-107) mmol/L Carbon Dioxide 21.7 (21.0-32.0) mmol/L BUN 7 (7.0-18.0) mg/dL Creatinine 1.2 H (0.6-1.0) mg/dL Est Cr Clr Drug Dosing 65.44 mL/min Estimated GFR (MDRD) 47.7 ml/min Glucose 91 (74-106) mg/dL Calcium 8.3 L (8.5-10.1) mg/dL Magnesium 1.3 L (1.8-2.4) mg/dL Total Bilirubin 1.0 (0.2-1.0) mg/dL AST 73 H (15-37) IU/L ALT 43 (14-63) IU/L Alkaline Phosphatase 69 (46-116) U/L Troponin I < 0.050 (0.000-0.056) ng/mL B-Natriuretic Peptide (<100) PG/ML Total Protein 6.1 L (6.4-8.2) g/dL Albumin 2.8 L (3.4-5.0) g/dL Globulin 3.3 (2.6-4.0) g/dL Albumin/Globulin Ratio 0.9 (0.9-1.6) Lipase 166 (73-393) U/L TSH 3rd Generation 1.05 (0.36-3.74) uIU/mL HCG, Qual (NEG) 06/01/20 06/01/20 06/01/20 Range/Units 10:20 10:20 10:20 WBC (4.0-11.0) K/uL RBC (4.30-5.90) M/uL Hgb (12.0-16.0) g/dL Hct (36.0-46.0) % MCV (80.0-98.0) fL MCH (27.0-32.0) pg MCHC (31.0-37.0) g/dL RDW Std Deviation (28.0-62.0) fl RDW Coeff of Michaela (11.0-15.0) % Plt Count (150-400) K/uL MPV (7.40-12.00) fL Neut % (Auto) (48.0-80.0) % Lymph % (Auto) (16.0-40.0) % [place] % (Auto) (0.0-15.0) % Eos % (Auto) (0.0-7.0) % Baso % (Auto) (0.0-1.5) % Neut # (Auto) (1.4-5.7) K/uL Lymph # (Auto) (0.6-2.4) K/uL [place] # (Auto) (0.0-0.8) K/uL Eos # (Auto) (0.0-0.7) K/uL Baso # (Auto) (0.0-0.1) K/uL Nucleated RBC % /100WBC Nucleated RBCs # K/uL INR D-Dimer, Quantitative 0.46 (0.0-0.50) mg/L FEU Sodium (136-145) mmol/L Potassium (3.5-5.1) mmol/L Chloride (98-107) mmol/L Carbon Dioxide (21.0-32.0) mmol/L BUN (7.0-18.0) mg/dL Creatinine (0.6-1.0) mg/dL Est Cr Clr Drug Dosing mL/min Estimated GFR (MDRD) ml/min Glucose (74-106) mg/dL Calcium (8.5-10.1) mg/dL Magnesium (1.8-2.4) mg/dL Total Bilirubin (0.2-1.0) mg/dL AST (15-37) IU/L ALT (14-63) IU/L Alkaline Phosphatase (46-116) U/L Troponin I (0.000-0.056) ng/mL B-Natriuretic Peptide 80 (<100) PG/ML Total Protein (6.4-8.2) g/dL Albumin (3.4-5.0) g/dL Globulin (2.6-4.0) g/dL Albumin/Globulin Ratio (0.9-1.6) Lipase (73-393) U/L TSH 3rd Generation (0.36-3.74) uIU/mL HCG, Qual NEGATIVE (NEG) 06/01/20 Range/Units 14:10 WBC (4.0-11.0) K/uL RBC (4.30-5.90) M/uL Hgb (12.0-16.0) g/dL Hct (36.0-46.0) % MCV (80.0-98.0) fL MCH (27.0-32.0) pg MCHC (31.0-37.0) g/dL RDW Std Deviation (28.0-62.0) fl RDW Coeff of Michaela (11.0-15.0) % Plt Count (150-400) K/uL MPV (7.40-12.00) fL Neut % (Auto) (48.0-80.0) % Lymph % (Auto) (16.0-40.0) % [place] % (Auto) (0.0-15.0) % Eos % (Auto) (0.0-7.0) % Baso % (Auto) (0.0-1.5) % Neut # (Auto) (1.4-5.7) K/uL Lymph # (Auto) (0.6-2.4) K/uL [place] # (Auto) (0.0-0.8) K/uL Eos # (Auto) (0.0-0.7) K/uL Baso # (Auto) (0.0-0.1) K/uL Nucleated RBC % /100WBC Nucleated RBCs # K/uL INR D-Dimer, Quantitative (0.0-0.50) mg/L FEU Sodium (136-145) mmol/L Potassium (3.5-5.1) mmol/L Chloride (98-107) mmol/L Carbon Dioxide (21.0-32.0) mmol/L BUN (7.0-18.0) mg/dL Creatinine (0.6-1.0) mg/dL Est Cr Clr Drug Dosing mL/min Estimated GFR (MDRD) ml/min Glucose (74-106) mg/dL Calcium (8.5-10.1) mg/dL Magnesium (1.8-2.4) mg/dL Total Bilirubin (0.2-1.0) mg/dL AST (15-37) IU/L ALT (14-63) IU/L Alkaline Phosphatase (46-116) U/L Troponin I < 0.050 (0.000-0.056) ng/mL B-Natriuretic Peptide (<100) PG/ML Total Protein (6.4-8.2) g/dL Albumin (3.4-5.0) g/dL Globulin (2.6-4.0) g/dL Albumin/Globulin Ratio (0.9-1.6) Lipase (73-393) U/L TSH 3rd Generation (0.36-3.74) uIU/mL HCG, Qual (NEG) Meds: Medications Generic Name Dose Route Start Last Admin Trade Name Freq PRN Reason Stop Dose Admin Acetaminophen 650 mg 06/01/20 15:50 Tylenol PO Q4H PRN Pain (Mild 1-3)/fever Albuterol/Ipratropium 3 ml 06/01/20 15:50 Duoneb 3.0-0.5 Mg/3 Ml NEB Q4HRRT PRN Shortness Of Breath/wheezing Morphine Sulfate 1 mg 06/01/20 15:50 Morphine IVPUSH 06/02/20 15:52 Q2H PRN Pain (severe 7-10) Ondansetron HCl 4 mg 06/01/20 15:50 Zofran IVPUSH Q4H PRN Nausea/Vomiting Sodium Chloride 10 ml 06/01/20 10:07 06/01/20 10:24 Saline Flush FLUSH 10 ml ASDIRECTED PRN Administration Keep Vein Open Sodium Chloride 2.5 ml 06/01/20 10:07 06/01/20 10:24 Saline Flush FLUSH 2.5 ml ASDIRECTED PRN Administration Keep Vein Open Discontinued Medications Generic Name Dose Route Start Last Admin Trade Name Maxx PRN Reason Stop Dose Admin Aspirin 324 mg 06/01/20 10:07 06/01/20 10:23 Aspirin PO 06/01/20 10:08 324 mg ONETIME ONE Administration Al Hydroxide/Mg Hydroxide 15 0 ml 06/01/20 14:17 06/01/20 15:09 ml/ Lidocaine HCl 5 ml PO 06/01/20 14:18 20 each ONETIME ONE Administration Sodium Chloride 1,000 mls @ 999 mls/hr 06/01/20 10:07 06/01/20 10:23 Normal Saline IV 06/01/20 11:07 999 mls/hr .Bolus ONE Administration Magnesium Sulfate 2 gm/ Premix 50 mls @ 50 mls/hr 06/01/20 11:30 06/01/20 11:29 IV 06/01/20 12:29 50 mls/hr ONETIME ONE Administration Pantoprazole Sodium 40 mg/ 10 mls @ 300 mls/hr 06/01/20 15:50 Sodium Chloride IV 06/01/20 15:51 ONETIME ONE Morphine Sulfate 4 mg 06/01/20 14:17 06/01/20 15:09 Morphine IVPUSH 06/01/20 14:18 4 mg ONETIME ONE Administration Nitroglycerin 0.4 mg 06/01/20 14:18 06/01/20 15:10 Nitrostat SL 06/01/20 14:19 0.4 mg ONETIME ONE Administration Potassium Chloride 40 meq 06/01/20 11:15 06/01/20 11:29 Potassium Chloride PO 06/01/20 11:16 40 meq ONETIME ONE Administration - Re-Assessments/Exams Free Text/Narrative Re-Assessment/Exam: 06/01/20 14:15 I reassessed the patient. I discussed all results with the patient. Discussed CT results with the patient. She does report that she is still having pain although she is in no acute distress. She still feels that pressure sensation over the center of her chest. We discussed her cardiac risk factors. She does not have any family history of young cardiac disease but multiple family members have hypertension. As her pain is ongoing we will attempt additional pain control measures but will plan to admit the patient for cardiac rule out. Repeat troponin has been drawn and is pending. 06/01/20 15:22 Dr Rivera called back, we discussed the case, she agrees with plan to admission, accepts admission and request to place patient under observation/telemetry. Departure - Departure Time of Disposition: 15:23 Disposition: Refer to Observation Clinical Impression: Chest pain Sepsis Event Note (ED) - Evaluation Sepsis Screening Result: No Definite Risk - Focused Exam Vital Signs: Vital Signs Temp Pulse Resp BP BP Pulse Ox 06/01/20 15:10 158/101 H 06/01/20 13:00 81 16 100 06/01/20 12:51 81 16 149/95 H 99 06/01/20 11:21 74 16 131/92 H 100 06/01/20 10:02 96.7 F L 94 16 121/71 99 - My Orders Last 24 Hours: My Active Orders 06/01/20 10:07 Sodium Chloride 0.9% [Saline Flush] 10 ml FLUSH ASDIRECTED PRN Sodium Chloride 0.9% [Saline Flush] 2.5 ml FLUSH ASDIRECTED PRN 06/01/20 10:11 Saline Lock Insert [OM.PC] Stat 06/01/20 10:12 EKG Documentation Completion [RC] STAT 06/01/20 15:12 CORONAVIRUS COVID-19 SHABANA [MOLEC] Stat 06/01/20 15:24 Patient Status [ADT] Routine - Assessment/Plan Last 24 Hours: My Active Orders 06/01/20 10:07 Sodium Chloride 0.9% [Saline Flush] 10 ml FLUSH ASDIRECTED PRN Sodium Chloride 0.9% [Saline Flush] 2.5 ml FLUSH ASDIRECTED PRN 06/01/20 10:11 Saline Lock Insert [OM.PC] Stat 06/01/20 10:12 EKG Documentation Completion [RC] STAT 06/01/20 15:12 CORONAVIRUS COVID-19 SHABANA [MOLEC] Stat 06/01/20 15:24 Patient Status [ADT] Routine
[2020-06-01 11:06] LABS: BLOOD UREA NITROGEN,BUN 7 mg/dL (7.0-18.0); CARBON DIOXIDE,CO2 21.7 mmol/L (21.0-32.0); CHLORIDE,CL 99 mmol/L (98-107); GLUCOSE RANDOM 91 mg/dL (74-106); LIPASE 166 U/L (73-393); SODIUM,NA 135 mmol/L (136-145)
--- NOTE | 2020-06-01 11:08 | CR ---
Chest: 2 views of the chest were obtained. Comparison: Prior chest x-ray of 11/09/19. Heart size and mediastinum are normal. Questionable nodule overlying the anterior right third rib. Lungs otherwise are clear. Heart size and mediastinum are normal. Scattered disc space narrowing and endplate spurring is noted within the spine with mild scoliosis. Impression: 1. Questionable small nodule within the upper right lung. Consider noncontrast chest CT to hopefully exclude this possibility. 2. Other findings as noted above. 3. Nothing acute is otherwise seen. Diagnostic code #9 This report was dictated in MDT
[2020-06-01] MEDS ORDERED: Magnesium Sulfate (4.06 MEQ/ML) 5 GM/10 ML SDV IV ONE (11:15)
[2020-06-01] MEDS ORDERED: Potassium Chloride 10% 20 MEQ/15 ML Soln 30 ML UD Cup PO ONE (11:15)
[2020-06-01] MEDS ORDERED: Magnesium Sulfate/Water 2 GM in Premix Bag 1 BAG IV ONE (11:30)
--- NOTE | 2020-06-01 13:49 | CT ---
CT chest Technique: Multiple axial sections through the chest were obtained. Intravenous contrast was utilized. Study has been performed as a pulmonary angiogram protocol. Comparison: Prior chest x-ray performed earlier on the same day (10:39 AM). Findings: Pulmonary arteries are well opacified. No filling defects are seen to indicate pulmonary embolism. Aorta shows no aneurysm. Mediastinum and hilar regions show no adenopathy. No pericardial thickening is seen. Visualized upper abdominal structures showed no discrete abnormality. Lung window settings shows no acute parenchymal change within either lung. No pulmonary nodule is identified as suggested on recent chest x-ray. Bone window settings were reviewed. No acute osseous finding is seen. Scattered endplate osteophytes are seen within the mid and lower thoracic spine. Impression: 1. No findings of pulmonary embolism. 2. No nodule seen within the chest as suggested on chest x-ray. Chest x-ray finding is therefore felt to be artifact. 3. Nothing acute is seen. Diagnostic code #2 This report was dictated in MDT
[2020-06-01] MEDS ORDERED: Morphine 4 MG/ML Syringe IVPUSH ONE (14:17)
[2020-06-01] MEDS ORDERED: Alum Hydrox/Mag Hydrox/Simeth 15 ML, Lidocaine 2% 5 ML PO ONE ×2 (14:17)
[2020-06-01] MEDS ORDERED: Nitroglycerin 0.4 MG Tab.SL SL ONE (14:18)
[2020-06-01] MEDS ORDERED: Morphine 10 MG/ML Syringe IVPUSH PRN (15:50)
[2020-06-01] MEDS ORDERED: Acetaminophen 325 MG Tab PO PRN (15:50)
[2020-06-01] MEDS ORDERED: Ondansetron 4 MG/2 ML SDV IVPUSH PRN (15:50)
[2020-06-01] MEDS ORDERED: Albuterol/Ipratropium 3.0-0.5 MG/3 ML Neb Soln NEB PRN (15:50)
[2020-06-01] MEDS ORDERED: Pantoprazole 40 MG in Sodium Chloride 0.9% 10 ML IV ONE (15:50)
[2020-06-01] MEDS ORDERED: Magnesium Oxide 400 MG Tab PO ONE (15:59)
[2020-06-01] MEDS ORDERED: LORazepam 2 MG/ML SDV IVPUSH PRN (16:06)
--- NOTE | 2020-06-01 16:43 | PCM.HP.2 ---
H&P History of Present Illness - General Date of Service: 06/01/20 Admit Problem/Dx: Admission Diagnosis/Problem Admission Diagnosis/Problem Chest pain Chest pain Pain Score (Numeric/FACES): 8 - Related Data Allergies/Adverse Reactions: Allergies Allergy/AdvReac Type Severity Reaction Status Date / Time No Known Allergies Allergy Verified 06/01/20 10:05 Home Medications: Home Meds Acetaminophen/oxyCODONE [Percocet 325-5 MG] 2 tab PO Q4H PRN tablet 03/07/20 [Rx] Apixaban [Eliquis] 5 mg PO BID #1 tablet 03/07/20 [Rx] Cyclobenzaprine [Flexeril] 5 mg PO TID PRN tablet 03/07/20 [Rx] Ketorolac [Toradol] 10 mg PO Q6H PRN tablet 03/07/20 [Rx] Nitrofurantoin Monohyd/M-Cryst [Macrobid 100 mg Capsule] 1 dose .ROUTE DAILY 06/01/20 [History] Ondansetron [Ondansetron ODT] 1 dose .ROUTE Q4HR PRN 06/01/20 [History] Past Medical History - Past Health History Medical/Surgical History: Denies Medical/Surgical History HEENT History: Reports: None Cardiovascular History: Reports: Blood Clots/VTE/DVT Respiratory History: Reports: None Gastrointestinal History: Reports: None Genitourinary History: Reports: None [employer] History: Reports: Musculoskeletal History: Reports: Back Pain, Chronic Neurological History: Reports: None Psychiatric History: Reports: Anxiety, Other (See Below) Other Psychiatric History: anxiety after of brother Endocrine/Metabolic History: Reports: None Hematologic History: Reports: None Immunologic History: Reports: None Oncologic (Cancer) History: Reports: None Dermatologic History: Reports: None - Infectious Disease History Infectious Disease History: Reports: Chicken Pox - Past Surgical History Head Surgeries/Procedures: Reports: None HEENT Surgical History: Reports: Tonsillectomy Cardiovascular Surgical History: Reports: None Respiratory Surgical History: Reports: None GI Surgical History: Reports: Appendectomy Female Surgical History: Reports: Tubal Ligation Endocrine Surgical History: Reports: None Neurological Surgical History: Reports: None Musculoskeletal Surgical History: Reports: Other (See Below) Other Musculoskeletal Surgeries/Procedures:: had back surgery with rods/pins Oncologic Surgical History: Reports: None Dermatological Surgical History: Reports: None Social & Family History - Family History Family Medical History: Noncontributory Oncologic: Reports: Brain - Caffeine Use Caffeine Use: Reports: None Exam - Vital Signs Vital Signs: Last Vital Signs Temp 96.7 F L 06/01/20 10:02 Pulse 81 06/01/20 13:00 Resp 16 06/01/20 13:00 BP 158/101 H 06/01/20 15:10 Pulse Ox 100 06/01/20 13:00 Weight: 200 lb - Patient Data Lab Results Last 24 hrs: Laboratory Results - last 24 hr 06/01/20 06/01/20 06/01/20 Range/Units 10:20 10:20 10:20 WBC 3.22 L (4.0-11.0) K/uL RBC 4.02 L (4.30-5.90) M/uL Hgb 11.6 L (12.0-16.0) g/dL Hct 36.5 (36.0-46.0) % MCV 90.8 (80.0-98.0) fL MCH 28.9 (27.0-32.0) pg MCHC 31.8 (31.0-37.0) g/dL RDW Std Deviation 66.4 H (28.0-62.0) fl RDW Coeff of Michaela 20 H (11.0-15.0) % Plt Count 157 (150-400) K/uL MPV 9.80 (7.40-12.00) fL Neut % (Auto) 63.4 (48.0-80.0) % Lymph % (Auto) 19.9 (16.0-40.0) % [place] % (Auto) 15.8 H (0.0-15.0) % Eos % (Auto) 0.6 (0.0-7.0) % Baso % (Auto) 0.3 (0.0-1.5) % Neut # (Auto) 2.0 (1.4-5.7) K/uL Lymph # (Auto) 0.6 (0.6-2.4) K/uL [place] # (Auto) 0.5 (0.0-0.8) K/uL Eos # (Auto) 0.0 (0.0-0.7) K/uL Baso # (Auto) 0.0 (0.0-0.1) K/uL Nucleated RBC % 0.0 /100WBC Nucleated RBCs # 0 K/uL INR 1.08 D-Dimer, Quantitative (0.0-0.50) mg/L FEU Sodium 135 L (136-145) mmol/L Potassium 3.0 L (3.5-5.1) mmol/L Chloride 99 (98-107) mmol/L Carbon Dioxide 21.7 (21.0-32.0) mmol/L BUN 7 (7.0-18.0) mg/dL Creatinine 1.2 H (0.6-1.0) mg/dL Est Cr Clr Drug Dosing 65.44 mL/min Estimated GFR (MDRD) 47.7 ml/min Glucose 91 (74-106) mg/dL Calcium 8.3 L (8.5-10.1) mg/dL Magnesium 1.3 L (1.8-2.4) mg/dL Total Bilirubin 1.0 (0.2-1.0) mg/dL AST 73 H (15-37) IU/L ALT 43 (14-63) IU/L Alkaline Phosphatase 69 (46-116) U/L Troponin I < 0.050 (0.000-0.056) ng/mL B-Natriuretic Peptide (<100) PG/ML Total Protein 6.1 L (6.4-8.2) g/dL Albumin 2.8 L (3.4-5.0) g/dL Globulin 3.3 (2.6-4.0) g/dL Albumin/Globulin Ratio 0.9 (0.9-1.6) Lipase 166 (73-393) U/L TSH 3rd Generation 1.05 (0.36-3.74) uIU/mL HCG, Qual (NEG) SARS Virus RNA (PCR) (NEGATIVE) 06/01/20 06/01/20 06/01/20 Range/Units 10:20 10:20 10:20 WBC (4.0-11.0) K/uL RBC (4.30-5.90) M/uL Hgb (12.0-16.0) g/dL Hct (36.0-46.0) % MCV (80.0-98.0) fL MCH (27.0-32.0) pg MCHC (31.0-37.0) g/dL RDW Std Deviation (28.0-62.0) fl RDW Coeff of Michaela (11.0-15.0) % Plt Count (150-400) K/uL MPV (7.40-12.00) fL Neut % (Auto) (48.0-80.0) % Lymph % (Auto) (16.0-40.0) % [place] % (Auto) (0.0-15.0) % Eos % (Auto) (0.0-7.0) % Baso % (Auto) (0.0-1.5) % Neut # (Auto) (1.4-5.7) K/uL Lymph # (Auto) (0.6-2.4) K/uL [place] # (Auto) (0.0-0.8) K/uL Eos # (Auto) (0.0-0.7) K/uL Baso # (Auto) (0.0-0.1) K/uL Nucleated RBC % /100WBC Nucleated RBCs # K/uL INR D-Dimer, Quantitative 0.46 (0.0-0.50) mg/L FEU Sodium (136-145) mmol/L Potassium (3.5-5.1) mmol/L Chloride (98-107) mmol/L Carbon Dioxide (21.0-32.0) mmol/L BUN (7.0-18.0) mg/dL Creatinine (0.6-1.0) mg/dL Est Cr Clr Drug Dosing mL/min Estimated GFR (MDRD) ml/min Glucose (74-106) mg/dL Calcium (8.5-10.1) mg/dL Magnesium (1.8-2.4) mg/dL Total Bilirubin (0.2-1.0) mg/dL AST (15-37) IU/L ALT (14-63) IU/L Alkaline Phosphatase (46-116) U/L Troponin I (0.000-0.056) ng/mL B-Natriuretic Peptide 80 (<100) PG/ML Total Protein (6.4-8.2) g/dL Albumin (3.4-5.0) g/dL Globulin (2.6-4.0) g/dL Albumin/Globulin Ratio (0.9-1.6) Lipase (73-393) U/L TSH 3rd Generation (0.36-3.74) uIU/mL HCG, Qual NEGATIVE (NEG) SARS Virus RNA (PCR) (NEGATIVE) 06/01/20 06/01/20 Range/Units 14:10 15:12 WBC (4.0-11.0) K/uL RBC (4.30-5.90) M/uL Hgb (12.0-16.0) g/dL Hct (36.0-46.0) % MCV (80.0-98.0) fL MCH (27.0-32.0) pg MCHC (31.0-37.0) g/dL RDW Std Deviation (28.0-62.0) fl RDW Coeff of Michaela (11.0-15.0) % Plt Count (150-400) K/uL MPV (7.40-12.00) fL Neut % (Auto) (48.0-80.0) % Lymph % (Auto) (16.0-40.0) % [place] % (Auto) (0.0-15.0) % Eos % (Auto) (0.0-7.0) % Baso % (Auto) (0.0-1.5) % Neut # (Auto) (1.4-5.7) K/uL Lymph # (Auto) (0.6-2.4) K/uL [place] # (Auto) (0.0-0.8) K/uL Eos # (Auto) (0.0-0.7) K/uL Baso # (Auto) (0.0-0.1) K/uL Nucleated RBC % /100WBC Nucleated RBCs # K/uL INR D-Dimer, Quantitative (0.0-0.50) mg/L FEU Sodium (136-145) mmol/L Potassium (3.5-5.1) mmol/L Chloride (98-107) mmol/L Carbon Dioxide (21.0-32.0) mmol/L BUN (7.0-18.0) mg/dL Creatinine (0.6-1.0) mg/dL Est Cr Clr Drug Dosing mL/min Estimated GFR (MDRD) ml/min Glucose (74-106) mg/dL Calcium (8.5-10.1) mg/dL Magnesium (1.8-2.4) mg/dL Total Bilirubin (0.2-1.0) mg/dL AST (15-37) IU/L ALT (14-63) IU/L Alkaline Phosphatase (46-116) U/L Troponin I < 0.050 (0.000-0.056) ng/mL B-Natriuretic Peptide (<100) PG/ML Total Protein (6.4-8.2) g/dL Albumin (3.4-5.0) g/dL Globulin (2.6-4.0) g/dL Albumin/Globulin Ratio (0.9-1.6) Lipase (73-393) U/L TSH 3rd Generation (0.36-3.74) uIU/mL HCG, Qual (NEG) SARS Virus RNA (PCR) NEGATIVE (NEGATIVE) Result Diagrams: 06/01/20 10:20 06/01/20 10:20 Sepsis Event Note - Evaluation Sepsis Screening Result: No Definite Risk - Focused Exam Vital Signs: Vital Signs Temp Pulse Resp BP BP Pulse Ox 06/01/20 15:10 158/101 H 06/01/20 13:00 81 16 100 06/01/20 12:51 81 16 149/95 H 99 06/01/20 11:21 74 16 131/92 H 100 06/01/20 10:02 96.7 F L 94 16 121/71 99 Orders Last 24hrs: Active Orders 24 hr Category Date Time Status Patient Status [ADT] Routine ADT 06/01/20 15:24 Active Ambulate [RC] ASDIRECTED Care 06/01/20 15:50 Active Ambulate [RC] PER UNIT ROUTINE Care 06/01/20 15:51 Active Antiembolic Devices [RC] PER UNIT ROUTINE Care 06/01/20 15:52 Active Oxygen Therapy [RC] PRN Care 06/01/20 15:50 Active Pulse Oximetry [RC] PRN Care 06/01/20 15:51 Active RT Aerosol Therapy [RC] ASDIRECTED Care 06/01/20 15:54 Active Telemetry Monitoring [Cardiac Monitoring] [RC] . Care 06/01/20 16:39 Active DIRECTED VTE/DVT Education [RC] PER UNIT ROUTINE Care 06/01/20 15:50 Active Vital Signs [RC] Q4H Care 06/01/20 15:50 Active Heart Healthy Diet [DIET] Diet 06/01/20 Dinner Active Echo Comp wo Cont [US] Routine Exams 06/01/20 15:58 Ordered GLYCOSYLATED HEMOGLOBIN,HGBA1C [CHEM] Routine Lab 06/01/20 15:56 Ordered LIPID PANEL [CHEM] AM Lab 06/02/20 05:11 Ordered TROPONIN I [CHEM] Routine Lab 06/01/20 17:15 Ordered UA W/MICROSCOPIC [URIN] Routine Lab 06/01/20 15:50 Ordered Acetaminophen [TylenoL] Med 06/01/20 15:50 Active 650 mg PO Q4H PRN Albuterol/Ipratropium [DuoNeb 3.0-0.5 MG/3 ML] Med 06/01/20 15:50 Active 3 ml NEB Q4HRRT PRN LORazepam [Ativan] Med 06/01/20 16:06 Active See Protocol IVPUSH Q4H PRN Lactated Ringers [Ringers, Lactated] 1,000 ml Med 06/01/20 16:15 Active IV ASDIRECTED Morphine Med 06/01/20 15:50 Active 1 mg IVPUSH Q2H PRN Ondansetron [Zofran] Med 06/01/20 15:50 Active 4 mg IVPUSH Q4H PRN Sodium Chloride 0.9% [Saline Flush] Med 06/01/20 10:07 Active 10 ml FLUSH ASDIRECTED PRN Sodium Chloride 0.9% [Saline Flush] Med 06/01/20 10:07 Active 2.5 ml FLUSH ASDIRECTED PRN Saline Lock Insert [OM.PC] Stat Oth 06/01/20 10:11 Ordered Sequential Compression Device [OM.PC] Per Unit Routine Oth 06/01/20 15:51 Ordered Medication Orders Acetaminophen (Tylenol) 650 mg PO Q4H PRN PRN Reason: Pain (Mild 1-3)/fever Albuterol/Ipratropium (Duoneb 3.0-0.5 Mg/3 Ml) 3 ml NEB Q4HRRT PRN PRN Reason: Shortness Of Breath/wheezing Lactated Ringer's (Ringers, Lactated) 1,000 mls @ 100 mls/hr IV ASDIRECTED MARYAN Lorazepam (Ativan) 0 mg IVPUSH Q4H PRN; Protocol PRN Reason: Withdrawal Symptoms Morphine Sulfate (Morphine) 1 mg IVPUSH Q2H PRN PRN Reason: Pain (severe 7-10) Stop: 06/02/20 15:52 Ondansetron HCl (Zofran) 4 mg IVPUSH Q4H PRN PRN Reason: Nausea/Vomiting Sodium Chloride (Saline Flush) 10 ml FLUSH ASDIRECTED PRN PRN Reason: Keep Vein Open Last Admin: 06/01/20 10:24 Dose: 10 ml Documented by: TIFFANY Sodium Chloride (Saline Flush) 2.5 ml FLUSH ASDIRECTED PRN PRN Reason: Keep Vein Open Last Admin: 06/01/20 10:24 Dose: 2.5 ml Documented by: TIFFANY
--- NOTE | 2020-06-01 17:27 | PCM.HP.2 ---
H&P History of Present Illness - General Date of Service: 06/01/20 Admit Problem/Dx: Admission Diagnosis/Problem Admission Diagnosis/Problem Chest pain - History of Present Illness Initial Comments - Free Text/Narative: 49-year-old female with PMH of DVT, alcohol abuse in past, presenting with chest pressure and difficulty breathing for the last 4 to 5 days. She reports that she has had a pressure feeling in her lower chest and upper abdomen/epigastric area and some mild difficulty breathing somewhat constantly over the last 4 to 5 days. No cough. No fever. She has had some dizziness as well including yesterday when she tried to take a shower she could barely even take the full shower due to dizziness. Patient states she has lost her appetite and hasn't been able to eat much for last few weeks. Her PCP obtained CT scan but no etiology was found. SDhe c/o chronic numbness of her body, states he w hole body feels numb, she had an MRI and no etiology was found as of yet. She had a cholecystectomy in February 2020 and she reports symptoms similar to the nausea prior to a cholecystectomy as well. No significant cardiac risk factors but she does report a remote history of DVT 1 year ago, for which she was on 6 months of anticoagulation. CTA chest was negative, was found to have UTI, Patient was admitted for ACS rule out. Chest pain Pain Score (Numeric/FACES): 8 - Related Data Allergies/Adverse Reactions: Allergies Allergy/AdvReac Type Severity Reaction Status Date / Time No Known Allergies Allergy Verified 06/01/20 17:44 Home Medications: Home Meds Acetaminophen/oxyCODONE [Percocet 325-5 MG] 2 tab PO Q4H PRN tablet 03/07/20 [Rx] Apixaban [Eliquis] 5 mg PO BID #1 tablet 03/07/20 [Rx] Cyclobenzaprine [Flexeril] 5 mg PO TID PRN tablet 03/07/20 [Rx] Ketorolac [Toradol] 10 mg PO Q6H PRN tablet 03/07/20 [Rx] Nitrofurantoin Monohyd/M-Cryst [Macrobid 100 mg Capsule] 1 dose .ROUTE DAILY 06/01/20 [History] Ondansetron [Ondansetron ODT] 1 dose .ROUTE Q4HR PRN 06/01/20 [History] Magnesium Oxide [Magnesium] 200 mg PO DAILY #10 tab.chew 06/02/20 [Rx] Potassium Chloride [Klor-Con 10] 10 meq PO DAILY #20 tab.er 06/02/20 [Rx] Thiamine [Vitamin B-1] 100 mg PO BEDTIME #30 tablet 06/02/20 [Rx] Past Medical History - Past Health History Medical/Surgical History: Denies Medical/Surgical History HEENT History: Reports: None Cardiovascular History: Reports: Blood Clots/VTE/DVT Respiratory History: Reports: None Gastrointestinal History: Reports: None Genitourinary History: Reports: None 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: Musculoskeletal History: Reports: Back Pain, Chronic Neurological History: Reports: None Psychiatric History: Reports: Anxiety, Other (See Below) Other Psychiatric History: anxiety after of brother Endocrine/Metabolic History: Reports: None Hematologic History: Reports: None Immunologic History: Reports: None Oncologic (Cancer) History: Reports: None Dermatologic History: Reports: None - Infectious Disease History Infectious Disease History: Reports: Chicken Pox - Past Surgical History Head Surgeries/Procedures: Reports: None HEENT Surgical History: Reports: Tonsillectomy Cardiovascular Surgical History: Reports: None Respiratory Surgical History: Reports: None GI Surgical History: Reports: Appendectomy Female Surgical History: Reports: Tubal Ligation Endocrine Surgical History: Reports: None Neurological Surgical History: Reports: None Musculoskeletal Surgical History: Reports: Other (See Below) Other Musculoskeletal Surgeries/Procedures:: had back surgery with rods/pins Oncologic Surgical History: Reports: None Dermatological Surgical History: Reports: None Social & Family History - Family History Family Medical History: Noncontributory Oncologic: Reports: Brain - Caffeine Use Caffeine Use: Reports: None H&P Review of Systems - Review of Systems: Review Of Systems: See Below General: Reports: Malaise, Weakness, Fatigue, Decreased Appetite. Denies: Fever, Chills, Night Sweats, Diaphoresis HEENT: Denies: Contact Lenses, Dysphasia, Ear Pain, Sore Throat, Vertigo Pulmonary: Reports: Shortness of Breath. Denies: Wheezing, Pleuritic Chest Pain Cardiovascular: Reports: Chest Pain, Dyspnea on Exertion, Lightheadedness. Denies: Palpitations, Syncope, Claudication, Blood Pressure Problem Gastrointestinal: Reports: Anorexia, Decreased Appetite. Denies: Abdominal Pain, Black Stool, Bloody Stool, Constipation, Diarrhea, Difficulty Swallowing, Distension, Flatus, Hematemesis, Hematochezia Genitourinary: Denies: Dysuria, Burning, Pain Musculoskeletal: Denies: Neck Pain, Shoulder Pain, Arm Pain Skin: Denies: Cyanosis, Jaundice, Mottled Psychiatric: Reports: Anxiety. Denies: Confusion, Depression, Suicidal I deation, Hallucinations (Visual) Neurological: Reports: Dizziness, Numbness. Denies: Confusion, Headache, Seizure, Syncope Exam - Exam Exam: See Below - Vital Signs Vital Signs: Last Vital Signs Temp 35.9 C L 06/01/20 10:02 Pulse 77 06/01/20 16:00 Resp 16 06/01/20 16:40 BP 131/91 H 06/01/20 16:40 Pulse Ox 98 06/01/20 16:40 Weight: 90.718 kg - Exam General: Alert, Oriented Neck: Supple, Trachea Midline Lungs: Clear to Auscultation, Normal Respiratory Effort Cardiovascular: Regular Rate, Regular Rhythm, Normal S1, Normal S2 GI/Abdominal Exam: Normal Bowel Sounds, Soft, Non-Tender Back Exam: Normal Inspection, Full Range of Motion Extremities: Normal Inspection, Normal Range of Motion, Non-Tender Skin: Warm, Dry Neurological: Cranial Nerves Intact, Reflexes Equal Bilateral Neuro Extensive - Mental Status: Alert, Oriented x3 Neuro Extensive - Motor, Sensory, Reflexes: No: Pronator Drift (R), Pronator Drift (L) - Patient Data Lab Results Last 24 hrs: Laboratory Results - last 24 hr 06/01/20 06/01/20 06/01/20 Range/Units 10:20 10:20 10:20 WBC 3.22 L (4.0-11.0) K/uL RBC 4.02 L (4.30-5.90) M/uL Hgb 11.6 L (12.0-16.0) g/dL Hct 36.5 (36.0-46.0) % MCV 90.8 (80.0-98.0) fL MCH 28.9 (27.0-32.0) pg MCHC 31.8 (31.0-37.0) g/dL RDW Std Deviation 66.4 H (28.0-62.0) fl RDW Coeff of Michaela 20 H (11.0-15.0) % Plt Count 157 (150-400) K/uL MPV 9.80 (7.40-12.00) fL Neut % (Auto) 63.4 (48.0-80.0) % Lymph % (Auto) 19.9 (16.0-40.0) % [place] % (Auto) 15.8 H (0.0-15.0) % Eos % (Auto) 0.6 (0.0-7.0) % Baso % (Auto) 0.3 (0.0-1.5) % Neut # (Auto) 2.0 (1.4-5.7) K/uL Lymph # (Auto) 0.6 (0.6-2.4) K/uL [place] # (Auto) 0.5 (0.0-0.8) K/uL Eos # (Auto) 0.0 (0.0-0.7) K/uL Baso # (Auto) 0.0 (0.0-0.1) K/uL Nucleated RBC % 0.0 /100WBC Nucleated RBCs # 0 K/uL INR 1.08 D-Dimer, Quantitative (0.0-0.50) mg/L FEU Sodium 135 L (136-145) mmol/L Potassium 3.0 L (3.5-5.1) mmol/L Chloride 99 (98-107) mmol/L Carbon Dioxide 21.7 (21.0-32.0) mmol/L BUN 7 (7.0-18.0) mg/dL Creatinine 1.2 H (0.6-1.0) mg/dL Est Cr Clr Drug Dosing 65.44 mL/min Estimated GFR (MDRD) 47.7 ml/min Glucose 91 (74-106) mg/dL Calcium 8.3 L (8.5-10.1) mg/dL Magnesium 1.3 L (1.8-2.4) mg/dL Total Bilirubin 1.0 (0.2-1.0) mg/dL AST 73 H (15-37) IU/L ALT 43 (14-63) IU/L Alkaline Phosphatase 69 (46-116) U/L Troponin I < 0.050 (0.000-0.056) ng/mL B-Natriuretic Peptide (<100) PG/ML Total Protein 6.1 L (6.4-8.2) g/dL Albumin 2.8 L (3.4-5.0) g/dL Globulin 3.3 (2.6-4.0) g/dL Albumin/Globulin Ratio 0.9 (0.9-1.6) Lipase 166 (73-393) U/L TSH 3rd Generation 1.05 (0.36-3.74) uIU/mL HCG, Qual (NEG) SARS Virus RNA (PCR) (NEGATIVE) 06/01/20 06/01/20 06/01/20 Range/Units 10:20 10:20 10:20 WBC (4.0-11.0) K/uL RBC (4.30-5.90) M/uL Hgb (12.0-16.0) g/dL Hct (36.0-46.0) % MCV (80.0-98.0) fL MCH (27.0-32.0) pg MCHC (31.0-37.0) g/dL RDW Std Deviation (28.0-62.0) fl RDW Coeff of Michaela (11.0-15.0) % Plt Count (150-400) K/uL MPV (7.40-12.00) fL Neut % (Auto) (48.0-80.0) % Lymph % (Auto) (16.0-40.0) % [place] % (Auto) (0.0-15.0) % Eos % (Auto) (0.0-7.0) % Baso % (Auto) (0.0-1.5) % Neut # (Auto) (1.4-5.7) K/uL Lymph # (Auto) (0.6-2.4) K/uL [place] # (Auto) (0.0-0.8) K/uL Eos # (Auto) (0.0-0.7) K/uL Baso # (Auto) (0.0-0.1) K/uL Nucleated RBC % /100WBC Nucleated RBCs # K/uL INR D-Dimer, Quantitative 0.46 (0.0-0.50) mg/L FEU Sodium (136-145) mmol/L Potassium (3.5-5.1) mmol/L Chloride (98-107) mmol/L Carbon Dioxide (21.0-32.0) mmol/L BUN (7.0-18.0) mg/dL Creatinine (0.6-1.0) mg/dL Est Cr Clr Drug Dosing mL/min Estimated GFR (MDRD) ml/min Glucose (74-106) mg/dL Calcium (8.5-10.1) mg/dL Magnesium (1.8-2.4) mg/dL Total Bilirubin (0.2-1.0) mg/dL AST (15-37) IU/L ALT (14-63) IU/L Alkaline Phosphatase (46-116) U/L Troponin I (0.000-0.056) ng/mL B-Natriuretic Peptide 80 (<100) PG/ML Total Protein (6.4-8.2) g/dL Albumin (3.4-5.0) g/dL Globulin (2.6-4.0) g/dL Albumin/Globulin Ratio (0.9-1.6) Lipase (73-393) U/L TSH 3rd Generation (0.36-3.74) uIU/mL HCG, Qual NEGATIVE (NEG) SARS Virus RNA (PCR) (NEGATIVE) 06/01/20 06/01/20 Range/Units 14:10 15:12 WBC (4.0-11.0) K/uL RBC (4.30-5.90) M/uL Hgb (12.0-16.0) g/dL Hct (36.0-46.0) % MCV (80.0-98.0) fL MCH (27.0-32.0) pg MCHC (31.0-37.0) g/dL RDW Std Deviation (28.0-62.0) fl RDW Coeff of Michaela (11.0-15.0) % Plt Count (150-400) K/uL MPV (7.40-12.00) fL Neut % (Auto) (48.0-80.0) % Lymph % (Auto) (16.0-40.0) % [place] % (Auto) (0.0-15.0) % Eos % (Auto) (0.0-7.0) % Baso % (Auto) (0.0-1.5) % Neut # (Auto) (1.4-5.7) K/uL Lymph # (Auto) (0.6-2.4) K/uL [place] # (Auto) (0.0-0.8) K/uL Eos # (Auto) (0.0-0.7) K/uL Baso # (Auto) (0.0-0.1) K/uL Nucleated RBC % /100WBC Nucleated RBCs # K/uL INR D-Dimer, Quantitative (0.0-0.50) mg/L FEU Sodium (136-145) mmol/L Potassium (3.5-5.1) mmol/L Chloride (98-107) mmol/L Carbon Dioxide (21.0-32.0) mmol/L BUN (7.0-18.0) mg/dL Creatinine (0.6-1.0) mg/dL Est Cr Clr Drug Dosing mL/min Estimated GFR (MDRD) ml/min Glucose (74-106) mg/dL Calcium (8.5-10.1) mg/dL Magnesium (1.8-2.4) mg/dL Total Bilirubin (0.2-1.0) mg/dL AST (15-37) IU/L ALT (14-63) IU/L Alkaline Phosphatase (46-116) U/L Troponin I < 0.050 (0.000-0.056) ng/mL B-Natriuretic Peptide (<100) PG/ML Total Protein (6.4-8.2) g/dL Albumin (3.4-5.0) g/dL Globulin (2.6-4.0) g/dL Albumin/Globulin Ratio (0.9-1.6) Lipase (73-393) U/L TSH 3rd Generation (0.36-3.74) uIU/mL HCG, Qual (NEG) SARS Virus RNA (PCR) NEGATIVE (NEGATIVE) Result Diagrams: 06/01/20 10:20 06/02/20 05:35 Sepsis Event Note - Evaluation Sepsis Screening Result: No Definite Risk - Focused Exam Vital Signs: Vital Signs Temp Pulse Resp BP BP Pulse Ox 06/01/20 16:40 16 131/91 H 98 06/01/20 16:00 77 16 128/96 H 100 06/01/20 15:10 158/101 H 06/01/20 15:00 79 16 151/101 H 100 06/01/20 14:00 78 16 148/98 H 100 06/01/20 13:00 81 16 100 06/01/20 12:51 81 16 149/95 H 99 06/01/20 11:21 74 16 131/92 H 100 06/01/20 10:02 35.9 C L 94 16 121/71 99 - Problem List (1) Chest pain SNOMED Code(s): 63356570 ICD Code: R07.9 - CHEST PAIN, UNSPECIFIED Status: Acute Current Visit: Yes (2) UTI (urinary tract infection) SNOMED Code(s): 43840614 ICD Code: N39.0 - URINARY TRACT INFECTION, SITE NOT SPECIFIED Status: Acute Current Visit: No (3) History of alcohol abuse SNOMED Code(s): 093531332 ICD Code: F10.11 - ALCOHOL ABUSE, IN REMISSION Status: Chronic Current Visit: No (4) Hypokalemia SNOMED Code(s): 82551938 ICD Code: E87.6 - HYPOKALEMIA Status: Acute Current Visit: Yes (5) Hypomagnesemia SNOMED Code(s): 290357915 ICD Code: E83.42 - HYPOMAGNESEMIA Status: Acute Current Visit: Yes Problem List Initiated/Reviewed/Updated: Yes Orders Last 24hrs: Active Orders 24 hr Category Date Time Status Patient Status [ADT] Routine ADT 06/01/20 15:24 Active Ambulate [RC] ASDIRECTED Care 06/01/20 15:50 Active Ambulate [RC] PER UNIT ROUTINE Care 06/01/20 15:51 Active Antiembolic Devices [RC] PER UNIT ROUTINE Care 06/01/20 15:52 Active Oxygen Therapy [RC] PRN Care 06/01/20 15:50 Active Pulse Oximetry [RC] PRN Care 06/01/20 15:51 Active RT Aerosol Therapy [RC] ASDIRECTED Care 06/01/20 15:54 Active Telemetry Monitoring [Cardiac Monitoring] [RC] . Care 06/01/20 16:39 Active DIRECTED VTE/DVT Education [RC] PER UNIT ROUTINE Care 06/01/20 15:50 Active Vital Signs [RC] Q4H Care 06/01/20 15:50 Active Heart Healthy Diet [DIET] Diet 06/01/20 Dinner Active Echo Comp wo Cont [US] Routine Exams 06/01/20 15:58 Ordered GLYCOSYLATED HEMOGLOBIN,HGBA1C [CHEM] Routine Lab 06/01/20 15:56 Ordered LIPID PANEL [CHEM] AM Lab 06/02/20 05:11 Ordered TROPONIN I [CHEM] Routine Lab 06/01/20 17:15 Ordered UA W/MICROSCOPIC [URIN] Routine Lab 06/01/20 15:50 Ordered Acetaminophen [TylenoL] Med 06/01/20 15:50 Active 650 mg PO Q4H PRN Albuterol/Ipratropium [DuoNeb 3.0-0.5 MG/3 ML] Med 06/01/20 15:50 Active 3 ml NEB Q4HRRT PRN LORazepam [Ativan] Med 06/01/20 16:06 Active See Protocol IVPUSH Q4H PRN Lactated Ringers [Ringers, Lactated] 1,000 ml Med 06/01/20 16:15 Active IV ASDIRECTED Morphine Med 06/01/20 15:50 Active 1 mg IVPUSH Q2H PRN Ondansetron [Zofran] Med 06/01/20 15:50 Active 4 mg IVPUSH Q4H PRN Sodium Chloride 0.9% [Saline Flush] Med 06/01/20 10:07 Active 10 ml FLUSH ASDIRECTED PRN Sodium Chloride 0.9% [Saline Flush] Med 06/01/20 10:07 Active 2.5 ml FLUSH ASDIRECTED PRN Saline Lock Insert [OM.PC] Stat Oth 06/01/20 10:11 Ordered Sequential Compression Device [OM.PC] Per Unit Routine Oth 06/01/20 15:51 Ordered Medication Orders Acetaminophen (Tylenol) 650 mg PO Q4H PRN PRN Reason: Pain (Mild 1-3)/fever Albuterol/Ipratropium (Duoneb 3.0-0.5 Mg/3 Ml) 3 ml NEB Q4HRRT PRN PRN Reason: Shortness Of Breath/wheezing Lactated Ringer's (Ringers, Lactated) 1,000 mls @ 100 mls/hr IV ASDIRECTED MARYAN Lorazepam (Ativan) 0 mg IVPUSH Q4H PRN; Protocol PRN Reason: Withdrawal Symptoms Morphine Sulfate (Morphine) 1 mg IVPUSH Q2H PRN PRN Reason: Pain (severe 7-10) Stop: 06/02/20 15:52 Ondansetron HCl (Zofran) 4 mg IVPUSH Q4H PRN PRN Reason: Nausea/Vomiting Sodium Chloride (Saline Flush) 10 ml FLUSH ASDIRECTED PRN PRN Reason: Keep Vein Open Last Admin: 06/01/20 10:24 Dose: 10 ml Documented by: TIFFANY Sodium Chloride (Saline Flush) 2.5 ml FLUSH ASDIRECTED PRN PRN Reason: Keep Vein Open Last Admin: 06/01/20 10:24 Dose: 2.5 ml Documented by: TIFFANY Assessment/Plan Comment:: 49 y/o F admitted for ACS rule out. Trend troponin Q6H Hypokalemia and hypomagnesemia repleted, recheck in AM H/O alcohol abuse, give start Thiamine Check HbA1c, lipid panel, TSH Start IV Ceftriaxone for UTI f/u on Urine Culture SCD for DVT ppx
[2020-06-01] MEDS ORDERED: Pantoprazole 40 MG Vial ONE (18:00)
[2020-06-01] MEDS: Lactated Ringers 1,000 ML IV SCH (18:07)
[2020-06-01 18:15] LABS: HEMOGLOBIN A1C 4.6 % (4.5-6.2)
[2020-06-01] MEDS ORDERED: Iopamidol 755 MG/ML 50 ML Bottle IV ONE (19:09)
[2020-06-01] MEDS ORDERED: cefTRIAXone 1 GM in Sodium Chloride 0.9% 50 ML IV SCH (21:00)
[2020-06-01] MEDS ORDERED: Thiamine 100 MG Tab PO SCH (21:00)
[2020-06-01] MEDS ORDERED: cefTRIAXone 1 GM in Premix Bag 1 BAG IV SCH (21:45)
[2020-06-02] MEDS: Lactated Ringers 1,000 ML IV SCH (05:08)
[2020-06-02 06:41] LABS: BLOOD UREA NITROGEN,BUN 4 mg/dL (7.0-18.0); CARBON DIOXIDE,CO2 22.2 mmol/L (21.0-32.0); CHLORIDE,CL 102 mmol/L (98-107); GLUCOSE RANDOM 79 mg/dL (74-106); POTASSIUM,K 3.6 mmol/L (3.5-5.1); SODIUM,NA 135 mmol/L (136-145)
[2020-06-02 08:30] VITALS: BP 142/104; PULSE 74
[2020-06-02] MEDS ORDERED: Aspirin 81 MG Tab.Chew PO SCH (09:00)
[2020-06-02] MEDS ORDERED: Phosphorus #1 250 MG Tab PO ONE (09:56)
[2020-06-02] MEDS ORDERED: Magnesium Sulfate/Water 2 GM in Premix Bag 1 BAG IV ONE (09:56)
--- NOTE | 2020-06-02 09:59 | PCM.DCSUM1 ---
Discharge Summary - Hospital Course Free Text/Narrative:: 49-year-old female with PMH of DVT, alcohol abuse in past, presenting with chest pressure and difficulty breathing for the last 4 to 5 days. She reports that she has had a pressure feeling in her lower chest and upper abdomen/epigastric area and some mild difficulty breathing somewhat constantly over the last 4 to 5 days. No cough. No fever. She has had some dizziness as well including yesterday when she tried to take a shower she could barely even take the full shower due to dizziness. Patient states she has lost her appetite and hasn't been able to eat much for last few weeks. Her PCP obtained CT scan but no etiology was found. She c/o chronic numbness of her body, states he whole body feels numb, she had an MRI and no etiology was found as of yet. She had a cholecystectomy in February 2020 and she reports symptoms similar to the nausea prior to a cholecystectomy as well. No significant cardiac risk factors but she does report a remote history of DVT 1 year ago, for which she was on 6 months of anticoagulation. CTA chest was negative, was found to have UTI, Patient was admitted for ACS rule out. Patients troponin were trended, she was placed on tele, she was found to be hypokalemic and hypomagnesemic, her electrolytes were repleted, her chest pain resolved, next AM she was hemodynamically stable for discharge and recommended to fu with her PCP upon dc, she was recommenced to get a stress test on outpatient basis. - Discharge Data Discharge Date: 06/02/20 Discharge Disposition: Home, Self-Care 01 Condition: Stable - Referral to Home Health Primary Care Physician: PCP None - Discharge Diagnosis/Problem(s) (1) Chest pain SNOMED Code(s): 84961874 ICD Code: R07.9 - CHEST PAIN, UNSPECIFIED Status: Acute Current Visit: Yes (2) UTI (urinary tract infection) SNOMED Code(s): 76332018 ICD Code: N39.0 - URINARY TRACT INFECTION, SITE NOT SPECIFIED Status: Acute Current Visit: No (3) History of alcohol abuse SNOMED Code(s): 570133054 ICD Code: F10.11 - ALCOHOL ABUSE, IN REMISSION Status: Chronic Current Visit: No (4) Hypokalemia SNOMED Code(s): 54616438 ICD Code: E87.6 - HYPOKALEMIA Status: Acute Current Visit: Yes (5) Hypomagnesemia SNOMED Code(s): 784765110 ICD Code: E83.42 - HYPOMAGNESEMIA Status: Acute Current Visit: Yes - Discharge Plan Prescriptions/Med Rec: Potassium Chloride [Klor-Con 10] 10 meq PO DAILY #20 tab.er Magnesium Oxide [Magnesium] 200 mg PO DAILY #10 tab.chew Thiamine [Vitamin B-1] 100 mg PO BEDTIME #30 tablet Home Medications: Home Meds Acetaminophen/oxyCODONE [Percocet 325-5 MG] 2 tab PO Q4H PRN tablet 03/07/20 [Rx] Apixaban [Eliquis] 5 mg PO BID #1 tablet 03/07/20 [Rx] Cyclobenzaprine [Flexeril] 5 mg PO TID PRN tablet 03/07/20 [Rx] Ketorolac [Toradol] 10 mg PO Q6H PRN tablet 03/07/20 [Rx] Nitrofurantoin Monohyd/M-Cryst [Macrobid 100 mg Capsule] 1 dose .ROUTE DAILY 06/01/20 [History] Ondansetron [Ondansetron ODT] 1 dose .ROUTE Q4HR PRN 06/01/20 [History] Magnesium Oxide [Magnesium] 200 mg PO DAILY #10 tab.chew 06/02/20 [Rx] Potassium Chloride [Klor-Con 10] 10 meq PO DAILY #20 tab.er 06/02/20 [Rx] Thiamine [Vitamin B-1] 100 mg PO BEDTIME #30 tablet 06/02/20 [Rx] Patient Handouts: Nonspecific Chest Pain, Adult, [id number] - Discharge Summary/Plan Comment DC Time >30 min.: No - Patient Data Vitals - Most Recent: Last Vital Signs Temp 36.7 C 06/02/20 08:27 Pulse 74 06/02/20 08:27 Resp 14 06/02/20 08:27 BP 142/104 H 06/02/20 08:27 Pulse Ox 100 06/02/20 08:27 Weight - Most Recent: 90.718 kg I&O - Last 24 hours: Intake & Output 06/01/20 06/02/20 06/02/20 22:59 06:59 14:59 Intake Total 950 Output Total 750 Balance 200 Lab Results - Last 24 hrs: Laboratory Results - last 24 hr 06/01/20 06/01/20 06/01/20 Range/Units 10:20 10:20 10:20 WBC 3.22 L (4.0-11.0) K/uL RBC 4.02 L (4.30-5.90) M/uL Hgb 11.6 L (12.0-16.0) g/dL Hct 36.5 (36.0-46.0) % MCV 90.8 (80.0-98.0) fL MCH 28.9 (27.0-32.0) pg MCHC 31.8 (31.0-37.0) g/dL RDW Std Deviation 66.4 H (28.0-62.0) fl RDW Coeff of Michaela 20 H (11.0-15.0) % Plt Count 157 (150-400) K/uL MPV 9.80 (7.40-12.00) fL Neut % (Auto) 63.4 (48.0-80.0) % Lymph % (Auto) 19.9 (16.0-40.0) % [place] % (Auto) 15.8 H (0.0-15.0) % Eos % (Auto) 0.6 (0.0-7.0) % Baso % (Auto) 0.3 (0.0-1.5) % Neut # (Auto) 2.0 (1.4-5.7) K/uL Lymph # (Auto) 0.6 (0.6-2.4) K/uL [place] # (Auto) 0.5 (0.0-0.8) K/uL Eos # (Auto) 0.0 (0.0-0.7) K/uL Baso # (Auto) 0.0 (0.0-0.1) K/uL Nucleated RBC % 0.0 /100WBC Nucleated RBCs # 0 K/uL INR 1.08 D-Dimer, Quantitative (0.0-0.50) mg/L FEU Sodium 135 L (136-145) mmol/L Potassium 3.0 L (3.5-5.1) mmol/L Chloride 99 (98-107) mmol/L Carbon Dioxide 21.7 (21.0-32.0) mmol/L BUN 7 (7.0-18.0) mg/dL Creatinine 1.2 H (0.6-1.0) mg/dL Est Cr Clr Drug Dosing 65.44 mL/min Estimated GFR (MDRD) 47.7 ml/min Glucose 91 (74-106) mg/dL Hemoglobin A1c (4.5-6.2) % Calcium 8.3 L (8.5-10.1) mg/dL Phosphorus (2.6-4.7) mg/dL Magnesium 1.3 L (1.8-2.4) mg/dL Total Bilirubin 1.0 (0.2-1.0) mg/dL AST 73 H (15-37) IU/L ALT 43 (14-63) IU/L Alkaline Phosphatase 69 (46-116) U/L Troponin I < 0.050 (0.000-0.056) ng/mL B-Natriuretic Peptide (<100) PG/ML Total Protein 6.1 L (6.4-8.2) g/dL Albumin 2.8 L (3.4-5.0) g/dL Globulin 3.3 (2.6-4.0) g/dL Albumin/Globulin Ratio 0.9 (0.9-1.6) Triglycerides (0-200) mg/dL Cholesterol (50-200) mg/dL LDL Cholesterol, Calc (60-180) mg/dL VLDL Cholesterol (5-55) mg/dL HDL Cholesterol (40-60) mg/dL Cholesterol/HDL Ratio (3.3-6.0) Lipase 166 (73-393) U/L Vitamin B12 (193-986) pg/mL TSH 3rd Generation 1.05 (0.36-3.74) uIU/mL HCG, Qual (NEG) Urine Color Urine Appearance Urine pH (5.0-8.0) Ur Specific [place] (1.001-1.035) Urine Protein (NEGATIVE) mg/dL Urine Glucose (UA) (NEGATIVE) mg/dL Urine Ketones (NEGATIVE) mg/dL Urine Occult Blood (NEGATIVE) Urine Nitrite (NEGATIVE) Urine Bilirubin (NEGATIVE) Urine Ictotest Urine Urobilinogen (<2.0) EU/dL Ur Leukocyte Esterase (NEGATIVE) Urine RBC (0-2/HPF) Urine WBC (0-5/HPF) Ur Epithelial Cells (NONE-FEW) Urine Bacteria (NEGATIVE) SARS Virus RNA (PCR) (NEGATIVE) 06/01/20 06/01/20 06/01/20 Range/Units 10:20 10:20 10:20 WBC (4.0-11.0) K/uL RBC (4.30-5.90) M/uL Hgb (12.0-16.0) g/dL Hct (36.0-46.0) % MCV (80.0-98.0) fL MCH (27.0-32.0) pg MCHC (31.0-37.0) g/dL RDW Std Deviation (28.0-62.0) fl RDW Coeff of Michaela (11.0-15.0) % Plt Count (150-400) K/uL MPV (7.40-12.00) fL Neut % (Auto) (48.0-80.0) % Lymph % (Auto) (16.0-40.0) % [place] % (Auto) (0.0-15.0) % Eos % (Auto) (0.0-7.0) % Baso % (Auto) (0.0-1.5) % Neut # (Auto) (1.4-5.7) K/uL Lymph # (Auto) (0.6-2.4) K/uL [place] # (Auto) (0.0-0.8) K/uL Eos # (Auto) (0.0-0.7) K/uL Baso # (Auto) (0.0-0.1) K/uL Nucleated RBC % /100WBC Nucleated RBCs # K/uL INR D-Dimer, Quantitative 0.46 (0.0-0.50) mg/L FEU Sodium (136-145) mmol/L Potassium (3.5-5.1) mmol/L Chloride (98-107) mmol/L Carbon Dioxide (21.0-32.0) mmol/L BUN (7.0-18.0) mg/dL Creatinine (0.6-1.0) mg/dL Est Cr Clr Drug Dosing mL/min Estimated GFR (MDRD) ml/min Glucose (74-106) mg/dL Hemoglobin A1c (4.5-6.2) % Calcium (8.5-10.1) mg/dL Phosphorus (2.6-4.7) mg/dL Magnesium (1.8-2.4) mg/dL Total Bilirubin (0.2-1.0) mg/dL AST (15-37) IU/L ALT (14-63) IU/L Alkaline Phosphatase (46-116) U/L Troponin I (0.000-0.056) ng/mL B-Natriuretic Peptide 80 (<100) PG/ML Total Protein (6.4-8.2) g/dL Albumin (3.4-5.0) g/dL Globulin (2.6-4.0) g/dL Albumin/Globulin Ratio (0.9-1.6) Triglycerides (0-200) mg/dL Cholesterol (50-200) mg/dL LDL Cholesterol, Calc (60-180) mg/dL VLDL Cholesterol (5-55) mg/dL HDL Cholesterol (40-60) mg/dL Cholesterol/HDL Ratio (3.3-6.0) Lipase (73-393) U/L Vitamin B12 (193-986) pg/mL TSH 3rd Generation (0.36-3.74) uIU/mL HCG, Qual NEGATIVE (NEG) Urine Color Urine Appearance Urine pH (5.0-8.0) Ur Specific [place] (1.001-1.035) Urine Protein (NEGATIVE) mg/dL Urine Glucose (UA) (NEGATIVE) mg/dL Urine Ketones (NEGATIVE) mg/dL Urine Occult Blood (NEGATIVE) Urine Nitrite (NEGATIVE) Urine Bilirubin (NEGATIVE) Urine Ictotest Urine Urobilinogen (<2.0) EU/dL Ur Leukocyte Esterase (NEGATIVE) Urine RBC (0-2/HPF) Urine WBC (0-5/HPF) Ur Epithelial Cells (NONE-FEW) Urine Bacteria (NEGATIVE) SARS Virus RNA (PCR) (NEGATIVE) 06/01/20 06/01/20 06/01/20 Range/Units 14:10 15:12 17:42 WBC (4.0-11.0) K/uL RBC (4.30-5.90) M/uL Hgb (12.0-16.0) g/dL Hct (36.0-46.0) % MCV (80.0-98.0) fL MCH (27.0-32.0) pg MCHC (31.0-37.0) g/dL RDW Std Deviation (28.0-62.0) fl RDW Coeff of Michaela (11.0-15.0) % Plt Count (150-400) K/uL MPV (7.40-12.00) fL Neut % (Auto) (48.0-80.0) % Lymph % (Auto) (16.0-40.0) % [place] % (Auto) (0.0-15.0) % Eos % (Auto) (0.0-7.0) % Baso % (Auto) (0.0-1.5) % Neut # (Auto) (1.4-5.7) K/uL Lymph # (Auto) (0.6-2.4) K/uL [place] # (Auto) (0.0-0.8) K/uL Eos # (Auto) (0.0-0.7) K/uL Baso # (Auto) (0.0-0.1) K/uL Nucleated RBC % /100WBC Nucleated RBCs # K/uL INR D-Dimer, Quantitative (0.0-0.50) mg/L FEU Sodium (136-145) mmol/L Potassium (3.5-5.1) mmol/L Chloride (98-107) mmol/L Carbon Dioxide (21.0-32.0) mmol/L BUN (7.0-18.0) mg/dL Creatinine (0.6-1.0) mg/dL Est Cr Clr Drug Dosing mL/min Estimated GFR (MDRD) ml/min Glucose (74-106) mg/dL Hemoglobin A1c (4.5-6.2) % Calcium (8.5-10.1) mg/dL Phosphorus (2.6-4.7) mg/dL Magnesium (1.8-2.4) mg/dL Total Bilirubin (0.2-1.0) mg/dL AST (15-37) IU/L ALT (14-63) IU/L Alkaline Phosphatase (46-116) U/L Troponin I < 0.050 (0.000-0.056) ng/mL B-Natriuretic Peptide (<100) PG/ML Total Protein (6.4-8.2) g/dL Albumin (3.4-5.0) g/dL Globulin (2.6-4.0) g/dL Albumin/Globulin Ratio (0.9-1.6) Triglycerides (0-200) mg/dL Cholesterol (50-200) mg/dL LDL Cholesterol, Calc (60-180) mg/dL VLDL Cholesterol (5-55) mg/dL HDL Cholesterol (40-60) mg/dL Cholesterol/HDL Ratio (3.3-6.0) Lipase (73-393) U/L Vitamin B12 (193-986) pg/mL TSH 3rd Generation (0.36-3.74) uIU/mL HCG, Qual (NEG) Urine Color RED Urine Appearance CLOUDY Urine pH 5.0 (5.0-8.0) Ur Specific [place] 1.020 (1.001-1.035) Urine Protein 100 H (NEGATIVE) mg/dL Urine Glucose (UA) NEGATIVE (NEGATIVE) mg/dL Urine Ketones >=80 (NEGATIVE) mg/dL Urine Occult Blood LARGE H (NEGATIVE) Urine Nitrite POSITIVE H (NEGATIVE) Urine Bilirubin SMALL H (NEGATIVE) Urine Ictotest NEGATIVE Urine Urobilinogen 4.0 H (<2.0) EU/dL Ur Leukocyte Esterase TRACE H (NEGATIVE) Urine RBC TOO NUMEROUS TO CT H (0-2/HPF) Urine WBC 0-3 (0-5/HPF) Ur Epithelial Cells RARE (NONE-FEW) Urine Bacteria FEW (NEGATIVE) SARS Virus RNA (PCR) NEGATIVE (NEGATIVE) 06/01/20 06/01/20 06/01/20 Range/Units 17:52 17:52 17:52 WBC (4.0-11.0) K/uL RBC (4.30-5.90) M/uL Hgb (12.0-16.0) g/dL Hct (36.0-46.0) % MCV (80.0-98.0) fL MCH (27.0-32.0) pg MCHC (31.0-37.0) g/dL RDW Std Deviation (28.0-62.0) fl RDW Coeff of Michaela (11.0-15.0) % Plt Count (150-400) K/uL MPV (7.40-12.00) fL Neut % (Auto) (48.0-80.0) % Lymph % (Auto) (16.0-40.0) % [place] % (Auto) (0.0-15.0) % Eos % (Auto) (0.0-7.0) % Baso % (Auto) (0.0-1.5) % Neut # (Auto) (1.4-5.7) K/uL Lymph # (Auto) (0.6-2.4) K/uL [place] # (Auto) (0.0-0.8) K/uL Eos # (Auto) (0.0-0.7) K/uL Baso # (Auto) (0.0-0.1) K/uL Nucleated RBC % /100WBC Nucleated RBCs # K/uL INR D-Dimer, Quantitative (0.0-0.50) mg/L FEU Sodium (136-145) mmol/L Potassium (3.5-5.1) mmol/L Chloride (98-107) mmol/L Carbon Dioxide (21.0-32.0) mmol/L BUN (7.0-18.0) mg/dL Creatinine (0.6-1.0) mg/dL Est Cr Clr Drug Dosing mL/min Estimated GFR (MDRD) ml/min Glucose (74-106) mg/dL Hemoglobin A1c 4.6 (4.5-6.2) % Calcium (8.5-10.1) mg/dL Phosphorus (2.6-4.7) mg/dL Magnesium (1.8-2.4) mg/dL Total Bilirubin (0.2-1.0) mg/dL AST (15-37) IU/L ALT (14-63) IU/L Alkaline Phosphatase (46-116) U/L Troponin I < 0.050 (0.000-0.056) ng/mL B-Natriuretic Peptide (<100) PG/ML Total Protein (6.4-8.2) g/dL Albumin (3.4-5.0) g/dL Globulin (2.6-4.0) g/dL Albumin/Globulin Ratio (0.9-1.6) Triglycerides (0-200) mg/dL Cholesterol (50-200) mg/dL LDL Cholesterol, Calc (60-180) mg/dL VLDL Cholesterol (5-55) mg/dL HDL Cholesterol (40-60) mg/dL Cholesterol/HDL Ratio (3.3-6.0) Lipase (73-393) U/L Vitamin B12 601 (193-986) pg/mL TSH 3rd Generation (0.36-3.74) uIU/mL HCG, Qual (NEG) Urine Color Urine Appearance Urine pH (5.0-8.0) Ur Specific [place] (1.001-1.035) Urine Protein (NEGATIVE) mg/dL Urine Glucose (UA) (NEGATIVE) mg/dL Urine Ketones (NEGATIVE) mg/dL Urine Occult Blood (NEGATIVE) Urine Nitrite (NEGATIVE) Urine Bilirubin (NEGATIVE) Urine Ictotest Urine Urobilinogen (<2.0) EU/dL Ur Leukocyte Esterase (NEGATIVE) Urine RBC (0-2/HPF) Urine WBC (0-5/HPF) Ur Epithelial Cells (NONE-FEW) Urine Bacteria (NEGATIVE) SARS Virus RNA (PCR) (NEGATIVE) 06/02/20 Range/Units 05:35 WBC (4.0-11.0) K/uL RBC (4.30-5.90) M/uL Hgb (12.0-16.0) g/dL Hct (36.0-46.0) % MCV (80.0-98.0) fL MCH (27.0-32.0) pg MCHC (31.0-37.0) g/dL RDW Std Deviation (28.0-62.0) fl RDW Coeff of Michaela (11.0-15.0) % Plt Count (150-400) K/uL MPV (7.40-12.00) fL Neut % (Auto) (48.0-80.0) % Lymph % (Auto) (16.0-40.0) % [place] % (Auto) (0.0-15.0) % Eos % (Auto) (0.0-7.0) % Baso % (Auto) (0.0-1.5) % Neut # (Auto) (1.4-5.7) K/uL Lymph # (Auto) (0.6-2.4) K/uL [place] # (Auto) (0.0-0.8) K/uL Eos # (Auto) (0.0-0.7) K/uL Baso # (Auto) (0.0-0.1) K/uL Nucleated RBC % /100WBC Nucleated RBCs # K/uL INR D-Dimer, Quantitative (0.0-0.50) mg/L FEU Sodium 135 L (136-145) mmol/L Potassium 3.6 (3.5-5.1) mmol/L Chloride 102 (98-107) mmol/L Carbon Dioxide 22.2 (21.0-32.0) mmol/L BUN 4 L (7.0-18.0) mg/dL Creatinine 0.7 (0.6-1.0) mg/dL Est Cr Clr Drug Dosing 112.19 mL/min Estimated GFR (MDRD) > 60.0 ml/min Glucose 79 (74-106) mg/dL Hemoglobin A1c (4.5-6.2) % Calcium 7.9 L (8.5-10.1) mg/dL Phosphorus 2.3 L (2.6-4.7) mg/dL Magnesium 1.7 L (1.8-2.4) mg/dL Total Bilirubin (0.2-1.0) mg/dL AST (15-37) IU/L ALT (14-63) IU/L Alkaline Phosphatase (46-116) U/L Troponin I (0.000-0.056) ng/mL B-Natriuretic Peptide (<100) PG/ML Total Protein (6.4-8.2) g/dL Albumin (3.4-5.0) g/dL Globulin (2.6-4.0) g/dL Albumin/Globulin Ratio (0.9-1.6) Triglycerides 61 (0-200) mg/dL Cholesterol 120 (50-200) mg/dL LDL Cholesterol, Calc 61 (60-180) mg/dL VLDL Cholesterol 12 (5-55) mg/dL HDL Cholesterol 47 (40-60) mg/dL Cholesterol/HDL Ratio 2.6 L (3.3-6.0) Lipase (73-393) U/L Vitamin B12 (193-986) pg/mL TSH 3rd Generation (0.36-3.74) uIU/mL HCG, Qual (NEG) Urine Color Urine Appearance Urine pH (5.0-8.0) Ur Specific [place] (1.001-1.035) Urine Protein (NEGATIVE) mg/dL Urine Glucose (UA) (NEGATIVE) mg/dL Urine Ketones (NEGATIVE) mg/dL Urine Occult Blood (NEGATIVE) Urine Nitrite (NEGATIVE) Urine Bilirubin (NEGATIVE) Urine Ictotest Urine Urobilinogen (<2.0) EU/dL Ur Leukocyte Esterase (NEGATIVE) Urine RBC (0-2/HPF) Urine WBC (0-5/HPF) Ur Epithelial Cells (NONE-FEW) Urine Bacteria (NEGATIVE) SARS Virus RNA (PCR) (NEGATIVE) Med Orders - Current: Current Medications Acetaminophen (Tylenol) 650 mg PO Q4H PRN PRN Reason: Pain (Mild 1-3)/fever Albuterol/Ipratropium (Duoneb 3.0-0.5 Mg/3 Ml) 3 ml NEB Q4HRRT PRN PRN Reason: Shortness Of Breath/wheezing Aspirin (Aspirin) 81 mg PO DAILY [facility] Last Admin: 06/02/20 08:27 Dose: 81 mg Documented by: Lactated Ringer's (Ringers, Lactated) 1,000 mls @ 100 mls/hr IV ASDIRECTED [facility] Last Admin: 06/02/20 05:08 Dose: 100 mls/hr Documented by: Ceftriaxone Sodium/Dextrose 1 (gm/ Premix) 50 mls @ 100 mls/hr IV Q24H [facility] Last Admin: 06/01/20 22:15 Dose: 100 mls/hr Documented by: Magnesium Sulfate 2 gm/ Premix 50 mls @ 50 mls/hr IV ONETIME ONE Stop: 06/02/20 10:55 Lorazepam (Ativan) 0 mg IVPUSH Q4H PRN; Protocol PRN Reason: Withdrawal Symptoms Morphine Sulfate (Morphine) 1 mg IVPUSH Q2H PRN PRN Reason: Pain (severe 7-10) Stop: 06/02/20 15:52 Ondansetron HCl (Zofran) 4 mg IVPUSH Q4H PRN PRN Reason: Nausea/Vomiting Sodium Chloride (Saline Flush) 10 ml FLUSH ASDIRECTED PRN PRN Reason: Keep Vein Open Last Admin: 06/01/20 10:24 Dose: 10 ml Documented by: Sodium Chloride (Saline Flush) 2.5 ml FLUSH ASDIRECTED PRN PRN Reason: Keep Vein Open Last Admin: 06/01/20 10:24 Dose: 2.5 ml Documented by: Thiamine HCl (Vitamin B-1) 100 mg PO BEDTIME [facility] Last Admin: 06/01/20 21:32 Dose: 100 mg Documented by: Discontinued Medications Aspirin (Aspirin) 324 mg PO ONETIME ONE Stop: 06/01/20 10:08 Last Admin: 06/01/20 10:23 Dose: 324 mg Documented by: Al Hydroxide/Mg Hydroxide 15 (ml/ Lidocaine HCl 5 ml) 0 ml PO ONETIME ONE Stop: 06/01/20 14:18 Last Admin: 06/01/20 15:09 Dose: 20 each Documented by: Sodium Chloride (Normal Saline) 1,000 mls @ 999 mls/hr IV .Bolus ONE Stop: 06/01/20 11:07 Last Admin: 06/01/20 10:23 Dose: 999 mls/hr Documented by: Magnesium Sulfate 2 gm/ Premix 50 mls @ 50 mls/hr IV ONETIME ONE Stop: 06/01/20 12:29 Last Admin: 06/01/20 11:29 Dose: 50 mls/hr Documented by: Pantoprazole Sodium 40 mg/ (Sodium Chloride) 10 mls @ 300 mls/hr IV ONETIME ONE Stop: 06/01/20 15:51 Last Admin: 06/01/20 18:01 Dose: 300 mls/hr Documented by: Ceftriaxone Sodium 1 gm/ (Sodium Chloride) 50 mls @ 100 mls/hr IV Q24H [facility] Last Admin: 06/02/20 06:54 Dose: Not Given Documented by: Iopamidol (Isovue-370 (76%)) 50 ml IV ONETIME ONE Stop: 06/01/20 19:10 Last Admin: 06/01/20 19:10 Dose: 50 ml Documented by: Magnesium Oxide (Magnesium Oxide) 800 mg PO ONETIME ONE Stop: 06/01/20 16:00 Last Admin: 06/01/20 18:02 Dose: 800 mg Documented by: Morphine Sulfate (Morphine) 4 mg IVPUSH ONETIME ONE Stop: 06/01/20 14:18 Last Admin: 06/01/20 15:09 Dose: 4 mg Documented by: Nitroglycerin (Nitrostat) 0.4 mg SL ONETIME ONE Stop: 06/01/20 14:19 Last Admin: 06/01/20 15:10 Dose: 0.4 mg Documented by: Pantoprazole Sodium (Protonix Iv) Confirm Administered Dose 40 mg .ROUTE .STK-MED ONE Stop: 06/01/20 18:01 Last Admin: 06/01/20 19:11 Dose: Not Given Documented by: Potassium Chloride (Potassium Chloride) 40 meq PO ONETIME ONE Stop: 06/01/20 11:16 Last Admin: 06/01/20 11:29 Dose: 40 meq Documented by: Sodium Phosphate (Neutra-Phos) 250 mg PO ONETIME ONE Stop: 06/02/20 09:57
== END 2020-06-02 14:10 | disposition home or self-care (01) ==
LOC: MW.ED 09:55 → MW.MS 15:43
PROVIDERS: ADMIT Student in an Organized Health Care Education/Training Program; ATTEND Student in an Organized Health Care Education/Training Program
DX: R07.89 Other chest pain (principal); F41.9 Anxiety disorder, unspecified; G89.29 Other chronic pain; M54.9 Dorsalgia, unspecified; F10.11 Alcohol abuse, in remission; N39.0 Urinary tract infection, site not specified; E87.6 Hypokalemia; E83.42 Hypomagnesemia; Z20.828 Contact with and (suspected) exposure to other viral communicable diseases; Z79.899 Other long term (current) drug therapy; Z86.718 Personal history of other venous thrombosis and embolism
CPT/HCPCS: 36415; 71046; 71275; 80048; 80053; 80061; 81001; 82607; 83036; 83690; 83735; 83880; 84100; 84443; 84484; 84703; 85025; 85379; 85610; 87635; 93005; 93306; A9270; C9113; J0696; J2270; J3475; J7030; J7050; J7120; Q9967; 96361; 96365; 96375; 99285-25; U0002

== ENCOUNTER 2021-03-20 06:46 | Emergency (ER) | payer BC ==
--- NOTE | 2021-03-20 07:21 | EDM.PDOC ---
ED HPI GENERAL MEDICAL PROBLEM - General Chief Complaint: Upper Extremity Injury/Pain Stated Complaint: LEFT SHOULDER AND ARM PAIN Time Seen by Provider: 03/20/21 07:01 Source of Information: Reports: Patient History Limitations: Reports: No Limitations - History of Present Illness INITIAL COMMENTS - FREE TEXT/NARRATIVE: Patient is a 50-year-old female who presents today for left arm tingling and pain. Patient states that since yesterday whenever she moves the arm up or down or turns her head she has a tingling sensation going down her arm to her fingers. Patient is a tingling mostly in her third fourth and fifth finger. Patient denies any injury or falls or heavy lifting of the arm. Patient has any chest pain shortness of breath fever chills or other symptoms. Patient did try Motrin Tylenol at home without relief of the tingling in her arm. left arm Pain Score (Numeric/FACES): 10 - Related Data Allergies Allergy/AdvReac Type Severity Reaction Status Date / Time No Known Allergies Allergy Verified 03/20/21 06:59 Home Meds: Home Meds . 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: Musculoskeletal History: Reports: Back Pain, Chronic Neurological History: Reports: None Psychiatric History: Reports: Anxiety Other Psychiatric History: anxiety after of brother Endocrine/Metabolic History: Reports: None Insulin Pump Model and Cotton Bag Clipper: None Hematologic History: Reports: None Immunologic History: Reports: None Oncologic (Cancer) History: Reports: None Dermatologic History: Reports: None - Infectious Disease History Infectious Disease History: Reports: Chicken Pox - Past Surgical History Head Surgeries/Procedures: Reports: None HEENT Surgical History: Reports: Tonsillectomy Cardiovascular Surgical History: Reports: None Respiratory Surgical History: Reports: None GI Surgical History: Reports: Appendectomy, Cholecystectomy Female Surgical History: Reports: Tubal Ligation Endocrine Surgical History: Reports: None Neurological Surgical History: Reports: None Musculoskeletal Surgical History: Reports: Other (See Below) Other Musculoskeletal Surgeries/Procedures:: had back surgery with rods/pins Oncologic Surgical History: Reports: None Dermatological Surgical History: Reports: None Social & Family History - Family History Family Medical History: No Pertinent Family History Oncologic: Reports: Brain - Caffeine Use Caffeine Use: Reports: None - Recreational Drug Use Recreational Drug Use: No Review of Systems - Review of Systems Review Of Systems: See Below Constitutional: Reports: No Symptoms Eyes: Reports: No Symptoms Ears: Reports: No Symptoms Nose: Reports: No Symptoms Mouth/Throat: Reports: No Symptoms Respiratory: Reports: No Symptoms Cardiovascular: Reports: No Symptoms GI/Abdominal: Reports: No Symptoms Genitourinary: Reports: No Symptoms Musculoskeletal: Reports: No Symptoms Skin: Reports: No Symptoms Neurological: Reports: Tingling Psychiatric: Reports: No Symptoms ED EXAM, GENERAL - Physical Exam Exam: See Below Exam Limited By: No Limitations General Appearance: Alert, WD/WN, No Apparent Distress Eye Exam: Bilateral Eye: EOMI, PERRL Head: Atraumatic, Normocephalic Neck: Normal Inspection, Supple, Tender Lateral Respiratory/Chest: No Respiratory Distress Cardiovascular: Normal Peripheral Pulses Peripheral Pulses: 2+: Radial (L), Radial (R) GI/Abdominal: Normal Bowel Sounds, Soft, Non-Tender Back Exam: Normal Inspection, Full Range of Motion, Vertebral Tenderness Neurological: Alert, Oriented, Normal Cognition, Normal Gait #1 Interpretation EKG Date: 03/20/21 Time: 07:20 Rhythm: NSR Rate (Beats/Min): 84 [place]: Normal ST-T: Normal Course - Vital Signs Last Recorded V/S: Last Vital Signs Temp 97.5 F 03/20/21 07:00 Pulse 94 03/20/21 07:00 Resp 18 03/20/21 07:00 BP 109/82 03/20/21 07:00 Pulse Ox 97 03/20/21 07:00 - Orders/Labs/Meds Orders: Active Orders 24 hr Category Date Time Status EKG Documentation Completion [RC] STAT Care 03/20/21 07:13 Ordered Departure - Departure Time of Disposition: 07:26 Disposition: Home, Self-Care 01 Condition: Good Clinical Impression: Peripheral neuropathy - Discharge Information *PRESCRIPTION DRUG MONITORING PROGRAM REVIEWED*: Not Applicable *COPY OF PRESCRIPTION DRUG MONITORING REPORT IN PATIENT LETICIA: Not Applicable Instructions: Peripheral Neuropathy Referrals: PCP,None [Primary Care Provider] - Additional Instructions: The following information is given to patients seen in the emergency department who are being discharged to home. This information is to outline your options for follow-up care. We provide all patients seen in our emergency department wit h a follow-up referral. The need for follow-up, as well as the timing and circumstances, are variable depending upon the specifics of your emergency department visit. If you don't have a primary care physician on staff, we will provide you with a referral. We always advise you to contact your personal physician following an emergency department visit to inform them of the circumstance of the visit and for follow-up with them and/or the need for any referrals to a consulting specialist. The emergency department will also refer you to a specialist when appropriate. This referral assures that you have the opportunity for follow-up care with a specialist. All of these measure are taken in an effort to provide you with optimal care, which includes your follow-up. Under all circumstances we always encourage you to contact your private physician who remains a resource for coordinating your care. When calling for follow-up care, please make the office aware that this follow-up is from your recent emergency room visit. If for any reason you are refused follow-up, please contact the [facility] Emergency Department at and asked to speak to the emergency department charge nurse. Please follow up with your primary care physician. If you do not have a primary care physician, see below: [facility] [address] [place] [phone] [facility] [address] [place] [id number] You are seen today for pain and tingling of your left arm. On exam seems to be a peripheral neuropathy likely a pinched nerve. We will send him some muscle relaxer that she has some tightness to your upper deltoid as well. Also try to apply heat to the area as well. If you have any other concerning signs or symptoms please return to the ED otherwise follow-up to primary care physician. Sepsis Event Note (ED) - Evaluation Sepsis Screening Result: No Definite Risk - Focused Exam Vital Signs: Vital Signs Temp Pulse Resp BP Pulse Ox 03/20/21 07:00 97.5 F 94 18 109/82 97 - My Orders Last 24 Hours: My Active Orders 03/20/21 07:13 EKG Documentation Completion [RC] STAT - Assessment/Plan Last 24 Hours: My Active Orders 03/20/21 07:13 EKG Documentation Completion [RC] STAT Plan: Patient is a 50-year-old female presents today for arm pain and tingling. Patient likely has a peripheral nerve neuropathy likely the ulnar nerve if she has some tingling to the fourth and fifth finger but also the third finger which could have some median nerve involvement as well. This is a nontraumatic injury can be reproducible on exam. We did obtain EKG to make sure that the heart was okay. Patient will be sent home on Flexeril and will follow with PMD.
[2021-03-20 07:42] VITALS: BP 109/81; PULSE 87
== END 2021-03-20 07:42 | disposition home or self-care (01) ==
LOC: MW.ED 06:46
DX: G62.9 Polyneuropathy, unspecified (principal)
CPT/HCPCS: 93005; 99283-25

== ENCOUNTER 2021-10-08 03:45 | Emergency (ER) | payer BC ==
[2021-10-08] MEDS ORDERED: Ondansetron 4 MG/2 ML SDV IVPUSH ONE (04:17)
[2021-10-08] MEDS ORDERED: Morphine 4 MG/ML VIAL IVPUSH ONE (04:17)
[2021-10-08] MEDS ORDERED: Sodium Chloride 0.9% 1,000 ML IV ONE (04:17)
[2021-10-08] MEDS ORDERED: Ketorolac 30 MG/ML SDV IVPUSH ONE (04:17)
[2021-10-08] MEDS ORDERED: Iopamidol 755 Mg/ML 100 ML Bottle IVPUSH ONE (04:54)
[2021-10-08 05:00] LABS: BLOOD UREA NITROGEN,BUN 9 mg/dL (7.0-18.0); CARBON DIOXIDE,CO2 23.6 mmol/L (21.0-32.0); CHLORIDE,CL 102 mmol/L (98-107); GLUCOSE RANDOM 84 mg/dL (74-106); POTASSIUM,K 3.7 mmol/L (3.5-5.1); SODIUM,NA 140 mmol/L (136-145)
[2021-10-08 06:24] VITALS: BP 143/76; PULSE 73
== END 2021-10-08 07:06 | disposition home or self-care (01) ==
LOC: MW.ED 03:45
DX: M54.50 Low back pain, unspecified (principal); R11.0 Nausea
CPT/HCPCS: 36415; 72131; 74177; 80053; 81001; 85025; 96374; 96375; 99284; J1885; J2270; J2405; J7030; Q9967

== ENCOUNTER 2022-09-25 03:50 | Emergency (ER) | payer BC ==
[2022-09-25] MEDS ORDERED: Lactated Ringers 1,000 ML IV STA (04:02)
[2022-09-25] MEDS ORDERED: Ondansetron 4 MG/2 ML SDV IVPUSH ONE (04:02)
[2022-09-25] MEDS ORDERED: Magnesium Sulfate/Water 2 GM in Premix Bag 1 BAG IV ONE (04:15)
[2022-09-25 05:03] LABS: BLOOD UREA NITROGEN,BUN 19 mg/dL (7.0-18.0); CARBON DIOXIDE,CO2 29.1 mmol/L (21.0-32.0); CHLORIDE,CL 90 mmol/L (98-107); ESTIMATED GFR 49 mL/min (>60); GLUCOSE RANDOM 106 mg/dL (74-106); POTASSIUM,K 2.8 mmol/L (3.5-5.1); SODIUM,NA 133 mmol/L (136-145)
[2022-09-25 05:18] LABS: CORONAVIRUS COVID-19 NAA NEGATIVE (NEGATIVE); INFLUENZA A NAA POSITIVE (NEGATIVE); INFLUENZA B NAA NEGATIVE (NEGATIVE); RESPIRATORY SYNCYTIAL VIR NAA NEGATIVE (NEGATIVE)
[2022-09-25] MEDS ORDERED: Potassium Chloride 20 MEQ in Premix Bag 1 BAG IV ONE ×2 (05:19→05:28)
[2022-09-25] MEDS ORDERED: Lactated Ringers 1,000 ML IV ONE (05:20)
[2022-09-25] MEDS ORDERED: Magnesium Sulfate/Water 4 GM in Premix Bag 1 BAG IV ONE (05:20)
[2022-09-25 11:06] VITALS: BP 124/77; PULSE 75
== END 2022-09-25 11:20 | disposition home or self-care (01) ==
LOC: MW.ED 03:50
DX: E86.0 Dehydration (principal); E83.42 Hypomagnesemia; E87.6 Hypokalemia; J10.1 Influenza due to other identified influenza virus with other respiratory manifestations; Z20.822 Contact with and (suspected) exposure to COVID-19
CPT/HCPCS: 0241U; 36415; 80053; 80307; 83605; 83690; 83735; 85025; 85610; 93005; 96365; 96366; 96368; 96375; 99284; J2405; J3475; J3480; J7120

== ENCOUNTER 2023-01-30 06:27 | Day surgery (SDC) | payer BC ==
[~2023-01-30 06:27] MED LIST: Lactated Ringers 1,000 ML IV SCH
[2023-01-30] MEDS ORDERED: fentaNYL 100 MCG/2 ML SDV ONE (07:26)
[2023-01-30] MEDS ORDERED: Midazolam 1 MG/ML 2 ML SDV ONE (07:26)
[2023-01-30] MEDS ORDERED: propofoL 50 ML ONE (07:26)
[2023-01-30] MEDS ORDERED: Propofol 200 MG/20 ML SDV ONE ×2 (08:15→08:37)
[2023-01-30 09:34] VITALS: BP 115/56; PULSE 70
== END 2023-01-30 09:55 | disposition home or self-care (01) ==
LOC: MW.SDS 06:27
PROVIDERS: ATTEND Surgery
DX: D12.7 Benign neoplasm of rectosigmoid junction (principal); D12.3 Benign neoplasm of transverse colon; K29.50 Unspecified chronic gastritis without bleeding; K44.9 Diaphragmatic hernia without obstruction or gangrene; K52.9 Noninfective gastroenteritis and colitis, unspecified; F32.A Depression, unspecified; K21.9 Gastro-esophageal reflux disease without esophagitis; G47.00 Insomnia, unspecified; I10 Essential (primary) hypertension; E66.9 Obesity, unspecified; Z79.899 Other long term (current) drug therapy; Z98.890 Other specified postprocedural states; Z87.19 Personal history of other diseases of the digestive system; Z68.30 Body mass index [BMI] 30.0-30.9, adult
CPT/HCPCS: 43239; 45380; 45381; 45385; J2250; J2704; J3010; J7120; 00813

== ENCOUNTER 2023-09-14 11:26 | Emergency (ER) | payer BC ==
[2023-09-14] MEDS ORDERED: Ketorolac 30 MG/ML SDV IM ONE (13:02)
[2023-09-14] MEDS ORDERED: Orphenadrine 60 MG/2 ML Inj IM ONE (13:02)
[2023-09-14] MEDS ORDERED: Lidocaine 4% 1 each Patch TOP STA (13:03)
[2023-09-14 13:37] VITALS: BP 159/89; PULSE 74
== END 2023-09-14 13:35 | disposition home or self-care (01) ==
LOC: MW.ED 11:26
DX: M54.50 Low back pain, unspecified (principal); I10 Essential (primary) hypertension; E66.9 Obesity, unspecified; Z90.49 Acquired absence of other specified parts of digestive tract; Z68.29 Body mass index [BMI] 29.0-29.9, adult
CPT/HCPCS: 96372; 99283; A9270; J1885; J2360